=== PATIENT | female | born 1950 | race Caucasian/White ===

== ENCOUNTER 2016-05-08 18:46 | Inpatient (IN) | payer BC, OTHER ==
[~2016-05-08] VITALS: Ht 162.6 cm; Wt 77.1 kg
[~2016-05-08 18:46] MED LIST: ALPR0.254 PO; GABA600T2 PO; HYDR25TA9 PO; LIDO700A4 TP; LOSA25TA4 PO; OMEP40CA5 PO; OXYC-250 PO; POTA8CAP PO; ROPI4TAB4 PO; SERT100T8 PO
[2016-05-08] MEDS: IV NORMAL SALINE 1000ML BAG 1,000 ML IV SCH (20:27)
[2016-05-08] MEDS ORDERED: ONDANSETRON PF 4 MG/2 ML VIAL. IV PRN (20:30)
[2016-05-08] MEDS ORDERED: CEFTRIAXONE 1GM IVPB FOR OMNI 50 ML IV ONE (20:30)
[2016-05-08] MEDS ORDERED: AZITHROMYCIN 500 MG in IV NORMAL SALINE 250ML 250 ML IV ONE (20:30)
--- NOTE | 2016-05-08 20:40 | PHYS DOC ---
Past Medical History Past Medical History: Anxiety, Depression, GERD, Hypertension Additional Past Medical Histor: DDD, RLS Past Surgical History: Appendectomy, Cholecystectomy, Hysterectomy Additional Information: RECENTLY QUIT FROM A LIFETIME OF SMOKING Alcohol Use: None Drug Use: None Adult General Chief Complaint Chief Complaint: BREAST PROBLEM HPI HPI 65-year-old female presents with a persistent nagging cough and severe right- sided chest pain. She states she feels like some stabbing her in the right breast. This is much worse when she takes a deep breath. She states she is coughing up phlegm. She also complains of shortness of breath. She denies any hemoptysis or unintended weight loss. Patient has been a long-term smoker. [] Review of Systems Review of Systems Constitutional: Denies fever or chills [] Eyes: Denies change in visual acuity, redness, or eye pain [] HENT: Denies nasal congestion or sore throat [] Respiratory: Per history of present illness [] Cardiovascular: No additional information not addressed in HPI [] GI: Denies abdominal pain, nausea, vomiting, bloody stools or diarrhea [] : Denies dysuria or hematuria [] Musculoskeletal: Denies back pain or joint pain [] Integument: Denies rash or skin lesions [] Neurologic: Denies headache, focal weakness or sensory changes [] Endocrine: Denies polyuria or polydipsia [] Current Medications Current Medications Current Medications Medications (Trade) Dose Ordered Sig/Eduarda Start Time Stop Time Status Last Admin Dose Admin Azithromycin (Zithromax 500mg Ivpb For Omni) 250 ml @ 250 mls/hr 1X ONCE 05/08/16 20:45 05/08/16 21:44 DC 05/08/16 21:41 250 MLS/HR Azithromycin/ Sodium Chloride (Zithromax/Iv Sodium Chloride 0.9% 250ml) 250 ml @ 250 mls/hr 1X ONCE 05/08/16 20:30 05/08/16 21:29 UNV Ceftriaxone Sodium 50 ml @ 100 mls/hr 1X ONCE 05/08/16 20:30 05/08/16 20:59 DC 05/08/16 21:07 100 MLS/HR Fentanyl Citrate 50 mcg 50 mcg PRN Q2HR PRN 05/08/16 20:30 05/09/16 20:29 05/08/16 21:06 50 MCG Ondansetron HCl (Zofran) 4 mg PRN Q8HRS PRN 05/08/16 20:30 05/09/16 20:29 Sodium Chloride 1,000 ml @ 150 mls/hr Q6H40M 05/08/16 20:27 05/09/16 20:26 Allergies Allergies Allergies Coded Allergies Type Severity Reaction Last Updated Verified No Known Drug Allergies 01/31/16 No Physical Exam Physical Exam Constitutional: Well developed, well nourished, no acute distress, non-toxic appearance. [] HENT: Normocephalic, atraumatic, bilateral external ears normal, oropharynx moist, no oral exudates, nose normal. [] Eyes: PERRLA, EOMI, conjunctiva normal, no discharge. [] Neck: Normal range of motion, no tenderness, supple, no stridor. [] Cardiovascular: Tachycardia [] Lungs & Thorax: Rales right base apical wheezes] Abdomen: Bowel sounds normal, soft, no tenderness, no masses, no pulsatile masses. [] Skin: Warm, dry, no erythema, no rash. [] Back: No tenderness, no CVA tenderness. [] Extremities: No tenderness, no cyanosis, no clubbing, ROM intact, no edema. [] Neurologic: Alert and oriented X 3, normal motor function, normal sensory function, no focal deficits noted. [] Psychologic: Affect normal, judgement normal, mood normal. [] Current Patient Data Vital Signs Vital Signs Date Time Temp Pulse Resp B/P Pulse Ox O2 Delivery O2 Flow Rate FiO2 05/08/16 21:06 Nasal Cannula 05/08/16 19:04 99.3 96 20 137/78 91 99.3 Lab Values Laboratory Tests Test 05/08/16 20:56 White Blood Count 30.4x10^3/uL (4.0-11.0) H Red Blood Count 4.71x10^6/uL (3.50-5.40) Hemoglobin 14.7g/dL (12.0-15.5) Hematocrit 45.4% (36.0-47.0) Mean Corpuscular Volume 96fL (79-100) Mean Corpuscular Hemoglobin 31pg (25-35) Mean Corpuscular Hemoglobin Concent 32g/dL (31-37) Red Cell Distribution Width 13.8% (11.5-14.5) Platelet Count 219x10^3/uL (140-400) Neutrophils (%) (Auto) 90% (31-73) H Lymphocytes (%) (Auto) 4% (24-48) L Monocytes (%) (Auto) 5% (0-9) Eosinophils (%) (Auto) 0% (0-3) Basophils (%) (Auto) 0% (0-3) Neutrophils # (Auto) 27.4x10^3uL (1.8-7.7) H Lymphocytes # (Auto) 1.2x10^3/uL (1.0-4.8) Monocytes # (Auto) 1.6x10^3/uL (0.0-1.1) H Eosinophils # (Auto) 0.1x10^3/uL (0.0-0.7) Basophils # (Auto) 0.1x10^3/uL (0.0-0.2) Segmented Neutrophils % 82% (35-66) H Band Neutrophils % 6% (0-9) Lymphocytes % 3% (24-48) L Monocytes % 9% (0-10) Toxic Granulation Slight Platelet Estimate Adequate (ADEQUATE) Sodium Level 131mmol/L (136-145) L Potassium Level 3.8mmol/L (3.5-5.1) Chloride Level 93mmol/L (98-107) L Carbon Dioxide Level 28mmol/L (21-32) Anion Gap 10 (6-14) Blood Urea Nitrogen 13mg/dL (7-20) Creatinine 0.7mg/dL (0.6-1.0) Estimated GFR (Cockcroft-Gault) 84.5 BUN/Creatinine Ratio 19 (6-20) Glucose Level 123mg/dL (70-99) H Lactic Acid Level 0.7mmol/L (0.4-2.0) Calcium Level 8.8mg/dL (8.5-10.1) Total Bilirubin 1.0mg/dL (0.2-1.0) Aspartate Amino Transferase (AST) 17U/L (15-37) Alanine Aminotransferase (ALT) 13U/L (14-59) L Alkaline Phosphatase 83U/L (46-116) Total Protein 6.9g/dL (6.4-8.2) Albumin 2.6g/dL (3.4-5.0) L Albumin/Globulin Ratio 0.6 (1.0-1.7) L Laboratory Tests 05/08/16 20:56 Laboratory Tests 05/08/16 20:56 EKG EKG [] Radiology/Procedures Radiology/Procedures [Chest x-ray right middle lobe infiltrate] Course & Med Decision Making Course & Med Decision Making Pertinent Labs and Imaging studies reviewed. (See chart for details) [ED course: Evaluation reveals a 65-year-old female with severe right sided chest pain and productive cough as well as moderately hypoxic. Patient was placed on 2 L of oxygen which did help alleviate her symptoms. Her initial oxygen saturation was 86% and after 2 L it was up into the low 90s. She was given Rocephin and azithromycin during her stay in the emergency department I spoke with Dr. Lynn who agreed to accept patient for admission. Patient is in agreement with this plan.] Dragon Disclaimer Dragon Disclaimer This electronic medical record was generated, in whole or in part, using a voice recognition dictation system. Departure Departure Impression: Primary Impression: Community acquired pneumonia Disposition: ADMITTED INPATIENT Admitting Physician: Other (Leah) Condition: IMPROVED Referrals: ROBINSON BOLIVAR MD (PCP) BARRY PAREDES DO May 08, 2016 20:40
[2016-05-08] MEDS ORDERED: AZITHRMYCN 500MG IVPB FOR OMNI 250 ML IV ONE (20:45)
[2016-05-08] MEDS: FENTANYL PF 100 MCG/2 ML VIAL. IV PRN (21:06)
[2016-05-08 21:08] LABS: HEMATOCRIT 45.4 % (36.0-47.0); HEMOGLOBIN 14.7 g/dL (12.0-15.5); MEAN CORPUSCULAR HEMOGLOBIN 31 pg (25-35); MEAN CORPUSCULAR HGB CONC 32 g/dL (31-37); MEAN CORPUSCULAR VOLUME 96 fL (79-100); RED BLOOD COUNT 4.71 x10^6/uL (3.50-5.40); RED CELL DISTRIBUTION WIDTH 13.8 % (11.5-14.5); WHITE BLOOD COUNT 30.4 x10^3/uL (4.0-11.0)
[2016-05-08 21:09] LABS: BASO # 0.1 x10^3/uL (0.0-0.2); BASO % 0 % (0-3); EOS % 0 % (0-3); LYMPH # 1.2 x10^3/uL (1.0-4.8); LYMPH % 4 % (24-48); MONO % 5 % (0-9); NEUT % 90 % (31-73); PLATELET COUNT 219 x10^3/uL (140-400)
[2016-05-08 21:42] LABS: PLT ESTIMATE ADEQUATE (ADEQUATE); TOXIC GRANULATION SLIGHT
[2016-05-08 21:43] LABS: CALCIUM 8.8 mg/dL (8.5-10.1); CREATININE 0.7 mg/dL (0.6-1.0); GFR 84.5; POTASSIUM 3.8 mmol/L (3.5-5.1)
[2016-05-08 21:46] LABS: ALBUMIN 2.6 g/dL (3.4-5.0); ALBUMIN/GLOBULIN RATIO 0.6 (1.0-1.7); TOTAL PROTEIN 6.9 g/dL (6.4-8.2)
--- NOTE | 2016-05-08 23:45 | ACF ---
Admission Forms Criteria PNEUMONIA, COMMUNITY ACQUIRED Clinical Indications for Admission to Inpatient Care ( Place 'X' for any and all applicable criteria): Admission is indicated for ANY ONE of the following (1)(2)(3): [ ]I. Hypoxemia indicated by ANY ONE of the following: [ ]a) Oxygen saturation less than 90% while breathing room air [ ]b) PO2 less than 60 mm Hg (8.0 kPa) while breathing room air [ ]c) Chronic lung disease with significant deterioration from baseline oxygenation [X]II. Appropriate diagnostic testing and treatment unavailable in outpatient or recovery facility (eg,testing or infection control measures unavailable(10) [ ]III. Moderate-risk or high-risk category patients (Pneumonia Severity Index (PSI) class IV or V, or CURB-65 score of 3 or greater). [ ]IV. Outpatient treatment failure as indicated by ANY ONE of the following(9) : [ ]a) Failure to respond to antibiotic (eg, resistant organism) [ ]b) Clinically significant adverse effects from medication (eg, vomiting) [ ]c) Complications of pneumonia (eg, empyema, bacteremia) [ ]d) Significant worsening of comorbid cond necessitating inpatient care (eg, chronic heart failure) [ ]V. Intermediate-risk category patients (eg, PSI class III or CURB-65 score 2) who do not improve with initial therapy and observation. [ ]. Immunocompromised patients (eg, AIDS, chronic steroid use) at moderate or high risk based on clinical evaluation. [ ]VII. Complicated pleural effusions (eg, exudative, loculated) [ ]VIII.Hemodynamic instability [ ] IX. Altered mental status that is severe or persistent. [ ]X. Dehydration that is severe or persistent. [ ]XI. Bacteremia [ ]XII. Respiratory finding (eg. tachypnea) that do not respond to outpatient or observation care treatment Extended stay beyond goal length of stay may be needed for (20) [ ]a) Unclear diagnosis [ ]b) Pleural disease [ ]c) Severe pneumonia or treatment failure (25 [ ]d) Respiratory failure (anticipate invasive or noninvasive ventilatory support) [ ]e) Abnormal serum electrolytes (serum Na concentration less than 135 mEq/L (mmol/L) (32)(33) [ ]f) Clinically significant comorbid illness (eg, heart failure, atrial fibrillation with rapid heart rate, alcohol withdrawal, renal insufficiency)(34)(35) [ ]g) Comorbid acute exacerbation of COPD(36) [ ]h) Concomitant diagnosis of malignancy that may be associated with malnutrition, immunologic impairment, or bronchial obstruction. [ ]i) Concomitant altered mental status [ ]j) Culture-identified Gram-negative or antibiotic-resistant organism (eg, Pseudomonas, methicillin-resistant Staphylococcus aureus)(30) [ ]k) Healthcare-associated pneumonia The original [facility] content created by [employer] has been revised. The portions of the content which have been revised are identified through the use of italic text or in bold, and [facility] has neither reviewed nor approved the modified material. All other unmodified content is copyright [facility]. Please see references footnoted in the original [facility] edition 2016 Admission Criteria Met?: Yes JCARLOS ALBERT. May 08, 2016 23:45
[2016-05-09] VITALS (7 sets, daily range): BP systolic 114–163; BP diastolic 66–85
[2016-05-09] MEDS: IV NORMAL SALINE 1000ML BAG 1,000 ML IV SCH ×3 (02:41→12:39)
[2016-05-09] MEDS: FENTANYL PF 100 MCG/2 ML VIAL. IV PRN ×2 (03:44→07:45)
[2016-05-09 05:20] LABS: BASO # 0.1 x10^3/uL (0.0-0.2); BASO % 0 % (0-3); EOS % 0 % (0-3); HEMOGLOBIN 13.6 g/dL (12.0-15.5); LYMPH # 2.1 x10^3/uL (1.0-4.8); LYMPH % 9 % (24-48); MEAN CORPUSCULAR HEMOGLOBIN 32 pg (25-35); MEAN CORPUSCULAR HGB CONC 32 g/dL (31-37); MEAN CORPUSCULAR VOLUME 97 fL (79-100); MONO % 6 % (0-9); NEUT % 85 % (31-73); PLATELET COUNT 212 x10^3/uL (140-400); RED BLOOD COUNT 4.32 x10^6/uL (3.50-5.40); RED CELL DISTRIBUTION WIDTH 13.5 % (11.5-14.5); WHITE BLOOD COUNT 24.4 x10^3/uL (4.0-11.0)
[2016-05-09 05:42] LABS: CALCIUM 8.8 mg/dL (8.5-10.1); CREATININE 0.7 mg/dL (0.6-1.0); GFR 84.5; POTASSIUM 3.7 mmol/L (3.5-5.1)
--- NOTE | 2016-05-09 07:50 | PDOC1 ---
History and Physical Current Problem List Problem List Problems Medical Problems: (1) Community acquired pneumonia Status: Acute Current Medications Current Medications Current Medications Medications (Trade) Dose Ordered Sig/Eduarda Start Time Stop Time Status Last Admin Dose Admin Azithromycin (Zithromax 500mg Ivpb For Omni) 250 ml @ 250 mls/hr 1X ONCE 05/08/16 20:45 05/08/16 21:44 DC 05/08/16 21:41 250 MLS/HR Azithromycin/ Sodium Chloride (Zithromax/Iv Sodium Chloride 0.9% 250ml) 250 ml @ 250 mls/hr 1X ONCE 05/08/16 20:30 05/08/16 21:29 UNV Ceftriaxone Sodium 50 ml @ 100 mls/hr 1X ONCE 05/08/16 20:30 05/08/16 20:59 DC 05/08/16 21:07 100 MLS/HR Fentanyl Citrate 50 mcg 50 mcg PRN Q2HR PRN 05/08/16 20:30 05/09/16 20:29 05/09/16 07:45 50 MCG Ondansetron HCl (Zofran) 4 mg PRN Q8HRS PRN 05/08/16 20:30 05/09/16 20:29 Sodium Chloride 1,000 ml @ 150 mls/hr Q6H40M 05/08/16 20:27 05/09/16 20:26 05/09/16 02:41 150 MLS/HR Allergies Allergies Allergies Coded Allergies Type Severity Reaction Last Updated Verified No Known Drug Allergies 01/31/16 No ROS Review of System CONSTITUTIONAL: No fever or chills EYES: No recent changes SKIN: No rash or itching CARDIOVASCULAR: No chest pain, syncope, palpitations, or edema RESPIRATORY: SOB or cough GASTROINTESTINAL: No nausea, vomiting or abdominal pain NEUROLOGICAL: No headaches or weakness ENDOCRINE: No cold or heat intolerance GENITOURINARY: No urgency or frequency of urination MUSCULOSKELETAL: No back pain or joint pain LYMPHATICS: No enlarged lymph nodes PSYCHIATRIC: No anxiety or depression Physical Exam Physical Exam GEN.: No apparent distress. Alert and oriented. HEENT: Head is normocephalic, atraumatic NECK: Supple. no jvd LUNGS: Clear to auscultation. normal airflow HEART: RRR, S1, S2 present. Peripheral pulses intact ABDOMEN: Soft, nontender. Positive bowel sounds. EXTREMITIES: Without any cyanosis. NEUROLOGIC: Normal speech, normal tone PSYCHIATRIC: Normal affect, normal mood. SKIN: No ulcerations Vitals Vitals Vital Signs Date Time Temp Pulse Resp B/P Pulse Ox O2 Delivery O2 Flow Rate FiO2 05/09/16 03:44 18 90 Room Air 05/09/16 03:00 98.3 78 116/76 98.3 Labs Labs Laboratory Tests Test 05/08/16 20:56 05/08/16 23:15 05/09/16 04:50 White Blood Count 30.4x10^3/uL (4.0-11.0) 24.4x10^3/uL (4.0-11.0) Red Blood Count 4.71x10^6/uL (3.50-5.40) 4.32x10^6/uL (3.50-5.40) Hemoglobin 14.7g/dL (12.0-15.5) 13.6g/dL (12.0-15.5) Hematocrit 45.4% (36.0-47.0) 42.0% (36.0-47.0) Mean Corpuscular Volume 96fL (79-100) 97fL (79-100) Mean Corpuscular Hemoglobin 31pg (25-35) 32pg (25-35) Mean Corpuscular Hemoglobin Concent 32g/dL (31-37) 32g/dL (31-37) Red Cell Distribution Width 13.8% (11.5-14.5) 13.5% (11.5-14.5) Platelet Count 219x10^3/uL (140-400) 212x10^3/uL (140-400) Neutrophils (%) (Auto) 90% (31-73) 85% (31-73) Lymphocytes (%) (Auto) 4% (24-48) 9% (24-48) Monocytes (%) (Auto) 5% (0-9) 6% (0-9) Eosinophils (%) (Auto) 0% (0-3) 0% (0-3) Basophils (%) (Auto) 0% (0-3) 0% (0-3) Neutrophils # (Auto) 27.4x10^3uL (1.8-7.7) 20.8x10^3uL (1.8-7.7) Lymphocytes # (Auto) 1.2x10^3/uL (1.0-4.8) 2.1x10^3/uL (1.0-4.8) Monocytes # (Auto) 1.6x10^3/uL (0.0-1.1) 1.4x10^3/uL (0.0-1.1) Eosinophils # (Auto) 0.1x10^3/uL (0.0-0.7) 0.0x10^3/uL (0.0-0.7) Basophils # (Auto) 0.1x10^3/uL (0.0-0.2) 0.1x10^3/uL (0.0-0.2) Segmented Neutrophils % 82% (35-66) Band Neutrophils % 6% (0-9) Lymphocytes % 3% (24-48) Monocytes % 9% (0-10) Toxic Granulation Slight Platelet Estimate Adequate (ADEQUATE) Sodium Level 131mmol/L (136-145) 137mmol/L (136-145) Potassium Level 3.8mmol/L (3.5-5.1) 3.7mmol/L (3.5-5.1) Chloride Level 93mmol/L (98-107) 99mmol/L (98-107) Carbon Dioxide Level 28mmol/L (21-32) 29mmol/L (21-32) Anion Gap 10 (6-14) 9 (6-14) Blood Urea Nitrogen 13mg/dL (7-20) 13mg/dL (7-20) Creatinine 0.7mg/dL (0.6-1.0) 0.7mg/dL (0.6-1.0) Estimated GFR (Cockcroft-Gault) 84.5 84.5 BUN/Creatinine Ratio 19 (6-20) Glucose Level 123mg/dL (70-99) 115mg/dL (70-99) Lactic Acid Level 0.7mmol/L (0.4-2.0) 0.7mmol/L (0.4-2.0) Calcium Level 8.8mg/dL (8.5-10.1) 8.8mg/dL (8.5-10.1) Total Bilirubin 1.0mg/dL (0.2-1.0) Aspartate Amino Transf (AST/SGOT) 17U/L (15-37) Alanine Aminotransferase (ALT/SGPT) 13U/L (14-59) Alkaline Phosphatase 83U/L (46-116) Total Protein 6.9g/dL (6.4-8.2) Albumin 2.6g/dL (3.4-5.0) Albumin/Globulin Ratio 0.6 (1.0-1.7) Laboratory Tests Test 05/08/16 20:56 05/08/16 23:15 05/09/16 04:50 White Blood Count 30.4x10^3/uL (4.0-11.0) 24.4x10^3/uL (4.0-11.0) Red Blood Count 4.71x10^6/uL (3.50-5.40) 4.32x10^6/uL (3.50-5.40) Hemoglobin 14.7g/dL (12.0-15.5) 13.6g/dL (12.0-15.5) Hematocrit 45.4% (36.0-47.0) 42.0% (36.0-47.0) Mean Corpuscular Volume 96fL (79-100) 97fL (79-100) Mean Corpuscular Hemoglobin 31pg (25-35) 32pg (25-35) Mean Corpuscular Hemoglobin Concent 32g/dL (31-37) 32g/dL (31-37) Red Cell Distribution Width 13.8% (11.5-14.5) 13.5% (11.5-14.5) Platelet Count 219x10^3/uL (140-400) 212x10^3/uL (140-400) Neutrophils (%) (Auto) 90% (31-73) 85% (31-73) Lymphocytes (%) (Auto) 4% (24-48) 9% (24-48) Monocytes (%) (Auto) 5% (0-9) 6% (0-9) Eosinophils (%) (Auto) 0% (0-3) 0% (0-3) Basophils (%) (Auto) 0% (0-3) 0% (0-3) Neutrophils # (Auto) 27.4x10^3uL (1.8-7.7) 20.8x10^3uL (1.8-7.7) Lymphocytes # (Auto) 1.2x10^3/uL (1.0-4.8) 2.1x10^3/uL (1.0-4.8) Monocytes # (Auto) 1.6x10^3/uL (0.0-1.1) 1.4x10^3/uL (0.0-1.1) Eosinophils # (Auto) 0.1x10^3/uL (0.0-0.7) 0.0x10^3/uL (0.0-0.7) Basophils # (Auto) 0.1x10^3/uL (0.0-0.2) 0.1x10^3/uL (0.0-0.2) Segmented Neutrophils % 82% (35-66) Band Neutrophils % 6% (0-9) Lymphocytes % 3% (24-48) Monocytes % 9% (0-10) Toxic Granulation Slight Platelet Estimate Adequate (ADEQUATE) Sodium Level 131mmol/L (136-145) 137mmol/L (136-145) Potassium Level 3.8mmol/L (3.5-5.1) 3.7mmol/L (3.5-5.1) Chloride Level 93mmol/L (98-107) 99mmol/L (98-107) Carbon Dioxide Level 28mmol/L (21-32) 29mmol/L (21-32) Anion Gap 10 (6-14) 9 (6-14) Blood Urea Nitrogen 13mg/dL (7-20) 13mg/dL (7-20) Creatinine 0.7mg/dL (0.6-1.0) 0.7mg/dL (0.6-1.0) Estimated GFR (Cockcroft-Gault) 84.5 84.5 BUN/Creatinine Ratio 19 (6-20) Glucose Level 123mg/dL (70-99) 115mg/dL (70-99) Lactic Acid Level 0.7mmol/L (0.4-2.0) 0.7mmol/L (0.4-2.0) Calcium Level 8.8mg/dL (8.5-10.1) 8.8mg/dL (8.5-10.1) Total Bilirubin 1.0mg/dL (0.2-1.0) Aspartate Amino Transf (AST/SGOT) 17U/L (15-37) Alanine Aminotransferase (ALT/SGPT) 13U/L (14-59) Alkaline Phosphatase 83U/L (46-116) Total Protein 6.9g/dL (6.4-8.2) Albumin 2.6g/dL (3.4-5.0) Albumin/Globulin Ratio 0.6 (1.0-1.7) VTE Prophylaxis Ordered VTE Prophylaxis Devices: No VTE Pharmacological Prophylaxi: No BARBARA REID MD May 09, 2016 07:50
--- NOTE | 2016-05-09 08:14 | RAD ---
Portable chest, 05/08/2016: History: Cough, pain Comparison is made to a study from 06/07/2007. The heart size and pulmonary vascularity are normal. There is a new moderate-sized lobe opacity projected over the right lower chest. The left lung is clear. There is no evidence of pleural fluid or pneumothorax. A surgical plate and screws is evident in the lower cervical spine. IMPRESSION: New right lower chest opacity with diagnostic considerations including parenchymal consolidation due to pneumonia or a fissural collection of pleural fluid. A neoplastic etiology cannot be excluded. Radiographic follow-up and/or CT scanning is suggested.
--- NOTE | 2016-05-09 08:57 | PDOC ---
PULMONARY PROGRESS NOTES Vitals Vital Signs Date Time Temp Pulse Resp B/P Pulse Ox O2 Delivery O2 Flow Rate FiO2 05/09/16 07:50 98.2 72 18 134/81 Room Air 98.2 05/09/16 03:44 90 Labs Laboratory Tests Test 05/08/16 20:56 05/08/16 23:15 05/09/16 04:50 White Blood Count 30.4x10^3/uL (4.0-11.0) 24.4x10^3/uL (4.0-11.0) Red Blood Count 4.71x10^6/uL (3.50-5.40) 4.32x10^6/uL (3.50-5.40) Hemoglobin 14.7g/dL (12.0-15.5) 13.6g/dL (12.0-15.5) Hematocrit 45.4% (36.0-47.0) 42.0% (36.0-47.0) Mean Corpuscular Volume 96fL (79-100) 97fL (79-100) Mean Corpuscular Hemoglobin 31pg (25-35) 32pg (25-35) Mean Corpuscular Hemoglobin Concent 32g/dL (31-37) 32g/dL (31-37) Red Cell Distribution Width 13.8% (11.5-14.5) 13.5% (11.5-14.5) Platelet Count 219x10^3/uL (140-400) 212x10^3/uL (140-400) Neutrophils (%) (Auto) 90% (31-73) 85% (31-73) Lymphocytes (%) (Auto) 4% (24-48) 9% (24-48) Monocytes (%) (Auto) 5% (0-9) 6% (0-9) Eosinophils (%) (Auto) 0% (0-3) 0% (0-3) Basophils (%) (Auto) 0% (0-3) 0% (0-3) Neutrophils # (Auto) 27.4x10^3uL (1.8-7.7) 20.8x10^3uL (1.8-7.7) Lymphocytes # (Auto) 1.2x10^3/uL (1.0-4.8) 2.1x10^3/uL (1.0-4.8) Monocytes # (Auto) 1.6x10^3/uL (0.0-1.1) 1.4x10^3/uL (0.0-1.1) Eosinophils # (Auto) 0.1x10^3/uL (0.0-0.7) 0.0x10^3/uL (0.0-0.7) Basophils # (Auto) 0.1x10^3/uL (0.0-0.2) 0.1x10^3/uL (0.0-0.2) Segmented Neutrophils % 82% (35-66) Band Neutrophils % 6% (0-9) Lymphocytes % 3% (24-48) Monocytes % 9% (0-10) Toxic Granulation Slight Platelet Estimate Adequate (ADEQUATE) Sodium Level 131mmol/L (136-145) 137mmol/L (136-145) Potassium Level 3.8mmol/L (3.5-5.1) 3.7mmol/L (3.5-5.1) Chloride Level 93mmol/L (98-107) 99mmol/L (98-107) Carbon Dioxide Level 28mmol/L (21-32) 29mmol/L (21-32) Anion Gap 10 (6-14) 9 (6-14) Blood Urea Nitrogen 13mg/dL (7-20) 13mg/dL (7-20) Creatinine 0.7mg/dL (0.6-1.0) 0.7mg/dL (0.6-1.0) Estimated GFR (Cockcroft-Gault) 84.5 84.5 BUN/Creatinine Ratio 19 (6-20) Glucose Level 123mg/dL (70-99) 115mg/dL (70-99) Lactic Acid Level 0.7mmol/L (0.4-2.0) 0.7mmol/L (0.4-2.0) Calcium Level 8.8mg/dL (8.5-10.1) 8.8mg/dL (8.5-10.1) Total Bilirubin 1.0mg/dL (0.2-1.0) Aspartate Amino Transf (AST/SGOT) 17U/L (15-37) Alanine Aminotransferase (ALT/SGPT) 13U/L (14-59) Alkaline Phosphatase 83U/L (46-116) Total Protein 6.9g/dL (6.4-8.2) Albumin 2.6g/dL (3.4-5.0) Albumin/Globulin Ratio 0.6 (1.0-1.7) Laboratory Tests Test 05/08/16 20:56 05/08/16 23:15 05/09/16 04:50 White Blood Count 30.4x10^3/uL (4.0-11.0) 24.4x10^3/uL (4.0-11.0) Red Blood Count 4.71x10^6/uL (3.50-5.40) 4.32x10^6/uL (3.50-5.40) Hemoglobin 14.7g/dL (12.0-15.5) 13.6g/dL (12.0-15.5) Hematocrit 45.4% (36.0-47.0) 42.0% (36.0-47.0) Mean Corpuscular Volume 96fL (79-100) 97fL (79-100) Mean Corpuscular Hemoglobin 31pg (25-35) 32pg (25-35) Mean Corpuscular Hemoglobin Concent 32g/dL (31-37) 32g/dL (31-37) Red Cell Distribution Width 13.8% (11.5-14.5) 13.5% (11.5-14.5) Platelet Count 219x10^3/uL (140-400) 212x10^3/uL (140-400) Neutrophils (%) (Auto) 90% (31-73) 85% (31-73) Lymphocytes (%) (Auto) 4% (24-48) 9% (24-48) Monocytes (%) (Auto) 5% (0-9) 6% (0-9) Eosinophils (%) (Auto) 0% (0-3) 0% (0-3) Basophils (%) (Auto) 0% (0-3) 0% (0-3) Neutrophils # (Auto) 27.4x10^3uL (1.8-7.7) 20.8x10^3uL (1.8-7.7) Lymphocytes # (Auto) 1.2x10^3/uL (1.0-4.8) 2.1x10^3/uL (1.0-4.8) Monocytes # (Auto) 1.6x10^3/uL (0.0-1.1) 1.4x10^3/uL (0.0-1.1) Eosinophils # (Auto) 0.1x10^3/uL (0.0-0.7) 0.0x10^3/uL (0.0-0.7) Basophils # (Auto) 0.1x10^3/uL (0.0-0.2) 0.1x10^3/uL (0.0-0.2) Segmented Neutrophils % 82% (35-66) Band Neutrophils % 6% (0-9) Lymphocytes % 3% (24-48) Monocytes % 9% (0-10) Toxic Granulation Slight Platelet Estimate Adequate (ADEQUATE) Sodium Level 131mmol/L (136-145) 137mmol/L (136-145) Potassium Level 3.8mmol/L (3.5-5.1) 3.7mmol/L (3.5-5.1) Chloride Level 93mmol/L (98-107) 99mmol/L (98-107) Carbon Dioxide Level 28mmol/L (21-32) 29mmol/L (21-32) Anion Gap 10 (6-14) 9 (6-14) Blood Urea Nitrogen 13mg/dL (7-20) 13mg/dL (7-20) Creatinine 0.7mg/dL (0.6-1.0) 0.7mg/dL (0.6-1.0) Estimated GFR (Cockcroft-Gault) 84.5 84.5 BUN/Creatinine Ratio 19 (6-20) Glucose Level 123mg/dL (70-99) 115mg/dL (70-99) Lactic Acid Level 0.7mmol/L (0.4-2.0) 0.7mmol/L (0.4-2.0) Calcium Level 8.8mg/dL (8.5-10.1) 8.8mg/dL (8.5-10.1) Total Bilirubin 1.0mg/dL (0.2-1.0) Aspartate Amino Transf (AST/SGOT) 17U/L (15-37) Alanine Aminotransferase (ALT/SGPT) 13U/L (14-59) Alkaline Phosphatase 83U/L (46-116) Total Protein 6.9g/dL (6.4-8.2) Albumin 2.6g/dL (3.4-5.0) Albumin/Globulin Ratio 0.6 (1.0-1.7) Medications Active Scripts Medications Dose Route/Sig Days Date Category Losartan Potassium 25 Mg Tablet 25 Mg PO DAILY 01/31/16 Reported Gabapentin 600 Mg Tablet 600 Mg PO TID 01/31/16 Reported Ropinirole Hcl 4 Mg Tablet 4 Mg PO DAILY 01/31/16 Reported Lidoderm (Lidocaine) 700 Mg Adh..patch 1 Patch TP DAILY 01/31/16 Reported Sertraline Hcl 100 Mg Tablet 100 Mg PO DAILY 01/31/16 Reported Omeprazole 40 Mg Capsule.dr 1 Cap PO DAILY 01/31/16 Reported Hydrochlorothiazide Tablet (Hydrochlorothiazide) 25 Mg Tablet 1 Tab PO DAILY 01/31/16 Reported Potassium Chloride 8 Meq Capsule.er 8 Meq PO BID 01/31/16 Reported Alprazolam 0.25 Mg Tablet 0.25 Mg PO PRN Q6HRS PRN 01/31/16 Reported Percocet 10-325 Mg Tablet (Oxycodone/Acetaminophen) 1 Each Tablet 1 Tab PO Q4-6HRS 01/31/16 Reported Impression . full note dictated treat for pneumonia repeat CT in 2 months MILA ARORA MD May 09, 2016 08:57
[2016-05-09] MEDS ORDERED: hydrALAZINE 20 MG/ML VIAL. IVP PRN (09:00)
[2016-05-09] MEDS ORDERED: ALBUTEROL SULFATE 2.5 MG/3 ML NEBU. NEB PRN (09:00)
[2016-05-09] MEDS ORDERED: ACETAMINOPHEN 325 MG TABLET. PO PRN (09:00)
[2016-05-09] MEDS ORDERED: ONDANSETRON PF 4 MG/2 ML VIAL. IV PRN (09:00)
[2016-05-09] MEDS: HYDROCODONE/APAP 5/325MG TABLET. PO PRN (10:45)
[2016-05-09] MEDS ORDERED: rOPINIRole 1 MG TABLET. PO SCH (11:00)
[2016-05-09] MEDS: PANTOPRAZOLE 40 MG TABLET. PO SCH (11:38)
[2016-05-09] MEDS: LOSARTAN POTASSIUM 25 MG TABLET. PO SCH (11:38)
[2016-05-09] MEDS: SERTRALINE 50 MG TABLET. PO SCH (11:38)
[2016-05-09] MEDS: ENOXAPARIN 40 MG/0.4 ML SYRINGE. SQ SCH (11:44)
[2016-05-09] MEDS: LIDOCAINE (700MG/PATCH) PATCH. TP SCH (11:49)
[2016-05-09] MEDS: OXYCODONE/APAP 10/325 TABLET. PO SCH ×3 (12:37→21:21)
--- NOTE | 2016-05-09 13:15 | HP ---
ADMIT DATE: 05/08/2016 CHIEF COMPLAINT: Cough and breast pain. HISTORY OF PRESENT ILLNESS: A 65-year-old female patient with cough and shortness of breath for nearly 1 week, presented to the ER with complaints of severe right-sided chest pain, worse with breathing. The patient quit smoking nearly 3-4 weeks ago. At the time of her presentation, the patient was in low saturations around 86%, was requiring 2 liters of oxygen to keep up around 90%, but initial chest x-ray showed a pneumonia. The patient was admitted to the hospital for a community-acquired pneumonia. She denies any fever, chills, sick contacts, or travel history. All her chronic problems are stable. PAST MEDICAL HISTORY: Anxiety, depression, GERD, hypertension. PAST SURGICAL HISTORY: Appendectomy, cholecystectomy, hysterectomy. FAMILY HISTORY: Not known. PERSONAL HISTORY: No smoking; quit smoking nearly few weeks ago. No alcohol abuse, no substance abuse. ALLERGIES: NKDA. REVIEW OF SYSTEMS AND PHYSICAL EXAMINATION: Please see my electronic H and P. LABORATORY DATA: WBC is 24,000; hemoglobin is 13.6; MCV is 97; MCHC is 32; platelets 212; neutrophils 20.8; toxic granulation present. Chemistry: Sodium 131, potassium 3.8, chloride is 98. BUN to creatinine ratio is 19. ASSESSMENT AND PLAN: 1. Community acquired pneumonia, present on admission. 2. Anxiety. 3. Depression. 4. Gastroesophageal reflux disease. 5. Questionable hypertension. PLAN: 1. She has been started on Rocephin and Zithromax; we will continue that. We will consult Pulmonology for further recommendations. 2. Home medications not yet verified. We will call pharmacy, discussed with RN. 3. P.r.n. nebulizations. 4. Supplemental oxygen as needed to keep saturations around 90%. 5. Monitor CBC. 6. DVT prophylaxis with Lovenox. BARBARA REID MD DR: KASHIF/aleksandra JOB#: [id number] / [id number] LORI
--- NOTE | 2016-05-09 13:25 | RAD ---
EXAM: Chest CT without intravenous contrast. HISTORY: Pneumonia. TECHNIQUE: Computed tomographic images of the chest were obtained without contrast. Multiplanar reformatting was performed. COMPARISON: Chest radiograph dated 05/08/2016. FINDINGS: There is consolidated infiltrate containing air bronchograms within the right middle lobe. There is also groundglass opacity with slight septal line thickening within the right upper lobe and superior segment of the right lower lobe due to multifocal infiltrate. There is no effusion or pneumothorax. There is mild emphysema. There are multiple small noncalcified pulmonary nodules, the largest of which measure 5 mm within the left upper lobe. This may be due to nodular infiltrate. There are few calcified granulomas. The heart is upper normal in size. There is coronary artery atherosclerosis. There are enlarged mediastinal and right greater than left hilar lymph nodes, possibly reactive in etiology. The liver appears mildly enlarged and there is suspected hepatic steatosis. There is left adrenal gland thickening without a discrete nodule. There is a 5 mm left renal vascular calcification. There is cervical spinal fusion instrumentation. There are healed anterior left rib fractures. There is degenerative endplate remodeling and there are disc bulges at multiple thoracic vertebral levels. There is a superimposed posterior central to left paracentral disc protrusion at T8-T9, likely contribute to mild central canal stenosis. IMPRESSION: 1. Consolidated pneumonia within the right middle lobe and additional patchy infiltrate throughout the right upper lobe and superior segment of the right lower lobe. Follow-up to confirm resolution and exclude an underlying central obstructing lesion. 2. Multiple small pulmonary nodules, the largest of which measure 5 mm within the left upper lobe. These may be post infectious or post inflammatory. Follow-up can be performed according to Fleischner Society criteria to confirm benignity. 3. Multiple prominent mediastinal and right greater left hilar lymph nodes, possibly reactive in etiology. Attention at the time of follow-up is recommended. PQRS Compliance Statement: One or more of the following individualized dose reduction techniques were utilized for this examination: 1. Automated exposure control 2. Adjustment of the mA and/or kV according to patient size 3. Use of iterative reconstruction technique
[2016-05-09] MEDS: GABAPENTIN 300 MG CAPSULE. PO SCH ×2 (17:21→21:21)
[2016-05-09] MEDS: AZITHROMYCIN 250 MG TABLET PO SCH (21:21)
[2016-05-09] MEDS: CEFTRIAXONE SODIUM 1 GM in IV NORMAL SALINE 50ML 50 ML IV SCH (21:21)
[2016-05-09] MEDS: rOPINIRole 1 MG TABLET. PO SCH (21:22)
[2016-05-09] MEDS: ALPRAZOLAM 0.25 MG TABLET. PO PRN (21:22)
[2016-05-10 03:00] VITALS: BP 144/89
[2016-05-10] MEDS: ALPRAZOLAM 0.25 MG TABLET. PO PRN ×2 (04:32→20:53)
[2016-05-10] MEDS: HYDROCODONE/APAP 5/325MG TABLET. PO PRN (04:32)
[2016-05-10] MEDS: PANTOPRAZOLE 40 MG TABLET. PO SCH (05:24)
--- NOTE | 2016-05-10 06:28 | CONS ---
DATE OF CONSULTATION: ATTENDING PHYSICIAN: Kesha Hernandez M.D. REASON FOR CONSULTATION: The patient seen in pulmonary consultation at the request of Dr. Hernandez for abnormal CT of the chest. HISTORY OF PRESENT ILLNESS: The patient is a 65-year-old female that was admitted through the Emergency Room with increasing shortness of breath, cough, mostly nonproductive. She has been treated multiple times as an outpatient with no significant improvement. She quit tobacco approximately 3 weeks ago. The patient was admitted and worked up with a CT chest. I have reviewed the CT, there is consolidation in the right middle lobe and there is also multiple small pulmonary nodules measuring 5 mm within the left upper lobe, multiple prominent mediastinal right and left hilar lymph nodes. The patient reports no fever, chills or night sweats. PAST MEDICAL HISTORY: COPD, tobacco dependence, anxiety, depression, gastroesophageal reflux, hypertension. PAST SURGICAL HISTORY: Status post appendectomy, cholecystectomy, hysterectomy. SOCIAL HISTORY: She quit tobacco three months ago. REVIEW OF SYSTEMS: As indicated above, otherwise, a 10-point system was reviewed and negative. HOME MEDICATIONS: List was reviewed. Please see the MRAD. CURRENT MEDICATION: List was likewise reviewed. Please see the MRAD. ALLERGIES: No known drug allergies. FAMILY HISTORY: No family history of lung cancer. PHYSICAL EXAMINATION: GENERAL: The patient was in no respiratory distress. VITAL SIGNS: Stable. O2 saturation greater than 92% currently on room air. HEENT: Eyes, the sclerae were nonicteric. NECK: Jugular venous distention was not elevated. No lymphadenopathy. CHEST: Full expansion. LUNGS: Coarse breath sounds with no wheezes. CARDIOVASCULAR: Regular rate and rhythm with S1, S2, no S3. ABDOMEN: Soft, nontender, nondistended. EXTREMITIES: No clubbing, cyanosis or edema. NEUROLOGIC: The patient was awake, alert, following commands. A detailed neuro exam was not performed. LABORATORY DATA: Labs were reviewed. White count was elevated. Hemoglobin and hematocrit were noted. Electrolytes were noted. BUN and creatinine were normal. Albumin upon admission was low. IMPRESSION: 1. Abnormal CT of the chest revealing evidence of consolidation in the right upper lobe and multiple pulmonary nodules along with adenopathy. 2. Suspect gram-negative, possibly gram-positive pneumonia. 3. Cough, multifactorial in nature, suspect secondary to above and reflux. 4. Gastroesophageal reflux. 5. Tobacco dependence. 6. Anxiety/depression. 7. Acute exacerbation of COPD. PLAN: 1. Continue current antibiotics. 2. Followup CT in 2 months. 3. DVT prophylaxis. 4. Bronchodilators. 5. The patient instructed on the importance to discontinue all caffeinated beverages. 6. Steroids. 7. Antireflux medication. Dr. Hernandez, I do appreciate the privilege in sharing in the patient's care. MILA ARORA MD DR: LAVELL/aleksandra JOB#: [id number] / [id number]
[2016-05-10 06:56] LABS: BASO % 0 % (0-3); EOS % 1 % (0-3); HEMATOCRIT 40.2 % (36.0-47.0); HEMOGLOBIN 13.2 g/dL (12.0-15.5); LYMPH # 1.5 x10^3/uL (1.0-4.8); LYMPH % 16 % (24-48); MEAN CORPUSCULAR HEMOGLOBIN 32 pg (25-35); MEAN CORPUSCULAR HGB CONC 33 g/dL (31-37); MEAN CORPUSCULAR VOLUME 97 fL (79-100); MONO % 8 % (0-9); NEUT % 75 % (31-73); PLATELET COUNT 217 x10^3/uL (140-400); RED BLOOD COUNT 4.16 x10^6/uL (3.50-5.40); RED CELL DISTRIBUTION WIDTH 13.9 % (11.5-14.5); WHITE BLOOD COUNT 9.3 x10^3/uL (4.0-11.0)
[2016-05-10 07:00] VITALS: BP 137/92
[2016-05-10 07:13] LABS: CALCIUM 8.6 mg/dL (8.5-10.1); CREATININE 0.5 mg/dL (0.6-1.0); GFR 124.6; POTASSIUM 4.1 mmol/L (3.5-5.1)
--- NOTE | 2016-05-10 08:47 | PDOC ---
PULMONARY PROGRESS NOTES Subjective pt less soa and less cough Vitals Vital Signs Date Time Temp Pulse Resp B/P Pulse Ox O2 Delivery O2 Flow Rate FiO2 05/10/16 05:38 18 90 Room Air 05/10/16 03:00 97.8 71 144/89 97.8 ROS: No Nausea, No Chest Pain, No Abdominal Pain, No Increase Cough General: Alert Lungs: Clear Cardiovascular: S1, S2 Abdomen: Soft, Non-tender Neuro Exam: Alert Extremities: No Edema Skin: Warm Labs Laboratory Tests Test 05/08/16 20:56 05/08/16 23:15 05/09/16 04:50 05/10/16 06:20 White Blood Count 30.4x10^3/uL (4.0-11.0) 24.4x10^3/uL (4.0-11.0) 9.3x10^3/uL (4.0-11.0) Red Blood Count 4.71x10^6/uL (3.50-5.40) 4.32x10^6/uL (3.50-5.40) 4.16x10^6/uL (3.50-5.40) Hemoglobin 14.7g/dL (12.0-15.5) 13.6g/dL (12.0-15.5) 13.2g/dL (12.0-15.5) Hematocrit 45.4% (36.0-47.0) 42.0% (36.0-47.0) 40.2% (36.0-47.0) Mean Corpuscular Volume 96fL (79-100) 97fL (79-100) 97fL (79-100) Mean Corpuscular Hemoglobin 31pg (25-35) 32pg (25-35) 32pg (25-35) Mean Corpuscular Hemoglobin Concent 32g/dL (31-37) 32g/dL (31-37) 33g/dL (31-37) Red Cell Distribution Width 13.8% (11.5-14.5) 13.5% (11.5-14.5) 13.9% (11.5-14.5) Platelet Count 219x10^3/uL (140-400) 212x10^3/uL (140-400) 217x10^3/uL (140-400) Neutrophils (%) (Auto) 90% (31-73) 85% (31-73) 75% (31-73) Lymphocytes (%) (Auto) 4% (24-48) 9% (24-48) 16% (24-48) Monocytes (%) (Auto) 5% (0-9) 6% (0-9) 8% (0-9) Eosinophils (%) (Auto) 0% (0-3) 0% (0-3) 1% (0-3) Basophils (%) (Auto) 0% (0-3) 0% (0-3) 0% (0-3) Neutrophils # (Auto) 27.4x10^3uL (1.8-7.7) 20.8x10^3uL (1.8-7.7) 7.0x10^3uL (1.8-7.7) Lymphocytes # (Auto) 1.2x10^3/uL (1.0-4.8) 2.1x10^3/uL (1.0-4.8) 1.5x10^3/uL (1.0-4.8) Monocytes # (Auto) 1.6x10^3/uL (0.0-1.1) 1.4x10^3/uL (0.0-1.1) 0.7x10^3/uL (0.0-1.1) Eosinophils # (Auto) 0.1x10^3/uL (0.0-0.7) 0.0x10^3/uL (0.0-0.7) 0.1x10^3/uL (0.0-0.7) Basophils # (Auto) 0.1x10^3/uL (0.0-0.2) 0.1x10^3/uL (0.0-0.2) 0.0x10^3/uL (0.0-0.2) Segmented Neutrophils % 82% (35-66) Band Neutrophils % 6% (0-9) Lymphocytes % 3% (24-48) Monocytes % 9% (0-10) Toxic Granulation Slight Platelet Estimate Adequate (ADEQUATE) Sodium Level 131mmol/L (136-145) 137mmol/L (136-145) 137mmol/L (136-145) Potassium Level 3.8mmol/L (3.5-5.1) 3.7mmol/L (3.5-5.1) 4.1mmol/L (3.5-5.1) Chloride Level 93mmol/L (98-107) 99mmol/L (98-107) 102mmol/L (98-107) Carbon Dioxide Level 28mmol/L (21-32) 29mmol/L (21-32) 24mmol/L (21-32) Anion Gap 10 (6-14) 9 (6-14) 11 (6-14) Blood Urea Nitrogen 13mg/dL (7-20) 13mg/dL (7-20) 13mg/dL (7-20) Creatinine 0.7mg/dL (0.6-1.0) 0.7mg/dL (0.6-1.0) 0.5mg/dL (0.6-1.0) Estimated GFR (Cockcroft-Gault) 84.5 84.5 124.6 BUN/Creatinine Ratio 19 (6-20) Glucose Level 123mg/dL (70-99) 115mg/dL (70-99) 87mg/dL (70-99) Lactic Acid Level 0.7mmol/L (0.4-2.0) 0.7mmol/L (0.4-2.0) Calcium Level 8.8mg/dL (8.5-10.1) 8.8mg/dL (8.5-10.1) 8.6mg/dL (8.5-10.1) Total Bilirubin 1.0mg/dL (0.2-1.0) Aspartate Amino Transf (AST/SGOT) 17U/L (15-37) Alanine Aminotransferase (ALT/SGPT) 13U/L (14-59) Alkaline Phosphatase 83U/L (46-116) Total Protein 6.9g/dL (6.4-8.2) Albumin 2.6g/dL (3.4-5.0) Albumin/Globulin Ratio 0.6 (1.0-1.7) Laboratory Tests Test 05/10/16 06:20 White Blood Count 9.3x10^3/uL (4.0-11.0) Red Blood Count 4.16x10^6/uL (3.50-5.40) Hemoglobin 13.2g/dL (12.0-15.5) Hematocrit 40.2% (36.0-47.0) Mean Corpuscular Volume 97fL (79-100) Mean Corpuscular Hemoglobin 32pg (25-35) Mean Corpuscular Hemoglobin Concent 33g/dL (31-37) Red Cell Distribution Width 13.9% (11.5-14.5) Platelet Count 217x10^3/uL (140-400) Neutrophils (%) (Auto) 75% (31-73) Lymphocytes (%) (Auto) 16% (24-48) Monocytes (%) (Auto) 8% (0-9) Eosinophils (%) (Auto) 1% (0-3) Basophils (%) (Auto) 0% (0-3) Neutrophils # (Auto) 7.0x10^3uL (1.8-7.7) Lymphocytes # (Auto) 1.5x10^3/uL (1.0-4.8) Monocytes # (Auto) 0.7x10^3/uL (0.0-1.1) Eosinophils # (Auto) 0.1x10^3/uL (0.0-0.7) Basophils # (Auto) 0.0x10^3/uL (0.0-0.2) Sodium Level 137mmol/L (136-145) Potassium Level 4.1mmol/L (3.5-5.1) Chloride Level 102mmol/L (98-107) Carbon Dioxide Level 24mmol/L (21-32) Anion Gap 11 (6-14) Blood Urea Nitrogen 13mg/dL (7-20) Creatinine 0.5mg/dL (0.6-1.0) Estimated GFR (Cockcroft-Gault) 124.6 Glucose Level 87mg/dL (70-99) Calcium Level 8.6mg/dL (8.5-10.1) Medications Active Scripts Medications Dose Route/Sig Days Date Category Losartan Potassium 25 Mg Tablet 25 Mg PO DAILY 01/31/16 Reported Gabapentin 600 Mg Tablet 600 Mg PO TID 01/31/16 Reported Ropinirole Hcl 4 Mg Tablet 4 Mg PO DAILY 12/19/16 Reported Lidoderm (Lidocaine) 700 Mg Adh..patch 1 Patch TP DAILY 01/31/16 Reported Sertraline Hcl 100 Mg Tablet 100 Mg PO DAILY 01/31/16 Reported Omeprazole 40 Mg Capsule.dr 1 Cap PO DAILY 01/31/16 Reported Hydrochlorothiazide Tablet (Hydrochlorothiazide) 25 Mg Tablet 1 Tab PO DAILY 01/31/16 Reported Potassium Chloride 8 Meq Capsule.er 8 Meq PO BID 01/31/16 Reported Alprazolam 0.25 Mg Tablet 0.25 Mg PO PRN Q6HRS PRN 01/31/16 Reported Percocet 10-325 Mg Tablet (Oxycodone/Acetaminophen) 1 Each Tablet 1 Tab PO Q4-6HRS 01/31/16 Reported Impression . 1. Abnormal CT of the chest revealing evidence of consolidation in the right upper lobe and multiple pulmonary nodules along with adenopathy. 2. Suspect gram-negative, possibly gram-positive pneumonia. 3. Cough, multifactorial in nature, suspect secondary to above and reflux. 4. Gastroesophageal reflux. 5. Tobacco dependence. 6. Anxiety/depression. 7. Acute exacerbation of COPD. Plan . Pt wants to go home home in am ok follow up in my office with repeat CT in 2 months 1. Continue current antibiotics. 2. Followup CT in 2 months. 3. DVT prophylaxis. 4. Bronchodilators. 5. The patient instructed on the importance to discontinue all caffeinated beverages. 6. Steroids. 7. Antireflux medication. MILA ARORA MD May 10, 2016 08:47
[2016-05-10] MEDS: LIDOCAINE (700MG/PATCH) PATCH. TP SCH (09:00)
[2016-05-10] MEDS: ENOXAPARIN 40 MG/0.4 ML SYRINGE. SQ SCH (09:00)
[2016-05-10] MEDS: POTASSIUM CHLORIDE 10 MEQ TABLET.ER. PO SCH (09:23)
[2016-05-10] MEDS: SERTRALINE 50 MG TABLET. PO SCH (09:23)
[2016-05-10] MEDS: GABAPENTIN 300 MG CAPSULE. PO SCH ×3 (09:23→20:43)
[2016-05-10] MEDS: rOPINIRole 1 MG TABLET. PO SCH ×2 (09:23→20:44)
[2016-05-10] MEDS: HYDROCHLOROTHIAZIDE 25 MG TABLET PO SCH (09:24)
[2016-05-10] MEDS: OXYCODONE/APAP 10/325 TABLET. PO SCH ×4 (09:24→20:53)
[2016-05-10] MEDS: LOSARTAN POTASSIUM 25 MG TABLET. PO SCH (09:24)
[2016-05-10] MEDS: PREDNISONE 10 MG TABLET PO SCH (09:24)
--- NOTE | 2016-05-10 10:29 | PDOC ---
PROGRESS NOTES Subjective Subjective feels better ,anxious to go home Objective Objective Vital Signs Date Time Temp Pulse Resp B/P Pulse Ox O2 Delivery O2 Flow Rate FiO2 05/10/16 09:24 Room Air 05/10/16 09:24 63 137/92 05/10/16 07:00 98.0 20 92 98.0 Intake and Output 05/10/16 07:00 Intake Total 1610 ml Balance 1610 ml Intake Oral 1610 ml # Voids 4 # Bowel Movements 1 Physical Exam Abdomen: Normal bowel sounds, Soft Heart: Regular rate, Normal S1 Extremities: No clubbing General: Alert HEENT: Atraumatic Lungs: Clear to auscultation MUSCULOSKELETAL: No deformity Neck: Supple Neuro: Normal speech Psych/Mental Status: Mental status NL Skin: No breakdown Diagnosis Problem List Problems Medical Problems: (1) Community acquired pneumonia Status: Acute Assessment Assessment Problems Medical Problems: (1) Community acquired pneumonia Status: Acute ASSESSMENT : 1. Community acquired pneumonia, present on admission. 2. Anxiety. 3. Depression. 4. Gastroesophageal reflux disease. 5. Questionable hypertension. PLAN: ct scan chest rt middle lobe pneumonia. wbc down to 10 . iv rocephin and po zithromax. home in 1-2 days blood c/s neg ,sputum pending Problems: Plan Plan of Care Problems Medical Problems: (1) Community acquired pneumonia Status: Acute Comment Review of Relevant I have reviewed the following items yaima (where applicable) has been applied. Labs Laboratory Tests Test 05/10/16 06:20 White Blood Count 9.3x10^3/uL (4.0-11.0) Red Blood Count 4.16x10^6/uL (3.50-5.40) Hemoglobin 13.2g/dL (12.0-15.5) Hematocrit 40.2% (36.0-47.0) Mean Corpuscular Volume 97fL (79-100) Mean Corpuscular Hemoglobin 32pg (25-35) Mean Corpuscular Hemoglobin Concent 33g/dL (31-37) Red Cell Distribution Width 13.9% (11.5-14.5) Platelet Count 217x10^3/uL (140-400) Neutrophils (%) (Auto) 75% (31-73) Lymphocytes (%) (Auto) 16% (24-48) Monocytes (%) (Auto) 8% (0-9) Eosinophils (%) (Auto) 1% (0-3) Basophils (%) (Auto) 0% (0-3) Neutrophils # (Auto) 7.0x10^3uL (1.8-7.7) Lymphocytes # (Auto) 1.5x10^3/uL (1.0-4.8) Monocytes # (Auto) 0.7x10^3/uL (0.0-1.1) Eosinophils # (Auto) 0.1x10^3/uL (0.0-0.7) Basophils # (Auto) 0.0x10^3/uL (0.0-0.2) Sodium Level 137mmol/L (136-145) Potassium Level 4.1mmol/L (3.5-5.1) Chloride Level 102mmol/L (98-107) Carbon Dioxide Level 24mmol/L (21-32) Anion Gap 11 (6-14) Blood Urea Nitrogen 13mg/dL (7-20) Creatinine 0.5mg/dL (0.6-1.0) Estimated GFR (Cockcroft-Gault) 124.6 Glucose Level 87mg/dL (70-99) Calcium Level 8.6mg/dL (8.5-10.1) Microbiology 05/08/16 Blood Culture - Preliminary, Resulted NO GROWTH AFTER 1 DAY Medications Current Medications Alprazolam (Xanax) 0.25 mg PRN Q6HRS PRN PO ANXIETY / AGITATION Last administered on 05/10/16 04:32; Start 05/09/16 at 10:30 Azithromycin (Zithromax) 250 mg HS PO Last administered on 05/09/16 21:21; Start 05/09/16 at 21:00 Ceftriaxone Sodium/Sodium Chloride (Rocephin/Iv Sodium Chloride 0.9% 50ml) 50 ml @ 100 mls/hr HS IV Last administered on 05/09/16 21:21; Start 05/09/16 at 21:00 Gabapentin (Neurontin) 600 mg TID PO Last administered on 05/10/16 09:23; Start 05/09/16 at 14:00 Hydrochlorothiazide (Hydrodiuril) 25 mg DAILY PO Last administered on 09:24; Start 05/10/16 at 09:00 Lidocaine (Lidoderm) 1 patch DAILY TP Last administered on 05/09/16 11:49; Start 05/09/16 at 11:00 Losartan Potassium (Cozaar) 25 mg DAILY PO Last administered on 05/10/16 09:24 ; Start 05/09/16 at 11:00 Oxycodone/ Acetaminophen (Percocet 10/325) 1 tab QID PO Last administered on 09:24; Start 05/09/16 at 13:00 Pantoprazole Sodium (Protonix) 40 mg DAILYAC PO Last administered on 05/10/16 05:24; Start 05/09/16 at 11:00 Potassium Chloride (Klor-Con) 10 meq DAILYWBKFT PO Last administered on 09:23; Start 05/10/16 at 08:00 Prednisone (Prednisone) 30 mg DAILY PO Last administered on 05/10/16 09:24; Start 05/10/16 at 09:00 Ropinirole HCl (Requip) 4 mg BID PO Last administered on 05/10/16 09:23; Start 05/09/16 at 21:00 Ropinirole HCl (Requip) 4 mg DAILY PO Last administered on 05/09/16 11:39; Start 05/09/16 at 11:00; Stop 05/09/16 at 17:49; Status DC Sertraline HCl (Zoloft) 100 mg DAILY PO Last administered on 05/10/16 09:23; Start 05/09/16 at 11:00 Vitals/I & O Vital Sign - Last 24 Hours 05/09/16 05/09/16 05/09/16 05/09/16 11:24 11:38 11:39 15:09 Temp 98.4 97.7 98.4 97.7 Pulse 62 62 78 Resp 18 18 B/P 163/76 163/76 125/69 Pulse Ox 94 96 93 O2 Delivery Room Air Room Air Room Air 05/09/16 05/09/16 05/09/16 05/09/16 19:00 20:00 21:21 23:00 Temp 97.5 97.9 97.5 97.9 Pulse 63 65 Resp 18 18 18 B/P 132/71 124/85 Pulse Ox 90 90 95 O2 Delivery Room Air Room Air Room Air Room Air 05/09/16 05/10/16 05/10/16 05/10/16 23:18 03:00 04:32 05:38 Temp 97.8 97.8 Pulse 71 Resp 18 18 18 B/P 144/89 Pulse Ox 90 90 90 90 O2 Delivery Room Air Room Air Room Air Room Air 05/10/16 05/10/16 05/10/16 05/10/16 07:00 08:00 09:24 09:24 Temp 98.0 98.0 Pulse 63 63 Resp 20 B/P 137/92 137/92 Pulse Ox 92 O2 Delivery Room Air Room Air Room Air Intake and Output 05/09/16 05/09/16 05/10/16 15:00 23:00 07:00 Intake Total 120 ml 650 ml 840 ml Balance 120 ml 650 ml 840 ml ROBINSON BOLIVAR MD May 10, 2016 10:29
[2016-05-10 11:00] VITALS: BP 140/85
[2016-05-10 15:00] VITALS: BP 150/95
[2016-05-10 19:00] VITALS: BP 119/70
[2016-05-10] MEDS: CEFTRIAXONE SODIUM 1 GM in IV NORMAL SALINE 50ML 50 ML IV SCH (20:41)
[2016-05-10] MEDS: AZITHROMYCIN 250 MG TABLET PO SCH (20:44)
[2016-05-10 23:00] VITALS: BP 122/74
[2016-05-11] MEDS: PANTOPRAZOLE 40 MG TABLET. PO SCH (04:22)
[2016-05-11] MEDS: OXYCODONE/APAP 10/325 TABLET. PO SCH ×2 (04:22→08:56)
[2016-05-11 04:54] LABS: BASO % 0 % (0-3); EOS % 1 % (0-3); HEMATOCRIT 43.9 % (36.0-47.0); HEMOGLOBIN 14.3 g/dL (12.0-15.5); LYMPH # 2.6 x10^3/uL (1.0-4.8); LYMPH % 23 % (24-48); MEAN CORPUSCULAR HEMOGLOBIN 31 pg (25-35); MEAN CORPUSCULAR HGB CONC 33 g/dL (31-37); MEAN CORPUSCULAR VOLUME 96 fL (79-100); MONO % 8 % (0-9); NEUT % 68 % (31-73); RED BLOOD COUNT 4.56 x10^6/uL (3.50-5.40)
[2016-05-11 05:32] LABS: CALCIUM 8.8 mg/dL (8.5-10.1); CREATININE 0.7 mg/dL (0.6-1.0); GFR 84.5; POTASSIUM 4.1 mmol/L (3.5-5.1)
[2016-05-11] MEDS ORDERED: ACETAMINOPHEN 325 MG TABLET. PO PRN (05:38)
[2016-05-11] MEDS ORDERED: ONDANSETRON PF 4 MG/2 ML VIAL. IV PRN (05:38)
[2016-05-11 07:00] VITALS: BP 151/89
[2016-05-11 07:20] LABS: PLATELET COUNT 254 x10^3/uL (140-400)
[2016-05-11] MEDS: PREDNISONE 10 MG TABLET PO SCH (08:41)
[2016-05-11] MEDS: POTASSIUM CHLORIDE 10 MEQ TABLET.ER. PO SCH (08:42)
[2016-05-11] MEDS: rOPINIRole 1 MG TABLET. PO SCH (08:42)
[2016-05-11] MEDS: HYDROCHLOROTHIAZIDE 25 MG TABLET PO SCH (08:42)
[2016-05-11] MEDS: GABAPENTIN 300 MG CAPSULE. PO SCH (08:43)
[2016-05-11] MEDS: SERTRALINE 50 MG TABLET. PO SCH (08:46)
[2016-05-11 08:50] VITALS: BP 151/89
[2016-05-11] MEDS: LOSARTAN POTASSIUM 25 MG TABLET. PO SCH (08:50)
[2016-05-11] MEDS: LIDOCAINE (700MG/PATCH) PATCH. TP SCH (08:50)
[2016-05-11] MEDS ORDERED: ENOXAPARIN 40 MG/0.4 ML SYRINGE. SQ SCH (09:00)
--- NOTE | 2016-05-11 09:10 | PDOC ---
PULMONARY PROGRESS NOTES Subjective pt feels better Vitals Vital Signs Date Time Temp Pulse Resp B/P Pulse Ox O2 Delivery O2 Flow Rate FiO2 05/11/16 08:56 20 92 Room Air 05/11/16 08:50 68 151/89 05/11/16 07:00 98.2 98.2 ROS: No Nausea, No Chest Pain, No Abdominal Pain, No Increase Cough General: Alert Lungs: Clear Cardiovascular: S1, S2 Abdomen: Soft, Non-tender Neuro Exam: Alert Extremities: No Edema Skin: Warm Labs Laboratory Tests Test 05/10/16 06:20 05/11/16 04:25 White Blood Count 9.3x10^3/uL (4.0-11.0) 11.0x10^3/uL (4.0-11.0) Red Blood Count 4.16x10^6/uL (3.50-5.40) 4.56x10^6/uL (3.50-5.40) Hemoglobin 13.2g/dL (12.0-15.5) 14.3g/dL (12.0-15.5) Hematocrit 40.2% (36.0-47.0) 43.9% (36.0-47.0) Mean Corpuscular Volume 97fL (79-100) 96fL (79-100) Mean Corpuscular Hemoglobin 32pg (25-35) 31pg (25-35) Mean Corpuscular Hemoglobin Concent 33g/dL (31-37) 33g/dL (31-37) Red Cell Distribution Width 13.9% (11.5-14.5) 14.0% (11.5-14.5) Platelet Count 217x10^3/uL (140-400) 254x10^3/uL (140-400) Neutrophils (%) (Auto) 75% (31-73) 68% (31-73) Lymphocytes (%) (Auto) 16% (24-48) 23% (24-48) Monocytes (%) (Auto) 8% (0-9) 8% (0-9) Eosinophils (%) (Auto) 1% (0-3) 1% (0-3) Basophils (%) (Auto) 0% (0-3) 0% (0-3) Neutrophils # (Auto) 7.0x10^3uL (1.8-7.7) 7.5x10^3uL (1.8-7.7) Lymphocytes # (Auto) 1.5x10^3/uL (1.0-4.8) 2.6x10^3/uL (1.0-4.8) Monocytes # (Auto) 0.7x10^3/uL (0.0-1.1) 0.9x10^3/uL (0.0-1.1) Eosinophils # (Auto) 0.1x10^3/uL (0.0-0.7) 0.1x10^3/uL (0.0-0.7) Basophils # (Auto) 0.0x10^3/uL (0.0-0.2) 0.0x10^3/uL (0.0-0.2) Sodium Level 137mmol/L (136-145) 140mmol/L (136-145) Potassium Level 4.1mmol/L (3.5-5.1) 4.1mmol/L (3.5-5.1) Chloride Level 102mmol/L (98-107) 102mmol/L (98-107) Carbon Dioxide Level 24mmol/L (21-32) 29mmol/L (21-32) Anion Gap 11 (6-14) 9 (6-14) Blood Urea Nitrogen 13mg/dL (7-20) 13mg/dL (7-20) Creatinine 0.5mg/dL (0.6-1.0) 0.7mg/dL (0.6-1.0) Estimated GFR (Cockcroft-Gault) 124.6 84.5 Glucose Level 87mg/dL (70-99) 109mg/dL (70-99) Calcium Level 8.6mg/dL (8.5-10.1) 8.8mg/dL (8.5-10.1) Laboratory Tests Test 05/11/16 04:25 White Blood Count 11.0x10^3/uL (4.0-11.0) Red Blood Count 4.56x10^6/uL (3.50-5.40) Hemoglobin 14.3g/dL (12.0-15.5) Hematocrit 43.9% (36.0-47.0) Mean Corpuscular Volume 96fL (79-100) Mean Corpuscular Hemoglobin 31pg (25-35) Mean Corpuscular Hemoglobin Concent 33g/dL (31-37) Red Cell Distribution Width 14.0% (11.5-14.5) Platelet Count 254x10^3/uL (140-400) Neutrophils (%) (Auto) 68% (31-73) Lymphocytes (%) (Auto) 23% (24-48) Monocytes (%) (Auto) 8% (0-9) Eosinophils (%) (Auto) 1% (0-3) Basophils (%) (Auto) 0% (0-3) Neutrophils # (Auto) 7.5x10^3uL (1.8-7.7) Lymphocytes # (Auto) 2.6x10^3/uL (1.0-4.8) Monocytes # (Auto) 0.9x10^3/uL (0.0-1.1) Eosinophils # (Auto) 0.1x10^3/uL (0.0-0.7) Basophils # (Auto) 0.0x10^3/uL (0.0-0.2) Sodium Level 140mmol/L (136-145) Potassium Level 4.1mmol/L (3.5-5.1) Chloride Level 102mmol/L (98-107) Carbon Dioxide Level 29mmol/L (21-32) Anion Gap 9 (6-14) Blood Urea Nitrogen 13mg/dL (7-20) Creatinine 0.7mg/dL (0.6-1.0) Estimated GFR (Cockcroft-Gault) 84.5 Glucose Level 109mg/dL (70-99) Calcium Level 8.8mg/dL (8.5-10.1) Medications Active Scripts Medications Dose Route/Sig Days Date Category Losartan Potassium 25 Mg Tablet 25 Mg PO DAILY 01/31/16 Reported Gabapentin 600 Mg Tablet 600 Mg PO TID 01/31/16 Reported Ropinirole Hcl 4 Mg Tablet 4 Mg PO DAILY 01/31/16 Reported Lidoderm (Lidocaine) 700 Mg Adh..patch 1 Patch TP DAILY 01/31/16 Reported Sertraline Hcl 100 Mg Tablet 100 Mg PO DAILY 01/31/16 Reported Omeprazole 40 Mg Capsule.dr 1 Cap PO DAILY 01/31/16 Reported Hydrochlorothiazide Tablet (Hydrochlorothiazide) 25 Mg Tablet 1 Tab PO DAILY 01/31/16 Reported Potassium Chloride 8 Meq Capsule.er 8 Meq PO BID 01/31/16 Reported Alprazolam 0.25 Mg Tablet 0.25 Mg PO PRN Q6HRS PRN 01/31/16 Reported Percocet 10-325 Mg Tablet (Oxycodone/Acetaminophen) 1 Each Tablet 1 Tab PO Q4-6HRS 01/31/16 Reported Impression . 1. Abnormal CT of the chest revealing evidence of consolidation in the right upper lobe and multiple pulmonary nodules along with adenopathy. 2. Suspect gram-negative, possibly gram-positive pneumonia. 3. Cough, multifactorial in nature, suspect secondary to above and reflux. 4. Gastroesophageal reflux. 5. Tobacco dependence. 6. Anxiety/depression. 7. Acute exacerbation of COPD. Plan . d/c home today follow up in my office with repeat CT in 2 months 1. Continue current antibiotics. 2. Followup CT in 2 months. 3. DVT prophylaxis. 4. Bronchodilators. 5. The patient instructed on the importance to discontinue all caffeinated beverages. 6. Steroids. 7. Antireflux medication. MILA ARORA MD May 11, 2016 09:10
--- NOTE | 2016-05-11 10:25 | PDOC ---
PROGRESS NOTES Subjective Subjective feels good ,ready to go home Objective Objective Vital Signs Date Time Temp Pulse Resp B/P Pulse Ox O2 Delivery O2 Flow Rate FiO2 05/11/16 08:56 20 92 Room Air 05/11/16 08:50 68 151/89 05/11/16 07:00 98.2 98.2 Intake and Output 05/11/16 07:00 Intake Total 1550 ml Balance 1550 ml Intake Oral 1550 ml # Voids 7 Physical Exam Abdomen: Normal bowel sounds, Soft Heart: Regular rate, Normal S1 Extremities: No clubbing General: Alert HEENT: Atraumatic Lungs: Clear to auscultation MUSCULOSKELETAL: No deformity Neck: Supple Neuro: Normal speech Psych/Mental Status: Mental status NL Skin: No breakdown Diagnosis Problem List Problems Medical Problems: (1) Community acquired pneumonia Status: Acute Assessment Assessment Problems Medical Problems: (1) Community acquired pneumonia Status: Acute ASSESSMENT : 1. Community acquired pneumonia, present on admission. 2. Anxiety. 3. Depression. 4. Gastroesophageal reflux disease. 5. Questionable hypertension. PLAN:d/c home on Augmentin for 10 days. repeat cxr in [address] scan chest rt middle lobe pneumonia. wbc down to 10 . d/c iv rocephin and po zithromax. d/c home today blood c/s neg ,sputum pending Problems: Plan Plan of Care Problems Medical Problems: (1) Community acquired pneumonia Status: Acute Comment Review of Relevant I have reviewed the following items yaima (where applicable) has been applied. Labs Laboratory Tests Test 05/11/16 04:25 White Blood Count 11.0x10^3/uL (4.0-11.0) Red Blood Count 4.56x10^6/uL (3.50-5.40) Hemoglobin 14.3g/dL (12.0-15.5) Hematocrit 43.9% (36.0-47.0) Mean Corpuscular Volume 96fL (79-100) Mean Corpuscular Hemoglobin 31pg (25-35) Mean Corpuscular Hemoglobin Concent 33g/dL (31-37) Red Cell Distribution Width 14.0% (11.5-14.5) Platelet Count 254x10^3/uL (140-400) Neutrophils (%) (Auto) 68% (31-73) Lymphocytes (%) (Auto) 23% (24-48) Monocytes (%) (Auto) 8% (0-9) Eosinophils (%) (Auto) 1% (0-3) Basophils (%) (Auto) 0% (0-3) Neutrophils # (Auto) 7.5x10^3uL (1.8-7.7) Lymphocytes # (Auto) 2.6x10^3/uL (1.0-4.8) Monocytes # (Auto) 0.9x10^3/uL (0.0-1.1) Eosinophils # (Auto) 0.1x10^3/uL (0.0-0.7) Basophils # (Auto) 0.0x10^3/uL (0.0-0.2) Sodium Level 140mmol/L (136-145) Potassium Level 4.1mmol/L (3.5-5.1) Chloride Level 102mmol/L (98-107) Carbon Dioxide Level 29mmol/L (21-32) Anion Gap 9 (6-14) Blood Urea Nitrogen 13mg/dL (7-20) Creatinine 0.7mg/dL (0.6-1.0) Estimated GFR (Cockcroft-Gault) 84.5 Glucose Level 109mg/dL (70-99) Calcium Level 8.8mg/dL (8.5-10.1) Microbiology 05/09/16 Blood Culture - Preliminary, Resulted NO GROWTH AFTER 1 DAY Medications Current Medications Acetaminophen (Tylenol) 325 mg PRN Q6HRS PRN PO MILD PAIN / TEMP; Start at 05:38 Enoxaparin Sodium (Lovenox 40mg Syringe) 40 mg DAILY SQ Last administered on t 08:47; Start 05/11/16 at 09:00 Ondansetron HCl (Zofran) 4 mg PRN Q8HRS PRN IV NAUSEA/VOMITING; Start 05/11/16 at 05:38 Vitals/I & O Vital Sign - Last 24 Hours 05/10/16 05/10/16 05/10/16 05/10/16 11:00 13:06 15:00 16:32 Temp 97.7 97.6 97.7 97.6 Pulse 73 63 Resp 19 19 B/P 140/85 150/95 Pulse Ox 92 94 94 O2 Delivery Room Air Room Air Room Air Room Air 05/10/16 05/10/16 05/10/16 05/10/16 18:50 19:00 20:00 20:53 Temp 97.4 97.4 Pulse 64 Resp 20 B/P 119/70 Pulse Ox 94 93 O2 Delivery Room Air Room Air Room Air 05/10/16 05/11/16 05/11/16 05/11/16 23:00 04:22 05:22 07:00 Temp 97.9 98.2 97.9 98.2 Pulse 65 68 Resp 20 19 B/P 122/74 151/89 Pulse Ox 92 92 O2 Delivery Room Air Room Air Room Air Room Air 05/11/16 05/11/16 08:50 08:56 Pulse 68 Resp 20 B/P 151/89 Pulse Ox 92 O2 Delivery Room Air Intake and Output 05/10/16 05/10/16 05/11/16 15:00 23:00 07:00 Intake Total 500 ml 1050 ml Balance 500 ml 1050 ml ROBINSON BOLIVAR MD May 11, 2016 10:25
[2016-05-11] MEDS ORDERED: AMOX1TAB58 PO (10:27)
[2016-05-11] MEDS ORDERED: VENTOLIN HFA18 GM INH (10:27)
--- NOTE | 2016-05-13 12:31 | PDOC ---
Provider Note Provider Note Discharge summary dictated. #[id number] ROBINSON BOLIVAR MD May 13, 2016 12:31
--- NOTE | 2016-05-13 18:48 | DS ---
DATE OF DISCHARGE: 05/11/2016 REASON FOR ADMISSION TO THE HOSPITAL: Pneumonia, community acquired. CONSULTATIONS: Jacinta Santos MD PROCEDURES DONE: CT chest. COMPLICATIONS NOTED: None. HOSPITAL COURSE: The patient is a 65-year-old female with history of chronic COPD, smoker, comes in with fever, cough and found to have a pneumonia and CT chest shows a right middle lobe consolidation. The patient was seen by Dr. Santos, was given Rocephin and Zithromax initially in the hospital and she was feeling better, white count was 30,000, came down to 11,000. FINAL DIAGNOSES: 1. Community acquired Pneumonia. 2. Chronic obstructive pulmonary disease. 3. Tobacco addiction . 4. Other chronic conditions, hypertension, hyperlipidemia and chronic pain syndrome. Discharged home on Augmentin 500mg bidx10 days. Follow up chest x-ray in [address] scan in 2 months. The patient had a flu shot and a pneumonia shot. Smoking counseling was done. ROBINSON BOLIVAR MD DR: KALEN/nts JOB#: [id number] / [id number] LORI
== END 2016-05-11 12:30 | disposition home or self-care (01) | DRG 190 ==
LOC: ER 18:46 → 5 NORTH 20:30
PROVIDERS: ADMIT Internal Medicine; ATTEND Internal Medicine
DX: J44.0 Chronic obstructive pulmonary disease with (acute) lower respiratory infection (principal); J18.9 Pneumonia, unspecified organism; J44.1 Chronic obstructive pulmonary disease with (acute) exacerbation; K21.9 Gastro-esophageal reflux disease without esophagitis; I10 Essential (primary) hypertension; F17.200 Nicotine dependence, unspecified, uncomplicated; F32.9 Major depressive disorder, single episode, unspecified; F41.9 Anxiety disorder, unspecified; G25.81 Restless legs syndrome; R59.9 Enlarged lymph nodes, unspecified; Z90.49 Acquired absence of other specified parts of digestive tract; Z90.710 Acquired absence of both cervix and uterus
CPT/HCPCS: 36415; 71010; 71250; 80048; 80053; 83605; 85007; 85027; 87040; 87205; 94250; 94760; 96374; 96375; J0456; J0690; J0696; J1650; J3010; J7030; J7512; Q0144; 99285-25

== ENCOUNTER → 2016-05-22 | Outpatient (CLI) | payer BC ==
[2016-05-11 08:50] VITALS: BP 151/89
[~2016-05-22] MED LIST changes: +AMOX1TAB58 PO; +VENTOLIN HFA18 GM INH
--- NOTE | 2016-05-22 15:49 | RAD ---
Chest, 2 views, 05/22/2016: History: Recent pneumonia Comparison is made to a study from 05/08/2016. The heart is within normal limits in size. Dense pulmonary consolidation, presumably due to pneumonia, evident in the right lower chest on the previous study has resolved. There are persistent diffuse reticulonodular interstitial type opacities in both lungs. There is no evidence of pleural fluid. There is a mild thoracic scoliosis. Postsurgical changes are noted in the lower cervical spine. IMPRESSION: 1. Dense right lower chest consolidation has resolved. 2. Persistent bilateral reticulonodular opacities may represent chronic lung disease. CT follow-up is suggested.
== END | disposition home or self-care (01) ==
LOC: RAD 10:13
PROVIDERS: ATTEND Internal Medicine
DX: J18.9 Pneumonia, unspecified organism (principal)
CPT/HCPCS: 71020

== ENCOUNTER 2017-07-13 15:26 | Inpatient (IN) | payer OTHER, BC ==
[2017-07-13 16:31] LABS: ADD MAN DIFF? NO
[2017-07-13 16:34] LABS: BASO # 0.1 x10^3/uL (0.0-0.2); BASO % 1 % (0-3); EOS # 0.3 x10^3/uL (0.0-0.7); EOS % 3 % (0-3); HEMATOCRIT 36.2 % (36.0-47.0); HEMOGLOBIN 11.4 g/dL (12.0-15.5); LYMPH # 2.6 x10^3/uL (1.0-4.8); LYMPH % 25 % (24-48); MEAN CORPUSCULAR HEMOGLOBIN 26 pg (25-35); MEAN CORPUSCULAR HGB CONC 31 g/dL (31-37); MEAN CORPUSCULAR VOLUME 82 fL (79-100); MONO # 0.6 x10^3/uL (0.0-1.1); MONO % 6 % (0-9); NEUT # 6.9 x10^3uL (1.8-7.7); NEUT % 66 % (31-73); PLATELET COUNT 427 x10^3/uL (140-400); RED BLOOD COUNT 4.42 x10^6/uL (3.50-5.40); WHITE BLOOD COUNT 10.5 x10^3/uL (4.0-11.0)
[2017-07-13 16:38] LABS: BILIRUBIN,URINE NEGATIVE (NEG); CLARITY,URINE CLEAR; COLOR,URINE YELLOW; GLUCOSE,URINE NEGATIVE (NEG); NITRITE,URINE NEGATIVE (NEG); PH,URINE 6.5; PROTEIN,URINE 100 mg/dL (NEG-TRACE)
[2017-07-13 16:50] LABS: BACTERIA,URINE FEW /HPF (0-FEW); HYALINE CASTS, URINE MODERATE /HPF; RBC,URINE 0 /HPF (0-2); SQUAMOUS EPITHELIAL CELL,UR MOD /LPF
[2017-07-13] MEDS: IPRATRPIUM/ALBUTEROL 0.5/2.5MG 3 ML NEBU. NEB ×2 (16:51→21:00)
[2017-07-13 16:52] LABS: ALBUMIN 2.7 g/dL (3.4-5.0); ALK PHOS 96 U/L (46-116); ALT (SGPT) 15 U/L (14-59); ANION GAP 6 (6-14); AST (SGOT) 14 U/L (15-37); BLOOD UREA NITROGEN 11 mg/dL (7-20); CARBON DIOXIDE 34 mmol/L (21-32); CHLORIDE 99 mmol/L (98-107); DIRECT BILIRUBIN 0.2 mg/dL (0.0-0.2); GFR 55.8; GLUCOSE 100 mg/dL (70-99); LIPASE 90 U/L (73-393); SODIUM 139 mmol/L (136-145); TOTAL BILIRUBIN 0.4 mg/dL (0.2-1.0); TOTAL PROTEIN 6.6 g/dL (6.4-8.2)
[2017-07-13 16:54] LABS: LACTIC ACID 0.7 mmol/L (0.4-2.0)
[2017-07-13 16:56] LABS: POTASSIUM 2.8 mmol/L (3.5-5.1)
[2017-07-13 16:56] LABS: TROPONINI 0.067 ng/mL (0.000-0.055)
[2017-07-13] MEDS: IV NORMAL SALINE 1000ML BAG 1,000 ML IV (17:19)
[2017-07-13] MEDS ORDERED: ONDANSETRON PF 4 MG/2 ML VIAL. IV (17:30)
[2017-07-13] MEDS: IOHEXOL 300 MG/ML 100ML VIAL. IV (17:31)
[2017-07-13] MEDS ORDERED: CONTRAST GIVEN. MC (17:45)
[2017-07-13] MEDS: POTASSIUM CL 40MEQ IN 0.9%NACL 1,000 ML IV (17:54)
[2017-07-13] MEDS: ASPIRIN CHEWABLE 81 MG TABLET. PO (18:01)
[2017-07-13] MEDS: MORPHINE SULFATE 4 MG/ML DISP.SYRIN. IV ×2 (20:25→23:09)
[2017-07-13 20:31] LABS: TROPONINI 0.067 ng/mL (0.000-0.055)
[2017-07-13] MEDS: hydrALAZINE 10 MG TABLET PO (21:10)
[2017-07-13] MEDS: POTASSIUM CHLORIDE 20 MEQ TABLET.ER. PO ×2 (21:10→22:06)
[2017-07-13] MEDS: methylPREDNISolone SOD SUCC PF 40 MG/ML VIAL. IV (21:11)
[2017-07-14 01:33] LABS: TROPONINI 0.066 ng/mL (0.000-0.055)
[2017-07-14] MEDS: hydrALAZINE 10 MG TABLET PO ×3 (02:21→22:59)
[2017-07-14 04:58] LABS: ADD MAN DIFF? NO
[2017-07-14 05:07] LABS: BARBITURATES NEG (NEG); BENZODIAZEPINES NEG (NEG); CANNABINOIDS NEG (NEG); COCAINE NEG (NEG); METHADONE NEG (NEG); OPIATES POS (NEG); PHENCYCLIDINE NEG (NEG)
[2017-07-14 05:14] LABS: AMPHETAMINE/METHAMPHETAMINE NEG (NEG)
[2017-07-14 05:15] LABS: ETHANOL, URINE NEG (NEG)
[2017-07-14 05:20] LABS: BASO # 0.1 x10^3/uL (0.0-0.2); BASO % 1 % (0-3); EOS # 0.3 x10^3/uL (0.0-0.7); EOS % 3 % (0-3); HEMATOCRIT 34.6 % (36.0-47.0); LYMPH # 2.7 x10^3/uL (1.0-4.8); LYMPH % 30 % (24-48); MEAN CORPUSCULAR HEMOGLOBIN 26 pg (25-35); MEAN CORPUSCULAR HGB CONC 32 g/dL (31-37); MEAN CORPUSCULAR VOLUME 82 fL (79-100); MONO # 0.6 x10^3/uL (0.0-1.1); MONO % 7 % (0-9); NEUT # 5.4 x10^3uL (1.8-7.7); NEUT % 60 % (31-73); PLATELET COUNT 400 x10^3/uL (140-400); RED CELL DISTRIBUTION WIDTH 17.9 % (11.5-14.5)
[2017-07-14] MEDS: IV NORMAL SALINE 1000ML BAG 1,000 ML IV ×2 (05:41→14:20)
[2017-07-14] MEDS ORDERED: DEXTROSE 50% 25 GM / 50ML DISP.SYRIN. IV (05:50)
[2017-07-14 05:54] LABS: POC GLUCOSE 129 mg/dL (70-99)
[2017-07-14 06:34] LABS: BLOOD UREA NITROGEN 9 mg/dL (7-20); CREATININE 0.7 mg/dL (0.6-1.0); GFR 84.2; GLUCOSE 126 mg/dL (70-99); SODIUM 143 mmol/L (136-145)
[2017-07-14 06:35] LABS: ANION GAP 6 (6-14); CARBON DIOXIDE 34 mmol/L (21-32); CHLORIDE 103 mmol/L (98-107); POTASSIUM 3.5 mmol/L (3.5-5.1)
[2017-07-14] MEDS: IPRATRPIUM/ALBUTEROL 0.5/2.5MG 3 ML NEBU. NEB ×4 (07:31→19:23)
[2017-07-14] MEDS: MORPHINE SULFATE 4 MG/ML DISP.SYRIN. IV ×2 (08:38→14:36)
[2017-07-14] MEDS: methylPREDNISolone SOD SUCC PF 40 MG/ML VIAL. IV ×2 (08:38→20:51)
[2017-07-14] MEDS: LIDOCAINE (700MG/PATCH) PATCH. TD (10:14)
[2017-07-14] MEDS: LOSARTAN POTASSIUM 50 MG TABLET. PO (10:15)
[2017-07-14] MEDS: AZITHROMYCIN 250 MG TABLET. PO (10:15)
[2017-07-14] MEDS: rOPINIRole 1 MG TABLET. PO (10:16)
[2017-07-14] MEDS: ENOXAPARIN 40 MG/0.4 ML SYRINGE. SQ (10:16)
[2017-07-14] MEDS: PANTOPRAZOLE 40 MG TABLET.DR. PO (10:17)
[2017-07-14] MEDS: POTASSIUM CHLORIDE 10 MEQ TABLET.ER. PO ×2 (10:17→17:51)
[2017-07-14] MEDS: POTASSIUM CHLORIDE 20 MEQ TABLET.ER. PO (10:17)
[2017-07-14] MEDS: hydroCHLOROthiazide 25 MG TABLET PO (10:18)
[2017-07-14] MEDS: oxyCODONE/APAP 10/325 1 TAB TABLET PO ×3 (10:18→20:22)
[2017-07-14] MEDS: SERTRALINE 50 MG TABLET. PO (10:19)
[2017-07-14 10:57] LABS: SEDIMENTATION RATE 10 (0-25)
[2017-07-14] MEDS ORDERED: ALBUTEROL SULFATE 2.5 MG/3 ML NEBU. NEB (12:00)
[2017-07-14] MEDS ORDERED: NON FORMULARY ITEM (Albuterol Sulfate (Ventolin Hfa Inhaler) 2 PUFF) INH (13:00)
[2017-07-14] MEDS: GABAPENTIN 300 MG CAPSULE. PO ×2 (14:19→20:21)
[2017-07-14] MEDS: cefTRIAXone IV Push 1 GM VIAL. IVP (17:51)
[2017-07-14] MEDS: PATCH REMOVAL. MC (20:59)
[2017-07-14] MEDS: ALPRAZolam 0.25 MG TABLET PO (22:59)
[2017-07-15 05:53] LABS: TROPONINI 0.062 ng/mL (0.000-0.055)
[2017-07-15 05:55] LABS: ANION GAP 5 (6-14); BLOOD UREA NITROGEN 12 mg/dL (7-20); CALCIUM 8.8 mg/dL (8.5-10.1); CARBON DIOXIDE 33 mmol/L (21-32); CHLORIDE 98 mmol/L (98-107); CHOLESTEROL 116 mg/dL (0-200); CREATININE 0.8 mg/dL (0.6-1.0); GFR 72.2; GLUCOSE 170 mg/dL (70-99); HDLC 34 mg/dL (40-60); LDLC 70 mg/dL (0-100); NON-HDL CHOLESTEROL 82 mg/dL (0-129); POTASSIUM 3.1 mmol/L (3.5-5.1); SODIUM 136 mmol/L (136-145); TRIGLYCERIDES 62 mg/dL (0-150); VLDLC 12 mg/dL (0-40)
[2017-07-15 05:56] LABS: CHOLESTEROL/HDL RATIO 3.4
[2017-07-15] MEDS: PANTOPRAZOLE 40 MG TABLET.DR. PO (06:03)
[2017-07-15] MEDS: oxyCODONE/APAP 10/325 1 TAB TABLET PO ×4 (06:03→22:57)
[2017-07-15 06:13] LABS: THYROID STIM HORMONE (TSH) 0.602 uIU/mL (0.358-3.74)
[2017-07-15] MEDS: IPRATRPIUM/ALBUTEROL 0.5/2.5MG 3 ML NEBU. NEB ×3 (07:53→16:31)
[2017-07-15] MEDS: POTASSIUM CHLORIDE 10 MEQ TABLET.ER. PO ×2 (08:35→17:09)
[2017-07-15] MEDS: SERTRALINE 50 MG TABLET. PO (08:36)
[2017-07-15] MEDS: AZITHROMYCIN 250 MG TABLET. PO (08:36)
[2017-07-15] MEDS: LIDOCAINE (700MG/PATCH) PATCH. TD (08:36)
[2017-07-15] MEDS: methylPREDNISolone SOD SUCC PF 40 MG/ML VIAL. IV ×2 (08:37→20:25)
[2017-07-15] MEDS: ENOXAPARIN 40 MG/0.4 ML SYRINGE. SQ (08:37)
[2017-07-15] MEDS: hydroCHLOROthiazide 25 MG TABLET PO (08:38)
[2017-07-15] MEDS: rOPINIRole 1 MG TABLET. PO (08:38)
[2017-07-15] MEDS: GABAPENTIN 300 MG CAPSULE. PO ×3 (08:38→20:25)
[2017-07-15] MEDS: LOSARTAN POTASSIUM 50 MG TABLET. PO (08:39)
[2017-07-15] MEDS: POTASSIUM CHLORIDE 20 MEQ TABLET.ER. PO ×2 (10:32→12:39)
[2017-07-15] MEDS: amLODIPine BESYLATE 5 MG TABLET PO (12:40)
[2017-07-15] MEDS: hydrALAZINE 10 MG TABLET PO (12:40)
[2017-07-15] MEDS: cefTRIAXone IV Push 1 GM VIAL. IVP (17:10)
[2017-07-15] MEDS: LACTOBACILLUS RHAMNOSUS GG 1 CAPSULE. PO (20:25)
[2017-07-15] MEDS: PATCH REMOVAL. MC (20:26)
[2017-07-16] MEDS: hydrALAZINE 10 MG TABLET PO (03:46)
[2017-07-16] MEDS: ALPRAZolam 0.25 MG TABLET PO (03:46)
[2017-07-16] MEDS: IPRATRPIUM/ALBUTEROL 0.5/2.5MG 3 ML NEBU. NEB (07:03)
[2017-07-16 07:58] LABS: ANION GAP 9 (6-14); BLOOD UREA NITROGEN 13 mg/dL (7-20); CALCIUM 9.1 mg/dL (8.5-10.1); CARBON DIOXIDE 33 mmol/L (21-32); CHLORIDE 96 mmol/L (98-107); CREATININE 0.6 mg/dL (0.6-1.0); GFR 100.6; GLUCOSE 111 mg/dL (70-99); POTASSIUM 3.8 mmol/L (3.5-5.1); SODIUM 138 mmol/L (136-145)
[2017-07-16] MEDS: oxyCODONE/APAP 10/325 1 TAB TABLET PO (09:15)
[2017-07-16] MEDS: LIDOCAINE (700MG/PATCH) PATCH. TD (09:16)
[2017-07-16] MEDS: LOSARTAN POTASSIUM 50 MG TABLET. PO (09:17)
[2017-07-16] MEDS: rOPINIRole 1 MG TABLET. PO (09:19)
[2017-07-16] MEDS: hydroCHLOROthiazide 25 MG TABLET PO (09:19)
[2017-07-16] MEDS: POTASSIUM CHLORIDE 10 MEQ TABLET.ER. PO (09:20)
[2017-07-16] MEDS: GABAPENTIN 300 MG CAPSULE. PO (09:20)
[2017-07-16] MEDS: AZITHROMYCIN 250 MG TABLET. PO (09:21)
[2017-07-16] MEDS: SERTRALINE 50 MG TABLET. PO (09:21)
[2017-07-16] MEDS: PANTOPRAZOLE 40 MG TABLET.DR. PO (09:21)
[2017-07-16] MEDS: LACTOBACILLUS RHAMNOSUS GG 1 CAPSULE. PO (09:21)
[2017-07-16] MEDS: amLODIPine BESYLATE 5 MG TABLET PO (09:22)
[2017-07-16] MEDS: methylPREDNISolone SOD SUCC PF 40 MG/ML VIAL. IV (09:22)
[2017-07-16] MEDS: ENOXAPARIN 40 MG/0.4 ML SYRINGE. SQ (09:23)
== END 2017-07-16 12:15 | disposition home or self-care (01) | DRG 177 ==
LOC: ER 15:26 → 5 NORTH 17:18
DX: J15.6 Pneumonia due to other Gram-negative bacteria (principal); J96.01 Acute respiratory failure with hypoxia; I24.8 Other forms of acute ischemic heart disease; J44.9 Chronic obstructive pulmonary disease, unspecified; D86.9 Sarcoidosis, unspecified; E78.5 Hyperlipidemia, unspecified; F17.200 Nicotine dependence, unspecified, uncomplicated; G25.81 Restless legs syndrome; I10 Essential (primary) hypertension; K21.9 Gastro-esophageal reflux disease without esophagitis; Z82.49 Family history of ischemic heart disease and other diseases of the circulatory system; Z82.5 Family history of asthma and other chronic lower respiratory diseases; Z90.49 Acquired absence of other specified parts of digestive tract; Z90.710 Acquired absence of both cervix and uterus; F32.9 Major depressive disorder, single episode, unspecified; F41.9 Anxiety disorder, unspecified; G89.29 Other chronic pain; M19.90 Unspecified osteoarthritis, unspecified site
CPT/HCPCS: 36415; 71046; 71275; 80048; 80061; 80076; 80307; 81001; 82962; 83605; 83690; 84443; 84484; 85025; 85651; 93005; 93306; 93970; 94618; 94640; 94760; 96365; 96368; 96372; 99285; 99285-25; J0690; J0696; J1650; J2270; J2920; J3480; J7030; J7620; Q0144; Q9967

== ENCOUNTER 2017-10-31 20:03 | Emergency (ER) | payer SELFPAY ==
[2017-07-16 09:22] VITALS: BP 117/93
[~2017-10-31 20:03] MED LIST changes: +AZIT250T6 PO; +CEFP200T PO; +LOSA100T7 PO; -LOSA25TA4 PO; +LOSA25TA5 PO; -OXYC-250 PO; +OXYC-328 PO; +PRED-220 PO; +ROPI4TAB10 PO; -ROPI4TAB4 PO; +UMEC1DIS IH
== END 2017-10-31 20:19 | disposition left against medical advice (07) ==
LOC: ER 20:03
DX: M79.89 Other specified soft tissue disorders (principal); Z53.21 Procedure and treatment not carried out due to patient leaving prior to being seen by health care provider

== ENCOUNTER → 2018-01-23 | Outpatient (CLI) | payer MEDICARE ==
[2017-07-16 09:22] VITALS: BP 117/93
[~2018-01-23] MED LIST changes: +BUPIVACAINE MPF 0.25% 10 ML VIAL. ONE; +CYAN10005 PO; +DICL100G18 TP; +GLYC10.7 IH; +HYDR-2145 PO; -HYDR25TA9 PO; +IOHEXOL 180 MG/ML 10 ML VIAL. ONE; +LOSA100T14 PO; -LOSA100T7 PO; -LOSA25TA5 PO; +LOSA25TA54 PO; +NYST15CR TP; -OXYC-328 PO; +OXYC1TAB22 PO; +SERT100T PO; +methylPREDNISolone ACETATE 80 MG/ML VIAL. ONE
--- NOTE | 2018-01-23 17:51 | PAIN ---
DATE OF SERVICE: 01/23/2018 CHIEF COMPLAINT: Right hip pain. HISTORY OF PRESENT ILLNESS: The patient is a 67-year-old female with history of right hip pain for about 3 months, increasing with walking, standing, change in positions. The patient reports no injury or accident that she is aware of. Also, has some back pain and left lower extremity pain as well, but separate issue with her right hip. The patient has recently seen her orthopedic surgeon who was encouraging conservative management at this time. She was having significant pain with walking, standing, changing positions, bending or stooping, especially reaching down to put all of her weight on her right leg, such as with stepping on a stair or curb. The patient reports she avoids stairs at all cost because the pain is so significant. The patient reports it was awakened from sleep at night at least once or twice. The patient has tried some physical therapy in the past, nothing recently, also doing some stretching and strengthening exercises on her own currently. The patient reports also some low back pain, radiating pain into the left lower extremity posteriorly as well. The patient did have x-rays of the hip showing moderate osteoarthritis of the right hip joint as well as the right knee joint. The patient reports the patient is constant, sharp, stabbing throughout and shooting and radiating at times, tingling, burning, cramping, aching, and radiating to her right groin with weightbearing. The patient reports disability rate from 0-10, 10 being the worst, as 2 with family and home responsibilities and recreation; 1 with social activity and 0 with occupation, sexual behavior, self-care and life support activities. PAST MEDICAL HISTORY: Significant for shortness of breath, COPD, cigarette smoking, borderline diabetes, hypertension, gastroesophageal reflux, arthritis, depression, anxiety. PREVIOUS SURGERY: Include hysterectomy, cholecystectomy, bladder suspension and cervical diskectomy. CURRENT MEDICATIONS: Include Ventolin inhaler, losartan, gabapentin, ropinirole, omeprazole, vitamin B12, Voltaren, nystatin, sertraline, Percocet, alprazolam, also glycopyrrolate inhaler. ALLERGIES: THE PATIENT HAS ALLERGIES TO MEPERIDINE AND SULFA. FAMILY HISTORY: Significant for no major medical problems or conditions she is aware of. SOCIAL HISTORY: The patient does not drink alcohol. Smokes less than a pack a day, has for many years. ____ illegal with her recreational drugs. She is single. Lives locally in [place], [place]. REVIEW OF SYSTEMS: The patient's review of systems is positive for those items mentioned in history of present illness. All systems reviewed and otherwise negative. It is complete, full and well documented on the patient's chart. PHYSICAL EXAMINATION: VITAL SIGNS: Today, the patient's blood pressure is 154/105, pulse 76, respirations 16, temperature 98.2 degrees Fahrenheit, height is 5 feet 4 inches, weight is 175 pounds. GENERAL: The patient is awake, alert, oriented, appropriate, very pleasant demeanor. HEENT: Head is normocephalic, atraumatic. Extraocular movements are intact and symmetrical. Oral cavity: Mucous membranes moist and pink. Dentition is intact. NECK: Shows anterior throat supple without palpable lymphadenopathy noted. Swallow reflex symmetrical. CHEST: Shows normal with inspection. Breath sounds clear to auscultation bilaterally. HEART: Shows S1, S2 clear. No murmurs auscultated. ABDOMEN: Soft, nontender, nondistended. No palpable organomegaly is noted. No rebound or guarding demonstrated. BACK: Shows spine grossly in the midline. Normal-appearing thoracic kyphosis, some minor flattening of lumbar lordotic curvature. Lumbar paraspinous muscle shows symmetrical on inspection. Palpation shows some moderate tenderness bilaterally, more on the left than the right, but just symmetrical. Good rotational motion both laterally as well as extension and flexion of lumbar spine without significant difficulty. No tenderness over the sacrum or sacroiliac region. EXTREMITIES: Lower extremities show deep tendon reflexes at 1+ in the patellar and tendo calcaneus tendons are equal. Motor exam is approximately 4 on a scale of 5 on the right and 5/5 on the left. Peripheral pulses are 1+ posterior tibial. No peripheral edema is noted. Lower extremities are warm and dry to touch, equal in color and appearance. The patient does have a positive straight leg raise on the left at about 35 degrees, decreased with knee flexion and negative on the right; however, has a positive Prashant's maneuver on the right, but negative on the left. Gaenslen's maneuver is negative bilaterally. The patient is able to stand, stand on her toes without significant difficulty or loss of balance, walks with a slight limping gait, does appear to favor the right lower extremity to some extent, not using assistive devices to ambulate while she is in the office today. SKIN: The patient's skin is warm and dry, good turgor. No edema. No sores or rashes. IMPRESSION: This is a 67-year-old female with: 1. Approximately 3-month history of increasing pain, right hip. 2. Plain films right hip as noted. 3. Hypertension. 4. Arthritis. 5. Chronic obstructive pulmonary disease. PLAN: Options were discussed with the patient including conservative medical management, physical therapy, interventional techniques. She elected to proceed with interventional techniques. We discussed a right intraarticular hip joint injection using description as well as anatomical models to describe the procedure. Risks were then discussed including, but not limited to bleeding, infection, possibility of intravascular injection sequelae, spread of local anesthetic and numbness, side effects of steroid medication, exposure to fluoroscopy as well as poor results regarding pain control. The patient understands and wished to proceed. The patient will return to clinic in approximately 2 weeks for followup, was counseled on return appointment, activity level and side effects to be aware of. DIAGNOSIS: Right hip joint pain with primary osteoarthritis, right hip joint. PROCEDURE: Right intraarticular hip joint injection using C-arm fluoroscopic guidance under sterile prep and drape using local anesthetic. MEDICATION INJECTED: A total of 80 mg Depo-Medrol plus 3 mL of 0.25% bupivacaine and 2 mL of Isovue for contrast. CONDITION AT DISCHARGE: Stable. The patient tolerated the procedure well, had no complications. MIRIAN GHOSH MD DR: ROSALES/aleksandra JOB#: [id number] / [id number]
== END | disposition home or self-care (01) ==
LOC: PNCL 09:22
PROVIDERS: ATTEND Anesthesiology
DX: M16.11 Unilateral primary osteoarthritis, right hip (principal); I10 Essential (primary) hypertension; M19.90 Unspecified osteoarthritis, unspecified site; J44.9 Chronic obstructive pulmonary disease, unspecified; F17.210 Nicotine dependence, cigarettes, uncomplicated; K21.9 Gastro-esophageal reflux disease without esophagitis; F41.9 Anxiety disorder, unspecified; F32.9 Major depressive disorder, single episode, unspecified; Z90.49 Acquired absence of other specified parts of digestive tract; Z90.710 Acquired absence of both cervix and uterus; Z98.890 Other specified postprocedural states; Z79.899 Other long term (current) drug therapy; Z88.2 Allergy status to sulfonamides; Z88.6 Allergy status to analgesic agent
CPT/HCPCS: 20610; 77002; J1040; J3490; Q9965

== ENCOUNTER → 2018-10-10 | Outpatient (CLI) | payer MEDICARE ==
[2017-07-16 09:22] VITALS: BP 117/93
[~2018-10-10] MED LIST changes: -BUPIVACAINE MPF 0.25% 10 ML VIAL. ONE; +CYAN-25 PO; -CYAN10005 PO; -GABA600T2 PO; +GABA600T7 PO; -IOHEXOL 180 MG/ML 10 ML VIAL. ONE; -POTA8CAP PO; +POTA8CAP19 PO; -methylPREDNISolone ACETATE 80 MG/ML VIAL. ONE
--- NOTE | 2018-10-11 16:05 | KCIC ---
Bone Densitometry History: Estrogen deficiency Findings: Bone Densitometry was performed with dual photon absorption of the lumbar spine and left proximal femur. Lumbar Spine: Bone density is 1.260 g/cm2 for L1-L4. T-score is 1.9. Z-score is 3.8. Left total femur: Bone density is 0.739 g/cm2. T-score is -1.7. Z-score is -0.4. IMPRESSION: 1. Normal bone mineral density of the lumbar spine. 2. Osteopenia of the proximal left femur. World Health Organization definition of osteoporosis and osteopenia for women: normal equals T score at or above -1.0 standard deviations; osteopenia equals T score between -1.0 and -2.5 standard deviations; osteoporosis equals T score at or below -2.5 standard deviations. Electronically signed by: Vivek Hernandez MD (10/11/2018 4:01 PM) [id number]
== END | disposition home or self-care (01) ==
LOC: KCIC DEXA 10:04
PROVIDERS: ATTEND Internal Medicine
DX: Z12.31 Encounter for screening mammogram for malignant neoplasm of breast (principal); E28.39 Other primary ovarian failure; Z13.820 Encounter for screening for osteoporosis
CPT/HCPCS: 77063; 77067; 77080

== ENCOUNTER 2018-10-22 19:50 | Emergency (ER) | payer MEDICARE ==
[~2018-10-22] VITALS: Ht 162.6 cm; Wt 65.8 kg
[2018-10-22 20:48] LABS: BASO % 0 % (0-3); EOS # 0.1 x10^3/uL (0.0-0.7); EOS % 1 % (0-3); HEMOGLOBIN 13.3 g/dL (12.0-15.5); LYMPH # 1.3 x10^3/uL (1.0-4.8); LYMPH % 17 % (24-48); MEAN CORPUSCULAR HEMOGLOBIN 30 pg (25-35); MEAN CORPUSCULAR HGB CONC 33 g/dL (31-37); MEAN CORPUSCULAR VOLUME 89 fL (79-100); MONO # 0.5 x10^3/uL (0.0-1.1); MONO % 7 % (0-9); NEUT # 5.7 x10^3/uL (1.8-7.7); NEUT % 74 % (31-73); PLATELET COUNT 198 x10^3/uL (140-400); RED BLOOD COUNT 4.47 x10^6/uL (3.50-5.40); RED CELL DISTRIBUTION WIDTH 16.5 % (11.5-14.5); WHITE BLOOD COUNT 7.7 x10^3/uL (4.0-11.0)
[2018-10-22 21:02] LABS: ALBUMIN 2.9 g/dL (3.4-5.0); ALBUMIN/GLOBULIN RATIO 0.8 (1.0-1.7); CALCIUM 8.8 mg/dL (8.5-10.1); CREATININE 0.7 mg/dL (0.6-1.0); GFR 83.7; MAGNESIUM 1.5 mg/dL (1.8-2.4); TOTAL BILIRUBIN 0.4 mg/dL (0.2-1.0); TOTAL PROTEIN 6.5 g/dL (6.4-8.2)
[2018-10-22 21:07] LABS: POTASSIUM 2.6 mmol/L (3.5-5.1)
[2018-10-22] MEDS ORDERED: POTASSIUM CHLORIDE 40 MEQ in IV DEXTROSE 5% 1,000 ML IV ONE (21:15)
[2018-10-22] MEDS ORDERED: POTASSIUM CHLORIDE 20 MEQ TABLET.ER. PO ONE (21:15)
[2018-10-22] MEDS ORDERED: fentaNYL PF VIAL 100 MCG/2 ML VIAL IV ONE (21:15)
--- NOTE | 2018-10-22 21:59 | RAD ---
CT scan of the head without contrast 10/22/2018 Clinical History: Frequent falls. Head injury. Technique: Unenhanced, contiguous, 5 mm axial sections were obtained through the head. One or more of the following individualized dose reduction techniques were utilized for this study: 1. Automated exposure control. 2. Adjustment of the mA and/or kV according to patient size. 3. Use of iterative reconstruction technique. Findings: There is generalized parenchymal atrophy. Areas of decreased attenuation are seen within the periventricular and subcortical white matter of both cerebral hemispheres consistent with areas of small vessel ischemic disease. No acute parenchymal abnormality is seen. No extra-axial fluid collection is noted. No skull fracture is seen. Impression: No acute intracranial abnormality is seen. Electronically signed by: Antoine Urias MD (10/22/2018 9:56 PM) [facility]
[2018-10-22] MEDS ORDERED: MAGNESIUM SULFATE 2GM 50 ML IV ONE (22:00)
--- NOTE | 2018-10-22 22:12 | RAD ---
CT scan chest without contrast 10/22/2018 CLINICAL HISTORY: Fall with left rib injury. TECHNIQUE: Unenhanced, contiguous, 5 mm axial sections were obtained through the chest and upper abdomen. One or more of the following individualized dose reduction techniques were utilized for this study: 1. Automated exposure control. 2. Adjustment of the mA and/or kV according to patient size. 3. Use of iterative reconstruction technique. FINDINGS: Comparison study is dated 05/09/2016. Atherosclerotic calcification of the thoracic aorta and its branches is noted. The thoracic aorta is tortuous but tapers normally. The heart is mildly enlarged. Small calcified hilar and mediastinal lymph nodes are seen. Mild bullous emphysematous changes are seen involving both lungs. Small calcified granulomas are seen bilaterally. Dependent subsegmental atelectasis is seen involving both lower lobes. No area of consolidation is seen. No pneumothorax or pleural effusion is noted. Old left-sided rib fractures are again seen, unchanged. No acute fracture is seen. Images through the upper abdomen demonstrate atherosclerotic calcification of the abdominal aorta. Mild S-shaped curvature of the thoracolumbar spine is seen. Degenerative changes are seen involving the thoracic spine. IMPRESSION: No acute abnormality is seen. Electronically signed by: Antoine Urias MD (10/22/2018 10:09 PM) [facility]
--- NOTE | 2018-10-22 22:19 | RAD ---
Exam: CT pelvis INDICATION: Fall TECHNIQUE: Sequential axial images through the pelvis obtained without IV contrast. Sagittal and coronal reformatted images were reconstructed from the axial data and reviewed. Comparisons: Radiograph same day FINDINGS: Visualized intrapelvic structures are unremarkable. Flattening of the right femoral head with osseous remodeling of the acetabulum. An acute fracture is not identified. There is a moderate-sized effusion at the right hip joint which demonstrates some internal hyperdensity. Pubic symphysis and sacroiliac joints are well-maintained. IMPRESSION: 1. Chronic flattening of the right femoral head with osseous remodeling of the acetabulum. Apparent mild subluxation which is likely chronic. 2. There is a moderate-sized right joint effusion which does demonstrate some internal hyperdensity, concerning for hemorrhagic products. No fracture is seen. If the patient is acutely unable to bear weight MRI is recommended to rule out occult hip fracture. Exposure: One or more of the following in the visualized dose reduction techniques were utilized for this examination: 1. Automated exposure control 2. Adjustment of the MA and/or KV according to patient size 3. Use of iterative of reconstructive technique Electronically signed by: Win Gallagher MD (10/22/2018 10:16 PM) [id number]
[2018-10-22 23:00] VITALS: BP 138/74
--- NOTE | 2018-10-22 23:19 | PHYS DOC ---
Past Medical History Past Medical History: Anxiety, COPD, Depression, GERD, Hypertension Additional Past Medical Histor: DDD, RLS Past Surgical History: Appendectomy, Cholecystectomy, Hysterectomy Alcohol Use: None Drug Use: None Adult General Chief Complaint Chief Complaint: MECHANICAL FALL HPI HPI Patient is a 68 year old female who was brought here for evaluation due to being falling frequently for the last 3 days. Patient fell and landed on her chest 2 days . She denied any head or neck injury. Patient has chronic right hip pain. She has been walking with a walker. She was fell on her buttock today when she tripped on her walker. Patient denied any back pain, she said the pain on her right hip is worse after the fall today. Patient felt weaker than usual. She denied any headache, no neck pain, no chest pain, no abdominal pain, no nausea or vomiting. All other ROS is negative unless otherwise noted in HPI Review of Systems Review of Systems See above Current Medications Current Medications Current Medications Medications (Trade) Dose Ordered Sig/Eduarda Start Time Stop Time Status Last Admin Dose Admin Fentanyl Citrate (Fentanyl 2ml Vial) 50 mcg 1X ONCE 10/22/18 21:15 10/22/18 21:16 DC 10/22/18 21:50 50 MCG Magnesium Sulfate 50 ml @ 25 mls/hr 1X ONCE 10/22/18 22:00 10/22/18 23:54 DC 10/22/18 22:26 25 MLS/HR Potassium Chloride 40 meq/ Dextrose 1,020 ml @ 75 mls/hr 1X ONCE 10/22/18 21:15 10/22/18 23:54 DC 10/22/18 21:50 75 MLS/HR Potassium Chloride (Klor-Con) 40 meq 1X ONCE 10/22/18 21:15 10/22/18 21:16 DC 10/22/18 21:50 40 MEQ Allergies Allergies Allergies Coded Allergies Type Severity Reaction Last Updated Verified Sulfa (Sulfonamide Antibiotics) Allergy Intermediate 01/23/18 Yes meperidine Allergy Intermediate 01/23/18 Yes Physical Exam Physical Exam See above Constitutional: Well developed, well nourished, no acute distress, non-toxic appearance. [] HENT: Normocephalic, atraumatic, bilateral external ears normal, oropharynx moist, no oral exudates, nose normal. [] Eyes: PERRLA, EOMI, conjunctiva normal, no discharge. [] Neck: Normal range of motion, no tenderness, supple, no stridor. [] Cardiovascular:Heart rate regular rhythm, no murmur [] Lungs & Thorax: Bilateral breath sounds clear to auscultation [] Abdomen: Bowel sounds normal, soft, no tenderness, no masses, no pulsatile masses. [] Skin: Warm, dry, no erythema, no rash. [] Back: No tenderness, no CVA tenderness. [] Extremities: right side pelvic and hip tender to palpation. Her right leg is slightly shorter than left leg. Neurologic: Alert and oriented X 3, normal motor function, normal sensory function, no focal deficits noted. [] Psychologic: Affect normal, judgement normal, mood normal. [] Current Patient Data Vital Signs Vital Signs Date Time Temp Pulse Resp B/P (MAP) Pulse Ox O2 Delivery O2 Flow Rate FiO2 10/22/18 23:00 64 16 95 10/22/18 21:50 Room Air 10/22/18 19:55 98.0 132/79 (96) 98.0 Lab Values Laboratory Tests Test 10/22/18 20:20 White Blood Count 7.7 x10^3/uL (4.0-11.0) Red Blood Count 4.47 x10^6/uL (3.50-5.40) Hemoglobin 13.3 g/dL (12.0-15.5) Hematocrit 40.0 % (36.0-47.0) Mean Corpuscular Volume 89 fL (79-100) Mean Corpuscular Hemoglobin 30 pg (25-35) Mean Corpuscular Hemoglobin Concent 33 g/dL (31-37) Red Cell Distribution Width 16.5 % (11.5-14.5) H Platelet Count 198 x10^3/uL (140-400) Neutrophils (%) (Auto) 74 % (31-73) H Lymphocytes (%) (Auto) 17 % (24-48) L Monocytes (%) (Auto) 7 % (0-9) Eosinophils (%) (Auto) 1 % (0-3) Basophils (%) (Auto) 0 % (0-3) Neutrophils # (Auto) 5.7 x10^3/uL (1.8-7.7) Lymphocytes # (Auto) 1.3 x10^3/uL (1.0-4.8) Monocytes # (Auto) 0.5 x10^3/uL (0.0-1.1) Eosinophils # (Auto) 0.1 x10^3/uL (0.0-0.7) Basophils # (Auto) 0.0 x10^3/uL (0.0-0.2) Sodium Level 137 mmol/L (136-145) Potassium Level 2.6 mmol/L (3.5-5.1) *L Chloride Level 98 mmol/L (98-107) Carbon Dioxide Level 29 mmol/L (21-32) Anion Gap 10 (6-14) Blood Urea Nitrogen 13 mg/dL (7-20) Creatinine 0.7 mg/dL (0.6-1.0) Estimated GFR (Cockcroft-Gault) 83.7 BUN/Creatinine Ratio 19 (6-20) Glucose Level 121 mg/dL (70-99) H Calcium Level 8.8 mg/dL (8.5-10.1) Magnesium Level 1.5 mg/dL (1.8-2.4) L Total Bilirubin 0.4 mg/dL (0.2-1.0) Aspartate Amino Transferase (AST) 21 U/L (15-37) Alanine Aminotransferase (ALT) 17 U/L (14-59) Alkaline Phosphatase 89 U/L (46-116) Total Protein 6.5 g/dL (6.4-8.2) Albumin 2.9 g/dL (3.4-5.0) L Albumin/Globulin Ratio 0.8 (1.0-1.7) L Laboratory Tests 10/22/18 20:20 Laboratory Tests 10/22/18 20:20 EKG EKG [] Radiology/Procedures Radiology/Procedures [][facility] [address] [place], [place] [id number] IMAGING REPORT Signed PATIENT: ALONSO BEAR ACCOUNT: [id number] : 1950 LOCATION: ER AGE: 68 SEX: F EXAM STATUS: REG ER ORD. PHYSICIAN: NANDO LUX DO REASON: frequent falls lately PROCEDURE: CT HEAD WO CONTRAST CT scan of the head without contrast 10/22/2018 Clinical History: Frequent falls. Head injury. Technique: Unenhanced, contiguous, 5 mm axial sections were obtained through the head. One or more of the following individualized dose reduction techniques were utilized for this study: 1. Automated exposure control. 2. Adjustment of the mA and/or kV according to patient size. 3. Use of iterative reconstruction technique. Findings: There is generalized parenchymal atrophy. Areas of decreased attenuation are seen within the periventricular and subcortical white matter of both cerebral hemispheres consistent with areas of small vessel ischemic disease. No acute parenchymal abnormality is seen. No extra-axial fluid collection is noted. No skull fracture is seen. Impression: No acute intracranial abnormality is seen. Electronically signed by: Antoine Urias MD (10/22/2018 9:56 PM) [facility] DICTATED and SIGNED BY: ANTOINE URIAS MD DATE: 10/22/182155 [facility] [address] [place] [address] IMAGING REPORT Signed PATIENT: ALONSO BEAR ACCOUNT: [id number] : 1950 LOCATION: ER AGE: 68 SEX: F EXAM STATUS: REG ER ORD. PHYSICIAN: NANDO LUX DO REASON: fell, left side ribs injury PROCEDURE: CT CHEST WO CONTRAST CT scan chest without contrast 10/22/2018 CLINICAL HISTORY: Fall with left rib injury. TECHNIQUE: Unenhanced, contiguous, 5 mm axial sections were obtained through the chest and upper abdomen. One or more of the following individualized dose reduction techniques were utilized for this study: 1. Automated exposure control. 2. Adjustment of the mA and/or kV according to patient size. 3. Use of iterative reconstruction technique. FINDINGS: Comparison study is dated 05/09/2016. Atherosclerotic calcification of the thoracic aorta and its branches is noted. The thoracic aorta is tortuous but tapers normally. The heart is mildly enlarged. Small calcified hilar and mediastinal lymph nodes are seen. Mild bullous emphysematous changes are seen involving both lungs. Small calcified granulomas are seen bilaterally. Dependent subsegmental atelectasis is seen involving both lower lobes. No area of consolidation is seen. No pneumothorax or pleural effusion is noted. Old left-sided rib fractures are again seen, unchanged. No acute fracture is seen. Images through the upper abdomen demonstrate atherosclerotic calcification of the abdominal aorta. Mild S-shaped curvature of the thoracolumbar spine is seen. Degenerative changes are seen involving the thoracic spine. IMPRESSION: No acute abnormality is seen. Electronically signed by: Antoine Urias MD (10/22/2018 10:09 PM) [facility] DICTATED and SIGNED BY: ANTOINE URIAS MD DATE: 10/22/182208 [facility] [address] [place] [address] IMAGING REPORT Signed PATIENT: ALONSO BEAR ACCOUNT: [id number] : 1950 LOCATION: ER AGE: 68 SEX: F EXAM STATUS: REG ER ORD. PHYSICIAN: NANDO LUX DO REASON: right hip injury, appeared partially subluxed on xray PROCEDURE: CT PELVIS WO CONTRAST Exam: CT pelvis INDICATION: Fall TECHNIQUE: Sequential axial images through the pelvis obtained without IV contrast. Sagittal and coronal reformatted images were reconstructed from the axial data and reviewed. Comparisons: Radiograph same day FINDINGS: Visualized intrapelvic structures are unremarkable. Flattening of the right femoral head with osseous remodeling of the acetabulum. An acute fracture is not identified. There is a moderate-sized effusion at the right hip joint which demonstrates some internal hyperdensity. Pubic symphysis and sacroiliac joints are well-maintained. IMPRESSION: 1. Chronic flattening of the right femoral head with osseous remodeling of the acetabulum. Apparent mild subluxation which is likely chronic. 2. There is a moderate-sized right joint effusion which does demonstrate some internal hyperdensity, concerning for hemorrhagic products. No fracture is seen. If the patient is acutely unable to bear weight MRI is recommended to rule out occult hip fracture. Exposure: One or more of the following in the visualized dose reduction techniques were utilized for this examination: 1. Automated exposure control 2. Adjustment of the MA and/or KV according to patient size 3. Use of iterative of reconstructive technique Electronically signed by: Win Fagan MD (10/22/2018 10:16 PM) [facility] DICTATED and SIGNED BY: WIN FAGAN MD DATE: 10/22/182215 Course & Med Decision Making Course & Med Decision Making Pertinent Labs and Imaging studies reviewed. (See chart for details) Patient's potassium level and magnesium level were low. Patient was given replacement in the ER. RADIOLOGY STUDIES did not show any acute fracture or acute dislocation. This physician discussed with patient's family doctor, Dr. Bolivar, planned to admit patient for observation. However, patient did not want to stay. She said she has potassium pills at home. She will take it at home. She will follow up with Dr. Bolivar tomorrow. Patient's FAMILY is here with her, her daughter will take her home. Patient got up, used the walker to walk to the restroom here. Dragon Disclaimer Dragon Disclaimer This electronic medical record was generated, in whole or in part, using a voice recognition dictation system. Departure Departure Impression: Primary Impression: Hypokalemia Additional Impressions: Hypomagnesemia Pelvic pain Hip pain, right Disposition: 01 HOME, SELF-CARE Admitting Physician: Kesha Bolivar Condition: STABLE Referrals: KESHA BOLIVAR MD (PCP) follow up with your doctor tomorrow. Patient Instructions: Hip Pain, Hypokalemia, Hypomagnesemia Problem Qualifiers NANDO LUX DO Oct 22, 2018 23:19
--- NOTE | 2018-10-23 00:26 | RAD ---
AP pelvis to include AP and lateral radiographs of the right hip 10/22/2018 CLINICAL HISTORY: Fall with right hip pain. AP digital radiograph of pelvis to include both hips was obtained. AP and lateral digital radiographs of the right hip were obtained. Chronic appearing superior subluxation of the right humeral head in relation to the acetabulum is noted. Bony remodeling of the acetabulum is seen. No acute pelvic bone fracture is seen. No acute fracture or dislocation of either hip is noted. Mild to moderate degenerative changes are seen involving both SI joints and both hips. Atherosclerotic calcification of the common iliac arteries and their branches is noted. IMPRESSION: No acute fracture or dislocation is seen. Electronically signed by: Antoine Urias MD (10/23/2018 12:23 AM) [facility]
== END 2018-10-22 23:50 | disposition home or self-care (01) ==
LOC: ER 19:50
DX: E87.6 Hypokalemia (principal); M89.29 Other disorders of bone development and growth, multiple sites; M25.551 Pain in right hip; R10.2 Pelvic and perineal pain; E83.42 Hypomagnesemia; J44.9 Chronic obstructive pulmonary disease, unspecified; F41.9 Anxiety disorder, unspecified; F32.9 Major depressive disorder, single episode, unspecified; K21.9 Gastro-esophageal reflux disease without esophagitis; I10 Essential (primary) hypertension; Z90.89 Acquired absence of other organs; Z90.49 Acquired absence of other specified parts of digestive tract; Z90.710 Acquired absence of both cervix and uterus; Z88.8 Allergy status to other drugs, medicaments and biological substances; Z88.2 Allergy status to sulfonamides; W01.0XXA Fall on same level from slipping, tripping and stumbling without subsequent striking against object, initial encounter; Y93.01 Activity, walking, marching and hiking; Y92.89 Other specified places as the place of occurrence of the external cause; Y99.8 Other external cause status
CPT/HCPCS: 96365; 96366; 96368; 96375; 99285; J3010; J3475; J3480; 36415; 70450; 71250; 72192; 73502; 80053; 83735; 85025

== ENCOUNTER 2018-10-25 02:15 | Inpatient (IN) | payer MEDICARE ==
[~2018-10-25] VITALS: Ht 163.8 cm; Wt 65.8 kg
[2018-10-25] MEDS ORDERED: oxyCODONE/APAP 10/325 1 TAB TABLET PO PRN (12:00)
[2018-10-25] MEDS: PANTOPRAZOLE 40 MG TABLET.DR. PO SCH (13:00)
[2018-10-25] MEDS: LOSARTAN POTASSIUM 50 MG TABLET. PO SCH (13:00)
[2018-10-25] MEDS ORDERED: POTASSIUM CHLORIDE 10 MEQ TABLET.ER. PO SCH (13:00)
[2018-10-25] MEDS: DICLOFENAC SODIUM 1% TOPICAL GEL 100GM TUBE. TP SCH ×3 (13:00→22:12)
[2018-10-25] MEDS: SERTRALINE 50 MG TABLET. PO SCH (13:00)
[2018-10-25] MEDS: CYANOCOBALAMIN (VITAMIN B-12) 1,000 MCG TABLET. PO SCH (13:00)
[2018-10-25] MEDS: fentaNYL PF VIAL 100 MCG/2 ML VIAL IV PRN ×2 (13:15→18:03)
[2018-10-25] MEDS: GABAPENTIN 300 MG CAPSULE. PO SCH ×2 (13:27→22:07)
[2018-10-25 13:33] LABS: BASO % 1 % (0-3); EOS # 0.1 x10^3/uL (0.0-0.7); EOS % 1 % (0-3); HEMOGLOBIN 14.9 g/dL (12.0-15.5); LYMPH # 1.8 x10^3/uL (1.0-4.8); LYMPH % 22 % (24-48); MEAN CORPUSCULAR HEMOGLOBIN 30 pg (25-35); MEAN CORPUSCULAR HGB CONC 34 g/dL (31-37); MEAN CORPUSCULAR VOLUME 89 fL (79-100); MONO # 0.6 x10^3/uL (0.0-1.1); MONO % 7 % (0-9); NEUT # 5.5 x10^3/uL (1.8-7.7); NEUT % 69 % (31-73); PLATELET COUNT 199 x10^3/uL (140-400); RED BLOOD COUNT 4.92 x10^6/uL (3.50-5.40); RED CELL DISTRIBUTION WIDTH 16.8 % (11.5-14.5)
[2018-10-25 13:39] LABS: PROTHROMBIN TIME PATIENT 12.8 SEC (11.7-14.0)
[2018-10-25 13:53] LABS: ALBUMIN/GLOBULIN RATIO 0.8 (1.0-1.7); CALCIUM 9.1 mg/dL (8.5-10.1); CREATININE 0.7 mg/dL (0.6-1.0); GFR 83.7; TOTAL BILIRUBIN 0.5 mg/dL (0.2-1.0); TOTAL PROTEIN 6.8 g/dL (6.4-8.2)
[2018-10-25 14:06] LABS: POTASSIUM 2.9 mmol/L (3.5-5.1)
--- NOTE | 2018-10-25 14:23 | EKG ---
[facility] [address] [place] [address] Test Date: 2018-10-25 Test Time: 14:00:07 Pat Name: ALONSO BEAR Department: Room: 430 Gender: F Starchmaker: : 1950 Requested By: ROBINSON BOLIVAR Order Number: [id number] Reading MD: Measurements Intervals Wilson Rate: 64 P: 31 IL: 156 QRS: -51 QRSD: 108 T: 86 QT: 422 QTc: 435 Interpretive Statements SINUS RHYTHM LEFT ATRIAL ABNORMALITY ABNORMAL LEFT AXIS DEVIATION LEFT ANTERIOR FASCICULAR BLOCK LVH WITH REPOLARIZATION ABNORMALITY ABNORMAL ECG RI6.01 Unconfirmed report Compared to ECG 07/16/2017 10:51:03 Early repolarization now present Prolonged QT interval no longer present
[2018-10-25] MEDS ORDERED: POTASSIUM CHLORIDE 20 MEQ TABLET.ER. PO ONE (14:30)
[2018-10-25] MEDS: rOPINIRole 1 MG TABLET. PO SCH (14:31)
[2018-10-25 15:00] VITALS: BP 112/55
--- NOTE | 2018-10-25 15:53 | PDOC ---
Provider Note Provider Note Pt seen.H&P dictated.#[id number] ROBINSON BOLIVAR MD Oct 25, 2018 15:53
[2018-10-25] MEDS: NICOTINE 7MG PATCH. TD SCH (16:00)
[2018-10-25] MEDS: ALBUTEROL SULFATE 2.5 MG/3 ML NEBU. NEB SCH ×2 (16:23→20:36)
[2018-10-25] MEDS: POTASSIUM CHLORIDE 20 MEQ TABLET.ER. PO SCH (18:03)
[2018-10-25] MEDS: SUCRALFATE 1 GM TABLET. PO SCH (18:03)
[2018-10-25] MEDS: HEPARIN for SUB-Q USE 5,000 UNIT/ML VIAL. SQ SCH ×2 (18:11→22:00)
--- NOTE | 2018-10-25 18:26 | HP ---
ADMIT DATE: 10/25/2018 LOCATION: 430. REASON FOR ADMISSION TO THE HOSPITAL: Severe septic necrosis of the right hip plus intertrochanteric fracture from fall. HISTORY OF PRESENT ILLNESS: The patient is a 68-year-old female. The patient has been pain in the right hip on and off for some time has seen Dr. Vasquez in the office couple of times and she is in the process of getting an MRI to determine if she needs hip replacement. She also had a cortisone injection sometime in the past. She had a fall 2 days ago, came to the Emergency Room, had a CT head negative, CT chest negative and CT of the pelvis shows a chronic flattening of the right femoral head, mild subluxation, moderate sized right joint effusion. The patient had an MRI, which shows probably nondisplaced intertrochanteric fracture and the patient had went home and she was having lot of pain. The patient was admitted to the hospital, seen by Ortho, probably we will schedule for surgery because the weekend on Sunday. PAST MEDICAL HISTORY: She has history of COPD, hypertension, hyperlipidemia, depression, chronic lung disease, history of viral hepatitis in the past. ALLERGIES: DEMEROL, SULFA. PAST SURGICAL HISTORY: She had a surgery in the cervical spine. PERSONAL HISTORY: Still smokes 1 pack daily. Denies alcohol. Denies any street drugs. MEDICATIONS AT HOME: The patient is on Xanax 0.25 p.r.n., nystatin, Bevepsi inhaler, albuterol 2 puffs 4 times daily, B12 1000 mcg daily, diclofenac for arthritis, gabapentin 600 mg 3 times daily, losartan 100 mg daily, omeprazole 40 mg daily, Percocet 10/325 q.6, ropinirole 4 mg for restless legs syndrome, Zoloft 100 mg daily and she has started taking potassium pills. Her potassium was low. FAMILY HISTORY: Unremarkable. had hepatitis C. REVIEW OF SYSTEMS: CARDIAC: No chest pain. GASTROINTESTINAL: No nausea. EXTREMITIES: The patient has been having severe pain in the right hip as well as the leg. Rest of the 14-system was reviewed and negative. PHYSICAL EXAMINATION: GENERAL: The patient is in pain. VITAL SIGNS: Temperature 97, pulse 70, respirations 16, blood pressure 112/50, 594 on room air. HEENT: Head is atraumatic. Pupils equal. Oral cavity: Dentures. NECK: Supple. Scar of previous neck surgery. CHEST: Symmetrical. CARDIOVASCULAR: S1, S2. LUNGS: No wheezing. Clear to auscultation. ABDOMEN: Soft, no mass palpable. EXTERNAL GENITALIA: No Hu. RECTAL: Deferred. EXTREMITIES: The patient has pain in the right hip as well as going to the right lower leg, some wasting of the muscles and foot, no edema. NEUROLOGIC: No focal deficits. LABORATORY DATA: White count 8, hemoglobin 15, platelets 199. INR is 1.0. Electrolytes show sodium 136, potassium 3.9, chloride 98, bicarbonate 32, BUN 8, creatinine 0.7, glucose 103. LFTs were normal and the patient had an EKG, CT chest and MRI of the pelvis. FINAL DIAGNOSES: 1. Mechanical fall, right hip intertrochanteric fracture, nondisplaced. 2. 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 3. Chronic obstructive pulmonary disease. 4. History of hepatitis was treated in the past. 5. Anxiety. 6. Depression. 7. Osteoporosis. PLAN: At this time, was admit to hospital, seen by Ortho probably need a joint replacement, right hip with bipolar hip prosthesis and PT, OT rehabilitation. Smoking counseling was done. Incentive spirometry and see how the patient improves. ROBINSON BOLIVAR MD DR: KALEN/aleksandra JOB#: [id number] / [id number]
[2018-10-25] MEDS ORDERED: MORPHINE SULFATE 2 MG/ML VIAL. IV PRN (18:30)
[2018-10-25 19:00] VITALS: BP 122/56
[2018-10-25] MEDS: MORPHINE SULFATE 2 MG/ML VIAL. IV PRN ×2 (19:34→23:49)
--- NOTE | 2018-10-25 22:00 | NUR ---
Heparin held surgery in am.
[2018-10-25 23:00] VITALS: BP 148/78
[2018-10-26] VITALS (11 sets, daily range): BP systolic 99–168; BP diastolic 58–92
[2018-10-26] MEDS: MORPHINE SULFATE 2 MG/ML VIAL. IV PRN ×7 (03:42→21:31)
[2018-10-26 04:36] LABS: CALCIUM 9.7 mg/dL (8.5-10.1); CREATININE 0.9 mg/dL (0.6-1.0); GFR 62.6; POTASSIUM 3.9 mmol/L (3.5-5.1)
[2018-10-26 04:43] LABS: ALBUMIN 2.9 g/dL (3.4-5.0); DIRECT BILIRUBIN 0.1 mg/dL (0.0-0.2); TOTAL BILIRUBIN 0.4 mg/dL (0.2-1.0); TOTAL PROTEIN 6.6 g/dL (6.4-8.2)
[2018-10-26] MEDS: HEPARIN for SUB-Q USE 5,000 UNIT/ML VIAL. SQ SCH ×3 (06:00→21:40)
--- NOTE | 2018-10-26 06:00 | NUR ---
Heparin held. Patient having surgery today.
[2018-10-26] MEDS: ALBUTEROL SULFATE 2.5 MG/3 ML NEBU. NEB SCH ×4 (07:06→18:13)
[2018-10-26] MEDS ORDERED: IV RINGERS,LACTATED 1000ML 1,000 ML IV SCH (07:16)
[2018-10-26] MEDS ORDERED: PROCHLORPERAZINE 10 MG/2 ML VIAL. IV PRN (07:30)
[2018-10-26] MEDS ORDERED: fentaNYL PF VIAL 100 MCG/2 ML VIAL IV PRN (07:30)
[2018-10-26] MEDS ORDERED: HYDROmorphone 2 MG/ML VIAL IV PRN (07:30)
[2018-10-26] MEDS ORDERED: ONDANSETRON PF 4 MG/2 ML VIAL. IV PRN (07:30)
[2018-10-26] MEDS ORDERED: DEXAMETHASONE SOD PHOS 4 MG/ML VIAL ONE (07:50)
[2018-10-26] MEDS ORDERED: ONDANSETRON PF 4 MG/2 ML VIAL. ONE (07:50)
[2018-10-26] MEDS ORDERED: LIDOCAINE 2% PF 5 ML VIAL. ONE (07:50)
[2018-10-26] MEDS ORDERED: PROPOFOL 20 ML IV ONE (07:50)
[2018-10-26] MEDS: LOSARTAN POTASSIUM 50 MG TABLET. PO SCH (08:08)
[2018-10-26] MEDS ORDERED: MIDAZOLAM HCL/PF 2 MG/2 ML VIAL. ONE (08:23)
[2018-10-26] MEDS ORDERED: fentaNYL PF VIAL 100 MCG/2 ML VIAL ONE ×2 (08:23→11:13)
[2018-10-26] MEDS ORDERED: MORPHINE SULFATE 5 MG, KETOROLAC 30MG VIAL 30 MG, ROPIVacaine 0.5% PF 60 ML, EPINEPHrin... INT ART ONE ×5 (08:30)
[2018-10-26] MEDS: DICLOFENAC SODIUM 1% TOPICAL GEL 100GM TUBE. TP SCH ×4 (09:00→21:00)
--- NOTE | 2018-10-26 09:37 | PDOC ---
IM PROGRESS NOTES- Subjective Subjective The patient is in the operating room for surgery. Objective Vitals/I&O Vital Signs Date Time Temp Pulse Resp B/P (MAP) Pulse Ox O2 Delivery O2 Flow Rate FiO2 10/26/18 08:08 64 168/92 10/26/18 07:59 Room Air 10/26/18 07:07 95 10/26/18 07:00 98.2 18 98.2 I & O 10/25/18 10/25/18 10/26/18 14:59 22:59 06:59 Intake Total 400 ml Output Total 200 ml Balance 200 ml Physical Exam Labs Laboratory Tests Test 10/25/18 13:25 10/26/18 04:00 White Blood Count 8.0 x10^3/uL (4.0-11.0) Red Blood Count 4.92 x10^6/uL (3.50-5.40) Hemoglobin 14.9 g/dL (12.0-15.5) Hematocrit 44.0 % (36.0-47.0) Mean Corpuscular Volume 89 fL (79-100) Mean Corpuscular Hemoglobin 30 pg (25-35) Mean Corpuscular Hemoglobin Concent 34 g/dL (31-37) Red Cell Distribution Width 16.8 % (11.5-14.5) H Platelet Count 199 x10^3/uL (140-400) Neutrophils (%) (Auto) 69 % (31-73) Lymphocytes (%) (Auto) 22 % (24-48) L Monocytes (%) (Auto) 7 % (0-9) Eosinophils (%) (Auto) 1 % (0-3) Basophils (%) (Auto) 1 % (0-3) Neutrophils # (Auto) 5.5 x10^3/uL (1.8-7.7) Lymphocytes # (Auto) 1.8 x10^3/uL (1.0-4.8) Monocytes # (Auto) 0.6 x10^3/uL (0.0-1.1) Eosinophils # (Auto) 0.1 x10^3/uL (0.0-0.7) Basophils # (Auto) 0.0 x10^3/uL (0.0-0.2) Prothrombin Time 12.8 SEC (11.7-14.0) Prothrombin Time INR 1.0 (0.8-1.1) Sodium Level 136 mmol/L (136-145) 136 mmol/L (136-145) Potassium Level 2.9 mmol/L (3.5-5.1) *L 3.9 mmol/L (3.5-5.1) # Chloride Level 98 mmol/L (98-107) 99 mmol/L (98-107) Carbon Dioxide Level 32 mmol/L (21-32) 31 mmol/L (21-32) Anion Gap 6 (6-14) 6 (6-14) Blood Urea Nitrogen 8 mg/dL (7-20) 15 mg/dL (7-20) Creatinine 0.7 mg/dL (0.6-1.0) 0.9 mg/dL (0.6-1.0) Estimated GFR (Cockcroft-Gault) 83.7 62.6 BUN/Creatinine Ratio 11 (6-20) Glucose Level 103 mg/dL (70-99) H 107 mg/dL (70-99) H Calcium Level 9.1 mg/dL (8.5-10.1) 9.7 mg/dL (8.5-10.1) Total Bilirubin 0.5 mg/dL (0.2-1.0) 0.4 mg/dL (0.2-1.0) Aspartate Amino Transferase (AST) 17 U/L (15-37) 17 U/L (15-37) Alanine Aminotransferase (ALT) 14 U/L (14-59) 12 U/L (14-59) L Alkaline Phosphatase 86 U/L (46-116) 93 U/L (46-116) Total Protein 6.8 g/dL (6.4-8.2) 6.6 g/dL (6.4-8.2) Albumin 3.0 g/dL (3.4-5.0) L 2.9 g/dL (3.4-5.0) L Albumin/Globulin Ratio 0.8 (1.0-1.7) L Direct Bilirubin 0.1 mg/dL (0.0-0.2) Laboratory Tests 10/25/18 13:25 Laboratory Tests 10/25/18 13:25 10/26/18 04:00 Meds Current Medications Medications (Trade) Dose Ordered Sig/Eduarda Route PRN Reason Start Time Stop Time Status Last Admin Dose Admin Fentanyl Citrate (Fentanyl 2ml Vial) 25 mcg PRN Q3HRS PRN IV PAIN 10/25/18 12:00 10/25/18 19:29 DC 10/25/18 18:12 Diclofenac Sodium (Voltaren) 1 palma QID TP 10/25/18 13:00 10/25/18 22:12 Oxycodone/ Acetaminophen (Percocet 10/325) 1 tab PRN Q4HRS PRN PO SEVERE PAIN 7-10 10/25/18 12:00 10/25/18 19:29 DC 10/25/18 14:33 Albuterol Sulfate (Ventolin Neb Soln) 2.5 mg RTQID NEB 10/25/18 16:00 10/26/18 07:06 Gabapentin (Neurontin) 600 mg TID PO 10/25/18 14:00 10/25/18 22:12 Losartan Potassium (Cozaar) 100 mg DAILY PO 10/25/18 13:00 10/26/18 08:08 Ropinirole HCl (Requip) 4 mg DAILY PO 10/25/18 13:00 10/25/18 14:33 Sucralfate (Carafate) 1 gm BIDAC PO 10/25/18 16:30 10/25/18 18:12 Potassium Chloride (Klor-Con) 40 meq 1X ONCE PO 10/25/18 14:30 10/25/18 14:31 DC 10/25/18 14:33 Potassium Chloride (Klor-Con) 20 meq DAILYWBKFT PO 10/25/18 16:00 10/25/18 18:12 Heparin Sodium (Porcine) (Heparin Sodium) 5,000 unit Q8HRS SQ 10/25/18 16:00 10/27/18 15:59 10/25/18 18:12 Morphine Sulfate (Morphine Sulfate) 4 mg PRN Q4HRS PRN IV PAIN SEVERE 10/25/18 18:30 10/26/18 07:59 Assessment Assessment 1. Mechanical fall, right hip intertrochanteric fracture, nondisplaced. 2. 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 3. Chronic obstructive pulmonary disease. 4. History of hepatitis was treated in the past. 5. Anxiety. 6. Depression. 7. Osteoporosis. PLAN: Patient has gone for surgery. See orders for further details. Plan Plan For more details regarding further plans, please refer to the orders. ALEXANDRA SWANSON MD Oct 26, 2018 09:37
[2018-10-26] MEDS ORDERED: EPINEPHrine SYRINGE 1 MG/10 ML SYRINGE ONE (10:36)
[2018-10-26] MEDS ORDERED: ePHEDrine PF IN SALINE 50 MG/10 ML SYRINGE. IV ONE (10:36)
[2018-10-26] MEDS: fentaNYL PF VIAL 100 MCG/2 ML VIAL IV PRN ×3 (11:27→16:09)
[2018-10-26] MEDS ORDERED: MORPHINE SULFATE 2 MG/ML VIAL. ONE (11:42)
--- NOTE | 2018-10-26 12:04 | PDOC4 ---
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 Estimated blood loss: 150 mL Complications: None Specimens: Femoral head to pathology Operative indications: Please refer to my detailed consultation note for operative indications Operative text: Patient was identified procedure verified patient placed in the supine position on the operating table. After adequate amounts of general endot boom anesthesia were administered she underwent straight catheterization and then was placed in the right side up decubitus position using the Stulberg hip positioner and right hip was prepped and draped in standard sterile fashion. After timeout was performed patient procedure identified and verified a standard posterior approach was carried out to the right hip with a curvilinear incision centered over the greater trochanter iliotibial band and gluteal fascia were split in line with their fibers Charnley retractor was placed external rotators were divided from their insertion and the hip capsule was split in a T fashion the hip was dislocated and proximal femoral cut was made with the cutting guide acetabulum was exposed contents of the fovea and labrum were excised and reaming was carried out up to a size 53 with a 54 [employer] sticktight coated hemispherical cluster hole cup which was impacted in proper version and a single screw was placed superiorly. A 36 mm standard liner with no elevation was impacted in place femur was then prepared with the box osteotome and reaming and broaching up to a size 12 and leg length and offset were restored with a standard offset trial with a +436 mm head excellent stability was noted to 75� internal rotation at 90� hip flexion leg lengths appeared to be restored anatomically as opposed to her previous shortening. Trial components were jeevan billy thorough irrigation carried out normal saline solution and a size 12 Synergy porous coated implant standard offset was impacted into place with a +4 36 mm Oxinium femoral head. Similar stability leg length and offset were obtained post reduction Hemovac drain and pain catheter were placed pain catheter mixture was injected throughout the joint capsule hip capsule was closed with #5 Ethibond suture and external rotator attachments transosseous with #5 Ethibond. Hip capsule was closed with Ethibond suture reinforced with #1 PDS strata fix subcutaneous closure with buried Vicryl suture subcuticular 3-0 Monocryl strata fix and a veena dressing with Acticoat was placed. Patient was returned recovery room in stable condition having tolerated procedure well Mirella portillo was present for the procedure and assisted in the positioning draping prepping retraction and skin closure LIVE ROSAS MD Oct 26, 2018 12:04
[2018-10-26] MEDS: IV NORMAL SALINE 1000ML BAG 1,000 ML IV SCH (12:14)
[2018-10-26] MEDS ORDERED: 0.9 % SODIUM CHLORIDE 10 ML DISP.SYRIN. IV PRN (12:15)
[2018-10-26] MEDS ORDERED: IV DEXTROSE 5% 250 ML BAG. IV PRN (12:15)
[2018-10-26] MEDS ORDERED: CALCIUM CARBONATE 500 MG TAB.CHEW PO PRN (12:15)
[2018-10-26] MEDS ORDERED: DEXTROSE 50% 25 GM / 50ML DISP.SYRIN. IV PRN (12:15)
[2018-10-26] MEDS ORDERED: ZOLPIDEM 5 MG TABLET. PO PRN (12:15)
[2018-10-26] MEDS ORDERED: diphenhydrAMINE 50 MG/ML VIAL IV PRN (12:15)
[2018-10-26] MEDS ORDERED: PROCHLORPERAZINE 5 MG TABLET. PO PRN (12:15)
[2018-10-26] MEDS ORDERED: ceFAZolin SODIUM IV Push 1 GM VIAL. IVP SCH (12:30)
--- NOTE | 2018-10-26 13:24 | RAD ---
Examination: HIP RIGHT 2V WITH PELVIS History: Total hip arthropathy postoperative Comparison/Correlation: 10/22/2018 right hip x-ray exam Findings: Frontal view pelvis, frontal view right hip, and crosstable lateral view of the right hip were obtained. Right hip joint prosthesis is intact. Right-sided drainage catheter tubing is noted terminating at the right hip level. Minimal gas within soft tissues noted. Vascular calcifications are present. Impression: Postoperative total right hip joint arthroplasty. No evidence of loosening. No fracture. Electronically signed by: Esvin Reed MD (10/26/2018 1:21 PM) [facility]
[2018-10-26] MEDS: POTASSIUM CHLORIDE 20 MEQ TABLET.ER. PO SCH (13:28)
[2018-10-26] MEDS: GABAPENTIN 300 MG CAPSULE. PO SCH ×3 (13:28→21:29)
[2018-10-26] MEDS: SUCRALFATE 1 GM TABLET. PO SCH ×2 (13:28→14:28)
[2018-10-26] MEDS: SERTRALINE 50 MG TABLET. PO SCH (13:29)
[2018-10-26] MEDS: rOPINIRole 1 MG TABLET. PO SCH (13:29)
[2018-10-26] MEDS: PANTOPRAZOLE 40 MG TABLET.DR. PO SCH (13:29)
[2018-10-26] MEDS: CYANOCOBALAMIN (VITAMIN B-12) 1,000 MCG TABLET. PO SCH (13:30)
[2018-10-26] MEDS: NICOTINE 7MG PATCH. TD SCH (13:30)
[2018-10-26] MEDS: oxyCODONE/APAP 10/325 1 TAB TABLET PO PRN (14:45)
[2018-10-26] MEDS ORDERED: WARFARIN 5 MG TABLET. PO ONE (16:00)
[2018-10-26] MEDS: ceFAZolin SODIUM IV Push 1 GM VIAL. IVP SCH ×2 (16:08→21:29)
[2018-10-26] MEDS: FERROUS SULFATE 325 MG TABLET. PO SCH (16:08)
[2018-10-26] MEDS: KETOROLAC 30MG VIAL 30 MG, BUPIVACAINE MPF 0.25% 20 ML, EPINEPHrine 0.5 MG in TOTAL VOL... INT ART SCH (17:55)
[2018-10-26] MEDS: ONDANSETRON PF 4 MG/2 ML VIAL. IV SCH (18:00)
[2018-10-26] MEDS: ONDANSETRON ODT 4 MG TAB.RAPDIS. PO SCH (18:00)
--- NOTE | 2018-10-26 21:19 | CONS ---
DATE OF CONSULTATION: 10/26/2018 ORTHOPEDIC CONSULTATION REASON FOR CONSULTATION: Right hip pain. REQUESTING PHYSICIAN: Kesha Hernandez MD HISTORY OF PRESENT ILLNESS: The patient is a 68-year-old female that has previously seen me in [facility] with degenerative joint disease of the right hip. She also had some lumbar radiculopathy issues and we had previously discussed some nonoperative treatment options including hip injection in the more remote past. Hip pain had been increasing, but not severe enough to be intolerable at least both until a fall about 2 days ago where she was evaluated in the Emergency Department and showed advancement of her degenerative change with some avascular necrosis in the femoral head. She was admitted due to her severe pain and some concerns on MRI findings. PAST MEDICAL HISTORY: Significant for COPD, hypertension, depression, hyperlipidemia and a history of viral hepatitis. PAST SURGICAL HISTORY: Cervical spine surgery. ALLERGIES: SULFA AND DEMEROL. SOCIAL HISTORY: Independently ambulatory after the fall. She is a 1 pack per day smoker. Denies alcohol or drug use. MEDICATIONS: List is reviewed. FAMILY HISTORY: Significant for hepatitis C in her , but otherwise noncontributory. REVIEW OF SYSTEMS: Significant for severe right hip pain. She denies any chest pain, shortness of breath, recent fever, chills, other joint pain other than the right knee, which has been somewhat chronic. PHYSICAL EXAMINATION: GENERAL: Pleasant, cooperative 68-year-old female, alert and oriented, in no acute distress. EXTREMITIES: Examination of the right hip reveals markedly decreased range of motion of the right hip compared to the left, pain at really with any range of motion. She has some tenderness over the trochanteric bursa and a bruised area over the lateral aspect of her hip. Normal examination of the contralateral hip joint line tenderness, right knee more so than left. Ligaments are stable bilaterally as his patellofemoral tracking. Normal alignment, stability of bilateral ankles with intact motor function, distal pulses, sensation, reflexes, skin in both lower extremities throughout. She has about 1 cm shortening on the right side compared to the left and as far as leg length and does have some mild findings on straight leg raise, although it is difficult to elicit these with certainty because of the severe hip pain that she has precluding any further motion on the right hip. IMAGING: X-rays show some flattening of the femoral head and some superior subluxation due to the deformity. MRI shows a joint effusion and some signal change in the intertrochanteric area, although the radiology report indicates the possibility of an intertrochanteric fracture that is incomplete. Again, I think this is more just signal changes the x-ray and CT scan do not show any type of fracture at all, just the confirmed basically the avascular necrosis of the right femoral head. 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 TREATMENT PLAN: I went over with her the treatment options. Really, I believe she was due to the previous degenerative changes and now findings of avascular necrosis, really was progressing toward the need for a total hip arthroplasty. The recent fall a couple of days ago has given her significant pain and inability to ambulate. I went over with her that we can proceed when medically cleared for a total hip arthroplasty. However, she does have risk factors associated with that surgery including the possibility of infection, nerve or blood vessel damage irritation of the sciatic nerve, particularly in trying to equalize her leg lengths since the leg is short. I told her we can only lengthen it a certain amount. We talked about the possibility of instability, premature wear or loosening, medical or other aesthetic complications among others and these would be increased by her smoking history as well. I recommended cutting down on that for her general activity and health level in addition to the effects on the hip itself. She wishes to proceed as soon as that can be arranged to undergo total hip arthroplasty, having acknowledged the above risks, benefits, postoperative course. LIVE ROSAS MD DR: AIME/aleksandra JOB#: [id number] / [id number]
[2018-10-27] MEDS: oxyCODONE/APAP 10/325 1 TAB TABLET PO PRN ×4 (01:18→15:12)
[2018-10-27] MEDS: ONDANSETRON ODT 4 MG TAB.RAPDIS. PO SCH ×3 (01:18→12:00)
[2018-10-27 03:34] VITALS: BP 117/70
[2018-10-27] MEDS: ceFAZolin SODIUM IV Push 1 GM VIAL. IVP SCH (04:04)
[2018-10-27] MEDS: MORPHINE SULFATE 2 MG/ML VIAL. IV PRN ×7 (04:04→21:51)
[2018-10-27] MEDS ORDERED: MAGNESIUM HYDROXIDE 2,400 MG/30 ML ORAL.SUSP. PO PRN (06:00)
[2018-10-27] MEDS: ONDANSETRON PF 4 MG/2 ML VIAL. IV SCH ×3 (06:00→07:32)
[2018-10-27] MEDS: KETOROLAC 30MG VIAL 30 MG, BUPIVACAINE MPF 0.25% 20 ML, EPINEPHrine 0.5 MG in TOTAL VOL... INT ART SCH ×2 (06:00→06:21)
[2018-10-27] MEDS: PANTOPRAZOLE 40 MG TABLET.DR. PO SCH (06:22)
[2018-10-27] MEDS: SUCRALFATE 1 GM TABLET. PO SCH ×2 (06:22→17:41)
[2018-10-27] MEDS: HEPARIN for SUB-Q USE 5,000 UNIT/ML VIAL. SQ SCH (06:34)
[2018-10-27 07:00] VITALS: BP 82/58
--- NOTE | 2018-10-27 07:39 | NUR ---
Second dose not adm through intrarticular catheter as it was clotted off. WILNER notified. Addendum: 10/27/18 at 0743 by Annmarie Melendez RN Medication was wasted and witnessed by Pancho DARBY.
[2018-10-27 08:38] LABS: BASO % 0 % (0-3); EOS # 0.1 x10^3/uL (0.0-0.7); EOS % 1 % (0-3); HEMATOCRIT 32.7 % (36.0-47.0); LYMPH # 1.3 x10^3/uL (1.0-4.8); LYMPH % 14 % (24-48); MEAN CORPUSCULAR HEMOGLOBIN 31 pg (25-35); MEAN CORPUSCULAR HGB CONC 34 g/dL (31-37); MEAN CORPUSCULAR VOLUME 91 fL (79-100); MONO # 0.7 x10^3/uL (0.0-1.1); MONO % 7 % (0-9); NEUT # 7.3 x10^3/uL (1.8-7.7); NEUT % 77 % (31-73); PLATELET COUNT 176 x10^3/uL (140-400); RED CELL DISTRIBUTION WIDTH 17.1 % (11.5-14.5); WHITE BLOOD COUNT 9.4 x10^3/uL (4.0-11.0)
[2018-10-27] MEDS: LOSARTAN POTASSIUM 50 MG TABLET. PO SCH (08:40)
[2018-10-27] MEDS: DICLOFENAC SODIUM 1% TOPICAL GEL 100GM TUBE. TP SCH ×4 (08:40→21:52)
[2018-10-27] MEDS: SERTRALINE 50 MG TABLET. PO SCH (08:40)
[2018-10-27] MEDS: NICOTINE 7MG PATCH. TD SCH (08:41)
[2018-10-27] MEDS: FERROUS SULFATE 325 MG TABLET. PO SCH ×2 (08:43→17:41)
[2018-10-27] MEDS: CYANOCOBALAMIN (VITAMIN B-12) 1,000 MCG TABLET. PO SCH (08:43)
[2018-10-27] MEDS: GABAPENTIN 300 MG CAPSULE. PO SCH ×3 (08:43→21:51)
[2018-10-27] MEDS: MELOXICAM 7.5 MG TABLET PO SCH (08:43)
[2018-10-27] MEDS: POTASSIUM CHLORIDE 20 MEQ TABLET.ER. PO SCH (08:43)
[2018-10-27] MEDS: ACETAMINOPHEN 500 MG TABLET PO SCH ×3 (08:44→21:51)
[2018-10-27] MEDS: SENNOSIDES/DOCUSATE 8.6/50MG TABLET. PO SCH (08:44)
[2018-10-27] MEDS: rOPINIRole 1 MG TABLET. PO SCH (08:44)
[2018-10-27] MEDS: MULTIVITAMIN with MINERAL TABLET. PO SCH (08:44)
[2018-10-27 08:55] LABS: PROTHROMBIN TIME PATIENT 13.3 SEC (11.7-14.0)
--- NOTE | 2018-10-27 09:09 | PDOC ---
IM PROGRESS NOTES- Subjective Subjective Has right hip pain Objective Vitals/I&O Vital Signs Date Time Temp Pulse Resp B/P (MAP) Pulse Ox O2 Delivery O2 Flow Rate FiO2 10/27/18 08:44 16 Nasal Cannula 2.0 10/27/18 08:44 74 82/58 10/27/18 07:00 98.7 96 98.7 I & O 10/26/18 10/26/18 10/27/18 14:59 22:59 06:59 Intake Total 1050 ml 540 ml Output Total 100 ml 100 ml 200 ml Balance 950 ml -100 ml 340 ml Physical Exam Physical Exam Vital signs are stable. Alert and oriented. In mild distress due to pain CARDIOVASCULAR: S1, S2. LUNGS: No wheezing. Clear to auscultation. ABDOMEN: Soft, no mass palpable. EXTERNAL GENITALIA: No Hu. RECTAL: Deferred. EXTREMITIES: The patient has pain in the right hip as well as going to the right lower leg, some wasting of the muscles and foot, no edema. NEUROLOGIC: No focal deficits. Labs Laboratory Tests Test 10/27/18 07:00 White Blood Count 9.4 x10^3/uL (4.0-11.0) Red Blood Count 3.60 x10^6/uL (3.50-5.40) Hemoglobin 11.0 g/dL (12.0-15.5) L Hematocrit 32.7 % (36.0-47.0) L Mean Corpuscular Volume 91 fL (79-100) Mean Corpuscular Hemoglobin 31 pg (25-35) Mean Corpuscular Hemoglobin Concent 34 g/dL (31-37) Red Cell Distribution Width 17.1 % (11.5-14.5) H Platelet Count 176 x10^3/uL (140-400) Neutrophils (%) (Auto) 77 % (31-73) H Lymphocytes (%) (Auto) 14 % (24-48) L Monocytes (%) (Auto) 7 % (0-9) Eosinophils (%) (Auto) 1 % (0-3) Basophils (%) (Auto) 0 % (0-3) Neutrophils # (Auto) 7.3 x10^3/uL (1.8-7.7) Lymphocytes # (Auto) 1.3 x10^3/uL (1.0-4.8) Monocytes # (Auto) 0.7 x10^3/uL (0.0-1.1) Eosinophils # (Auto) 0.1 x10^3/uL (0.0-0.7) Basophils # (Auto) 0.0 x10^3/uL (0.0-0.2) Prothrombin Time 13.3 SEC (11.7-14.0) Prothrombin Time INR 1.0 (0.8-1.1) Laboratory Tests 10/27/18 07:00 Meds Current Medications Medications (Trade) Dose Ordered Sig/Eduarda Route PRN Reason Start Time Stop Time Status Last Admin Dose Admin Morphine Sulfate (Morphine Sulfate) 2 mg PRN Q1HR PRN IV PAIN 10/26/18 12:15 10/27/18 06:34 Fentanyl Citrate (Fentanyl 2ml Vial) 25 mcg PRN Q1HR PRN IV PAIN, 2nd CHOICE 10/26/18 12:15 10/26/18 16:09 Warfarin Sodium (Coumadin) 5 mg 1X ONCE PO 10/26/18 16:00 10/26/18 16:01 DC 10/26/18 16:09 Multivitamins (Thera M Plus) 1 tab DAILY PO 10/27/18 09:00 10/27/18 08:44 Ferrous Sulfate (Feosol) 325 mg BIDWMEALS PO 10/26/18 17:00 10/27/18 08:44 Ketorolac Tromethamine 30 mg/Bupivacaine HCl 20 ml/ Epinephrine HCl 0.5 mg/ Miscellaneous 43 ml @ 258 mls/hr Q12H INT ART 10/26/18 18:00 10/27/18 06:09 DC 10/26/18 17:56 Acetaminophen (Tylenol) 1,000 mg Q6H PO 10/27/18 09:00 10/27/18 08:44 Meloxicam (Mobic) 15 mg DAILY PO 10/27/18 09:00 10/27/18 08:44 Ondansetron HCl (Zofran Odt) 4 mg Q6HRS PO 10/26/18 18:00 10/27/18 12:01 10/27/18 06:34 Cefazolin Sodium (Ancef) 1 gm Q6H IVP 10/26/18 15:30 10/27/18 03:31 DC 10/27/18 04:04 Assessment Assessment 1. Mechanical fall, right hip intertrochanteric fracture, nondisplaced. 2. 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 3. Chronic obstructive pulmonary disease. 4. History of hepatitis was treated in the past. 5. Anxiety. 6. Depression. 7. Osteoporosis. PLAN: Right hip pain- procedure Preoperative diagnosis: Degenerative joint disease right hip with avascular necr osis, sudden increase in pain status post recent fall Postoperative diagnosis: Same with flattening of femoral head no evidence of intertrochanteric fracture Anemia- hemoglobin decreased to 11, acute blood loss anemia. Monitor. Plan Plan For more details regarding further plans, please refer to the orders. ALEXANDRA SWANSON MD Oct 27, 2018 09:09
[2018-10-27 09:11] LABS: ALBUMIN 2.5 g/dL (3.4-5.0); ALBUMIN/GLOBULIN RATIO 0.7 (1.0-1.7); CALCIUM 8.9 mg/dL (8.5-10.1); CREATININE 0.8 mg/dL (0.6-1.0); GFR 71.8; POTASSIUM 4.3 mmol/L (3.5-5.1); TOTAL BILIRUBIN 0.2 mg/dL (0.2-1.0); TOTAL PROTEIN 5.9 g/dL (6.4-8.2)
[2018-10-27 10:42] VITALS: BP 122/56
--- NOTE | 2018-10-27 11:35 | NUR ---
Pharmacy Warfarin Dosing Note S: Pharmacy consulted to assist with anticoagulation therapy started 10/26/18 O: ALONSO BEAR is a 68 year old F with LYNN LABS: Last INR: 1.0 Last HGB: 11.0 Last HCT: 32.7 Last PLT: 176 Last dose of 5 mg given on 10/26/18 at 1602 Ongoing Drug Interactions: SERTRALINE, MELOXICAM A:INR of 1.0 is below desired range. Target range for this patient is: 1.6 - 2.5 P: Warfarin dose: 5 mg Today at 1600 Bridge Therapy: Heparin 5000 units q8h Next INR due 10/28/18 AM Pharmacy anticoagulation service will continue to follow. CORETTA RAJPUT [facility], 10/27/18 1575
[2018-10-27] MEDS ORDERED: ONDANSETRON PF 4 MG/2 ML VIAL. IV PRN (12:00)
[2018-10-27] MEDS ORDERED: ONDANSETRON ODT 4 MG TAB.RAPDIS. PO PRN (12:00)
[2018-10-27] MEDS: IV NORMAL SALINE 1000ML BAG 1,000 ML IV SCH (12:14)
[2018-10-27 14:44] VITALS: BP 103/55
--- NOTE | 2018-10-27 15:30 | NUR ---
IAC was removed by this RN from R hip per order to DC POD1. Patient tolerated procedure well.
--- NOTE | 2018-10-27 15:58 | NUR ---
Patient scheduled for both coumadin and heparin, Paged Dr. Bartholomew and got order to DC heparin. Orders placed.
[2018-10-27] MEDS ORDERED: BISACODYL 10 MG SUPP.RECT. PR PRN (16:00)
[2018-10-27] MEDS ORDERED: WARFARIN 5 MG TABLET. PO ONE (16:00)
--- NOTE | 2018-10-27 18:12 | NUR ---
Hemovac removed by this RN per DC order. Patient tolerated procedure well.
[2018-10-27 19:15] VITALS: BP 110/57
[2018-10-27 23:28] VITALS: BP 119/52
[2018-10-28] MEDS: MORPHINE SULFATE 2 MG/ML VIAL. IV PRN ×5 (02:25→23:42)
[2018-10-28 02:55] VITALS: BP 106/64
[2018-10-28] MEDS: ACETAMINOPHEN 500 MG TABLET PO SCH ×4 (03:00→21:21)
[2018-10-28] MEDS: oxyCODONE/APAP 10/325 1 TAB TABLET PO PRN (03:06)
[2018-10-28 04:58] LABS: BASO % 0 % (0-3); EOS # 0.2 x10^3/uL (0.0-0.7); EOS % 2 % (0-3); HEMATOCRIT 32.4 % (36.0-47.0); HEMOGLOBIN 10.7 g/dL (12.0-15.5); LYMPH # 1.2 x10^3/uL (1.0-4.8); LYMPH % 12 % (24-48); MEAN CORPUSCULAR HEMOGLOBIN 30 pg (25-35); MEAN CORPUSCULAR HGB CONC 33 g/dL (31-37); MEAN CORPUSCULAR VOLUME 92 fL (79-100); MONO # 0.6 x10^3/uL (0.0-1.1); MONO % 6 % (0-9); NEUT # 7.9 x10^3/uL (1.8-7.7); NEUT % 79 % (31-73); PLATELET COUNT 156 x10^3/uL (140-400); RED BLOOD COUNT 3.52 x10^6/uL (3.50-5.40); WHITE BLOOD COUNT 9.9 x10^3/uL (4.0-11.0)
[2018-10-28 05:03] LABS: PROTHROMBIN TIME PATIENT 18.1 SEC (11.7-14.0)
[2018-10-28 05:11] LABS: CALCIUM 8.8 mg/dL (8.5-10.1); CREATININE 0.8 mg/dL (0.6-1.0); GFR 71.8; POTASSIUM 4.7 mmol/L (3.5-5.1)
[2018-10-28] MEDS: SUCRALFATE 1 GM TABLET. PO SCH ×2 (06:26→17:16)
[2018-10-28] MEDS: PANTOPRAZOLE 40 MG TABLET.DR. PO SCH (06:26)
[2018-10-28 07:00] VITALS: BP 116/64
[2018-10-28] MEDS: oxyCODONE IR 5 MG TABLET PO PRN ×2 (09:07→21:21)
[2018-10-28] MEDS: GABAPENTIN 300 MG CAPSULE. PO SCH ×3 (09:10→21:22)
[2018-10-28] MEDS: POTASSIUM CHLORIDE 20 MEQ TABLET.ER. PO SCH (09:10)
[2018-10-28] MEDS: NICOTINE 7MG PATCH. TD SCH (09:10)
[2018-10-28] MEDS: FERROUS SULFATE 325 MG TABLET. PO SCH ×2 (09:11→17:16)
[2018-10-28] MEDS: SERTRALINE 50 MG TABLET. PO SCH (09:11)
[2018-10-28] MEDS: MULTIVITAMIN with MINERAL TABLET. PO SCH (09:11)
[2018-10-28] MEDS: rOPINIRole 1 MG TABLET. PO SCH (09:11)
[2018-10-28] MEDS: LOSARTAN POTASSIUM 50 MG TABLET. PO SCH (09:11)
[2018-10-28] MEDS: SENNOSIDES/DOCUSATE 8.6/50MG TABLET. PO SCH (09:11)
[2018-10-28] MEDS: CYANOCOBALAMIN (VITAMIN B-12) 1,000 MCG TABLET. PO SCH (09:12)
[2018-10-28] MEDS: DICLOFENAC SODIUM 1% TOPICAL GEL 100GM TUBE. TP SCH ×5 (09:13→21:23)
[2018-10-28] MEDS: MELOXICAM 7.5 MG TABLET PO SCH (09:13)
--- NOTE | 2018-10-28 09:58 | PDOC ---
PROGRESS NOTES Subjective Subjective pt feels good Objective Objective Vital Signs Date Time Temp Pulse Resp B/P (MAP) Pulse Ox O2 Delivery O2 Flow Rate FiO2 10/28/18 09:22 65 116/64 10/28/18 09:22 94 Nasal Cannula 2.0 10/28/18 07:00 98.0 18 98.0 l Intake and Output 10/28/18 06:59 Intake Total 1090 ml Output Total 150 ml Balance 940 ml Intake Oral 1090 ml Output Urine Total 150 ml # Voids 4 Physical Exam Abdomen: Normal bowel sounds, Soft Heart: Regular rate, Normal S1, Normal S2 Extremities: No clubbing General: Alert HEENT: Atraumatic MUSCULOSKELETAL: No deformity Neck: Supple Neuro: Normal speech Psych/Mental Status: Mental status NL Skin: No breakdown Assessment Assessment 1. Mechanical fall, right hip intertrochanteric fracture, nondisplaced. 2. 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 3. Chronic obstructive pulmonary disease. 4. History of hepatitis was treated in the past. 5. Anxiety. 6. Depression. 7. Osteoporosis. PLAN:POD#2. Surgery: 10/26/2018 Preoperative diagnosis: Degenerative joint disease right hip with avascular necrosis, sudden increase in pain status post recent fall Postoperative diagnosis: Same with flattening of femoral head no evidence of intertrochanteric fracture Operative procedure: Right total hip arthroplasty feels good want to go home with home health d/c plans in 1-2 days Comment Review of Relevant I have reviewed the following items yaima (where applicable) has been applied. Labs Laboratory Tests Test 10/28/18 04:20 White Blood Count 9.9 x10^3/uL (4.0-11.0) Red Blood Count 3.52 x10^6/uL (3.50-5.40) Hemoglobin 10.7 g/dL (12.0-15.5) Hematocrit 32.4 % (36.0-47.0) Mean Corpuscular Volume 92 fL (79-100) Mean Corpuscular Hemoglobin 30 pg (25-35) Mean Corpuscular Hemoglobin Concent 33 g/dL (31-37) Red Cell Distribution Width 17.0 % (11.5-14.5) Platelet Count 156 x10^3/uL (140-400) Neutrophils (%) (Auto) 79 % (31-73) Lymphocytes (%) (Auto) 12 % (24-48) Monocytes (%) (Auto) 6 % (0-9) Eosinophils (%) (Auto) 2 % (0-3) Basophils (%) (Auto) 0 % (0-3) Neutrophils # (Auto) 7.9 x10^3/uL (1.8-7.7) Lymphocytes # (Auto) 1.2 x10^3/uL (1.0-4.8) Monocytes # (Auto) 0.6 x10^3/uL (0.0-1.1) Eosinophils # (Auto) 0.2 x10^3/uL (0.0-0.7) Basophils # (Auto) 0.0 x10^3/uL (0.0-0.2) Prothrombin Time 18.1 SEC (11.7-14.0) Prothromb Time International Ratio 1.5 (0.8-1.1) Sodium Level 133 mmol/L (136-145) Potassium Level 4.7 mmol/L (3.5-5.1) Chloride Level 99 mmol/L (98-107) Carbon Dioxide Level 31 mmol/L (21-32) Anion Gap 3 (6-14) Blood Urea Nitrogen 14 mg/dL (7-20) Creatinine 0.8 mg/dL (0.6-1.0) Estimated GFR (Cockcroft-Gault) 71.8 Glucose Level 136 mg/dL (70-99) Calcium Level 8.8 mg/dL (8.5-10.1) Medications Current Medications Bisacodyl (Dulcolax Supp) 10 mg 1X PRN PRN [place] CONSTIPATION; Start 10/27/18 at 16:00; Stop 10/28/18 at 15:59 Ondansetron HCl (Zofran Odt) 4 mg PRN Q6HRS PRN PO Nausea/vomiting, 1st choice; Start 10/27/18 at 12:00 Ondansetron HCl (Zofran) 4 mg PRN Q6HRS PRN IV Nausea/vomiting, 1st choice; Start 10/27/18 at 12:00 Warfarin Sodium (Coumadin) 5 mg 1X WARF ONCE PO Last administered on 10/27/18at 16:01; Start 10/27/18 at 16:00; Stop 10/27/18 at 16:01; Status DC Vitals/I & O Vital Sign - Last 24 Hours 10/27/18 10/27/18 10/27/18 10/27/18 10:42 11:27 11:27 12:44 Temp 98.7 98.7 Pulse 75 Resp 18 16 16 16 B/P (MAP) 122/56 (78) Pulse Ox 92 O2 Delivery Nasal Cannula Nasal Cannula Nasal Cannula Nasal Cannula O2 Flow Rate 2.0 2.0 2.0 2.0 10/27/18 10/27/18 10/27/18 10/27/18 12:44 13:30 13:30 14:44 Temp 98.0 98.0 Pulse 73 Resp 16 18 18 18 B/P (MAP) 103/55 (71) Pulse Ox 87 O2 Delivery Nasal Cannula Nasal Cannula Nasal Cannula Nasal Cannula O2 Flow Rate 2.0 2.0 2.0 2.0 10/27/18 10/27/18 10/27/18 10/27/18 15:05 15:12 16:01 16:01 Resp 16 16 16 16 O2 Delivery Nasal Cannula Nasal Cannula Nasal Cannula Nasal Cannula O2 Flow Rate 2.0 2.0 2.0 2.0 10/27/18 10/27/18 10/27/18 10/27/18 16:08 17:39 19:15 20:00 Temp 98.1 98.1 Pulse 74 Resp 16 16 18 B/P (MAP) 110/57 (74) Pulse Ox 92 O2 Delivery Nasal Cannula Nasal Cannula Nasal Cannula Nasal Cannula O2 Flow Rate 2.0 2.0 2.0 2.0 10/27/18 10/28/18 10/28/18 10/28/18 23:28 02:55 07:00 09:06 Temp 98.7 99.4 98.0 98.7 99.4 98.0 Pulse 67 74 65 Resp 18 18 18 B/P (MAP) 119/52 (74) 106/64 (78) 116/64 (81) Pulse Ox 93 94 94 94 O2 Delivery Nasal Cannula Nasal Cannula Nasal Cannula Nasal Cannula O2 Flow Rate 3.0 3.0 2.0 2.0 10/28/18 10/28/18 09:22 09:22 Pulse 65 B/P (MAP) 116/64 Pulse Ox 94 O2 Delivery Nasal Cannula O2 Flow Rate 2.0 Intake and Output 10/27/18 10/27/1810/28/19 14:59 22:59 06:59 Intake Total 500 ml 590 ml Output Total 150 ml Balance 350 ml 590 ml ROBINSON BOLIVAR MD Oct 28, 2018 09:58
--- NOTE | 2018-10-28 10:33 | NUR ---
SS following for discharge planning. SS reviewed pt chart. Pt is from home and is currently requiring oxygen. PT/OT recommended [facility] unit at discharge. SS met with pt to discuss [facility] unit and discharge planning. Pt reported that she does not want to go to [facility] unit at discharge. Pt reported that when her mother was alive she placed her mother in m[facility] units and had terrible experiences. Pt reported that she would prefer to return to home with home healthcare and was agreeable to home healthcare. Pt reported that she feels she will progress and will be able to discharge to home with home healthcare.
[2018-10-28 11:00] VITALS: BP 139/72
--- NOTE | 2018-10-28 11:02 | NUR ---
Pharmacy Warfarin Dosing Note S: Pharmacy consulted to assist with anticoagulation therapy started 10/26/18 O: ALONSO BEAR is a 68 year old F with LYNN LABS: Last INR: 1.5 Last HGB: 10.7 Last HCT: 32.4 Last PLT: 156 Last dose of 5 mg given on 10/27/18 at 1601 Ongoing Drug Interactions: SERTRALINE, MELOXICAM A:INR of 1.5 is below desired range. Target range for this patient is: 1.6 - 2.5 P: Warfarin dose: 2 mg Today at 1600 Bridge Therapy: None Next INR due 10/29/18 AM Pharmacy anticoagulation service will continue to follow. CORETTA RAJPUT [facility], 10/28/18 [id number]
[2018-10-28] MEDS: ALBUTEROL SULFATE 2.5 MG/3 ML NEBU. NEB SCH ×3 (12:39→19:41)
[2018-10-28] MEDS: fentaNYL PF VIAL 100 MCG/2 ML VIAL IV PRN (12:56)
[2018-10-28] MEDS: IV NORMAL SALINE 1000ML BAG 1,000 ML IV SCH (13:04)
[2018-10-28 15:00] VITALS: BP 126/68
[2018-10-28] MEDS ORDERED: WARFARIN 2 MG TABLET. PO ONE (16:00)
[2018-10-28 19:00] VITALS: BP 116/58
[2018-10-28] MEDS: ZOLPIDEM 5 MG TABLET. PO PRN (21:21)
[2018-10-28 23:00] VITALS: BP 140/78
[2018-10-29 03:00] VITALS: BP 122/77
[2018-10-29] MEDS: ACETAMINOPHEN 500 MG TABLET PO SCH ×4 (03:00→21:00)
--- NOTE | 2018-10-29 03:04 | NUR ---
3am dose of Tylenol held. Patient over max dose for 24 hours. Will continue to monitor.
[2018-10-29] MEDS: MORPHINE SULFATE 2 MG/ML VIAL. IV PRN ×4 (03:46→19:58)
[2018-10-29 05:53] LABS: HEMATOCRIT 32.9 % (36.0-47.0); HEMOGLOBIN 10.8 g/dL (12.0-15.5)
[2018-10-29 06:47] LABS: PROTHROMBIN TIME PATIENT 17.5 SEC (11.7-14.0)
[2018-10-29 07:00] VITALS: BP 176/84
[2018-10-29] MEDS: ALBUTEROL SULFATE 2.5 MG/3 ML NEBU. NEB SCH ×4 (07:42→19:28)
[2018-10-29] MEDS: MELOXICAM 7.5 MG TABLET PO SCH (08:51)
[2018-10-29] MEDS: SENNOSIDES/DOCUSATE 8.6/50MG TABLET. PO SCH (08:53)
[2018-10-29] MEDS: rOPINIRole 1 MG TABLET. PO SCH (08:53)
[2018-10-29] MEDS: oxyCODONE IR 5 MG TABLET PO PRN (08:53)
[2018-10-29] MEDS: MULTIVITAMIN with MINERAL TABLET. PO SCH (08:53)
[2018-10-29] MEDS: CYANOCOBALAMIN (VITAMIN B-12) 1,000 MCG TABLET. PO SCH (08:53)
[2018-10-29] MEDS: PANTOPRAZOLE 40 MG TABLET.DR. PO SCH (08:53)
[2018-10-29] MEDS: LOSARTAN POTASSIUM 50 MG TABLET. PO SCH (08:53)
[2018-10-29] MEDS: FERROUS SULFATE 325 MG TABLET. PO SCH ×2 (08:53→17:17)
[2018-10-29] MEDS: GABAPENTIN 300 MG CAPSULE. PO SCH ×3 (08:54→21:22)
[2018-10-29] MEDS: SERTRALINE 50 MG TABLET. PO SCH (08:54)
[2018-10-29] MEDS: POTASSIUM CHLORIDE 20 MEQ TABLET.ER. PO SCH (08:54)
[2018-10-29] MEDS: SUCRALFATE 1 GM TABLET. PO SCH ×2 (08:54→17:17)
[2018-10-29] MEDS: NICOTINE 7MG PATCH. TD SCH (08:55)
--- NOTE | 2018-10-29 10:09 | PDOC ---
PROGRESS NOTES Subjective Subjective in pain today Objective Objective Vital Signs Date Time Temp Pulse Resp B/P (MAP) Pulse Ox O2 Delivery O2 Flow Rate FiO2 10/29/18 08:59 Nasal Cannula 2.5 10/29/18 08:59 73 176/84 10/29/18 07:45 98 10/29/18 07:00 98.2 16 98.2 Intake and Output 10/29/18 06:59 Intake Total 1320 ml Output Total 600 ml Balance 720 ml Intake Oral 360 ml IV Total 480 ml Other 480 ml Output Urine Total 600 ml # Voids 2 Physical Exam Abdomen: Normal bowel sounds, Soft Heart: Regular rate, Normal S1, Normal S2 Extremities: No clubbing General: Alert HEENT: Atraumatic MUSCULOSKELETAL: No deformity Neck: Supple Neuro: Normal speech Psych/Mental Status: Mental status NL Skin: No breakdown Assessment Assessment 1. Mechanical fall, right hip intertrochanteric fracture?. 2. 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 3. Chronic obstructive pulmonary disease. 4. History of hepatitis was treated in the past. 5. Anxiety. 6. Depression. 7. Osteoporosis. PLAN:POD#3. Surgery: 10/26/2018 Preoperative diagnosis: Degenerative joint disease right hip with avascular necrosis, sudden increase in pain status post recent fall Postoperative diagnosis: Same with flattening of femoral head no evidence of intertrochanteric fracture Operative procedure: Right total hip arthroplasty inc pain meds. d/c to rehab/snu d/c plans in 1-2 days. spoke with case manger Comment Review of Relevant I have reviewed the following items yaima (where applicable) has been applied. Labs Laboratory Tests Test 10/29/18 05:30 Hemoglobin 10.8 g/dL (12.0-15.5) Hematocrit 32.9 % (36.0-47.0) Mean Corpuscular Hemoglobin Concent 33 g/dL (31-37) Prothrombin Time 17.5 SEC (11.7-14.0) Prothromb Time International Ratio 1.5 (0.8-1.1) Medications Current Medications Warfarin Sodium (Coumadin) 2 mg 1X WARF ONCE PO Last administered on 10/28/18at 17:17; Start 10/28/18 at 16:00; Stop 10/28/18 at 16:01; Status DC Vitals/I & O Vital Sign - Last 24 Hours 10/28/18 10/28/18 10/28/18 10/28/18 11:00 11:25 12:40 12:57 Temp 98.0 98.0 Pulse 77 Resp 18 B/P (MAP) 139/72 (94) Pulse Ox 93 94 94 95 O2 Delivery Nasal Cannula Nasal Cannula Nasal Cannula Nasal Cannula O2 Flow Rate 2.0 2.0 2.0 2.0 10/28/18 10/28/18 10/28/18 10/28/18 15:00 15:11 16:06 17:20 Temp 98.2 98.2 Pulse 70 Resp 18 B/P (MAP) 126/68 (87) Pulse Ox 94 95 94 94 O2 Delivery Nasal Cannula Nasal Cannula Nasal Cannula Nasal Cannula O2 Flow Rate 2.0 2.0 2.0 2.0 10/28/18 10/28/18 10/28/18 10/28/18 19:00 19:12 19:43 20:05 Temp 98.8 98.8 Pulse 66 Resp 20 B/P (MAP) 116/58 (77) Pulse Ox 95 94 96 O2 Delivery Nasal Cannula Nasal Cannula Nasal Cannula O2 Flow Rate 2.0 2.0 2.0 10/28/18 10/28/18 10/28/18 10/28/18 20:23 21:22 22:43 22:44 Resp 20 20 20 20 O2 Delivery Nasal Cannula Nasal Cannula Nasal Cannula Nasal Cannula O2 Flow Rate 2.5 2.5 2.5 2.5 10/28/18 10/28/18 10/29/18 10/29/18 23:00 23:44 00:15 03:00 Temp 98.7 98.4 98.7 98.4 Pulse 74 69 Resp 16 20 20 18 B/P (MAP) 140/78 (98) 122/77 (92) Pulse Ox 92 96 O2 Delivery Nasal Cannula Nasal Cannula O2 Flow Rate 2.5 2.5 10/29/18 10/29/18 10/29/18 10/29/18 03:46 05:37 06:21 07:00 Temp 98.2 98.2 Pulse 73 Resp 20 20 20 16 B/P (MAP) 176/84 (114) Pulse Ox 94 O2 Delivery Nasal Cannula Nasal Cannula Nasal Cannula Room Air O2 Flow Rate 2.5 2.5 2.5 10/29/18 10/29/18 10/29/1817/19 07:45 08:40 08:59 08:59 Pulse 73 B/P (MAP) 176/84 Pulse Ox 98 O2 Delivery Nasal Cannula Nasal Cannula Nasal Cannula O2 Flow Rate 2.0 2.5 2.5 Intake and Output 10/28/18 10/28/18 10/29/18 14:59 22:59 06:59 Intake Total 360 ml 960 ml Output Total 600 ml Balance 360 ml 360 ml ROBINSON BOLIVAR MD Oct 29, 2018 10:09
--- NOTE | 2018-10-29 10:40 | PDOC ---
PROGRESS NOTES Subjective Subjective Problems overnight: He is doing much better walking but complains of pain and cramping sensation around the right hip even just resting and better particularly on starting up her activity. Says pain medicine is not adequate Objective Vital Signs Vital Signs Date Time Temp Pulse Resp B/P (MAP) Pulse Ox O2 Delivery O2 Flow Rate FiO2 10/29/18 08:59 Nasal Cannula 2.5 10/29/18 08:59 73 176/84 10/29/18 07:45 98 10/29/18 07:00 98.2 16 98.2 Physical Exam On examination her veena dressing looks excellent. Leg lengths appeared equal distal neurovascular status is intact she has excellent range of motion stability and appears to have some muscular spasm about the hip area no tenderness on palpation or weightbearing through an extended extremity Labs Laboratory Tests Test 10/28/18 04:20 10/29/18 05:30 White Blood Count 9.9 x10^3/uL (4.0-11.0) Red Blood Count 3.52 x10^6/uL (3.50-5.40) Hemoglobin 10.7 g/dL (12.0-15.5) 10.8 g/dL (12.0-15.5) Hematocrit 32.4 % (36.0-47.0) 32.9 % (36.0-47.0) Mean Corpuscular Volume 92 fL (79-100) Mean Corpuscular Hemoglobin 30 pg (25-35) Mean Corpuscular Hemoglobin Concent 33 g/dL (31-37) 33 g/dL (31-37) Red Cell Distribution Width 17.0 % (11.5-14.5) Platelet Count 156 x10^3/uL (140-400) Neutrophils (%) (Auto) 79 % (31-73) Lymphocytes (%) (Auto) 12 % (24-48) Monocytes (%) (Auto) 6 % (0-9) Eosinophils (%) (Auto) 2 % (0-3) Basophils (%) (Auto) 0 % (0-3) Neutrophils # (Auto) 7.9 x10^3/uL (1.8-7.7) Lymphocytes # (Auto) 1.2 x10^3/uL (1.0-4.8) Monocytes # (Auto) 0.6 x10^3/uL (0.0-1.1) Eosinophils # (Auto) 0.2 x10^3/uL (0.0-0.7) Basophils # (Auto) 0.0 x10^3/uL (0.0-0.2) Prothrombin Time 18.1 SEC (11.7-14.0) 17.5 SEC (11.7-14.0) Prothromb Time International Ratio 1.5 (0.8-1.1) 1.5 (0.8-1.1) Sodium Level 133 mmol/L (136-145) Potassium Level 4.7 mmol/L (3.5-5.1) Chloride Level 99 mmol/L (98-107) Carbon Dioxide Level 31 mmol/L (21-32) Anion Gap 3 (6-14) Blood Urea Nitrogen 14 mg/dL (7-20) Creatinine 0.8 mg/dL (0.6-1.0) Estimated GFR (Cockcroft-Gault) 71.8 Glucose Level 136 mg/dL (70-99) Calcium Level 8.8 mg/dL (8.5-10.1) Laboratory Tests Test 10/29/18 05:30 Hemoglobin 10.8 g/dL (12.0-15.5) Hematocrit 32.9 % (36.0-47.0) Mean Corpuscular Hemoglobin Concent 33 g/dL (31-37) Prothrombin Time 17.5 SEC (11.7-14.0) Prothromb Time International Ratio 1.5 (0.8-1.1) Imaging Postop x-rays show essentially equal leg lengths well placed total hip arthroplasty implant Assessment Assessment POD# total hip arthroplasty for avascular necrosis and hip contusion Plan Plan of Care Continue weightbearing as tolerated with standard total hip precautions I recommended that she undergo physical therapy with the joint center regimen status post her total hip I'm going to also start her on some muscle relaxant medicine as I think her main issues rather than pain exactly is due to muscle spasm Continue Coumadin anticoagulation LIVE ROSAS MD Oct 29, 2018 10:39
[2018-10-29 11:00] VITALS: BP 157/56
[2018-10-29] MEDS: DICLOFENAC SODIUM 1% TOPICAL GEL 100GM TUBE. TP SCH ×3 (13:00→21:34)
[2018-10-29] MEDS ORDERED: methylPREDNISolone ACETATE 40 MG/ML VIAL. IM ONE (13:00)
[2018-10-29] MEDS ORDERED: BUPIVACAINE MPF 0.25% 10 ML VIAL. IJ ONE (13:00)
--- NOTE | 2018-10-29 13:17 | NUR ---
SS following up with discharge planning. Pt now agreeable to half-way unit at discharge. SS met with pt to discuss half-way unit and discharge planning. Pt reported that she and her son live in [place] and would prefer to go to half-way unit in [place], [place]. SS provided pt with options in [place], [place]. Pt reported that [facility] was near her home and requested referral be phoned and faxed to [facility], ; fax [phone]. SS phoned and faxed referral to [facility]. SS will await acceptance decision and will proceed accordingly with discharge planning.
[2018-10-29] MEDS: oxyCODONE/APAP 10/325 1 TAB TABLET PO PRN ×2 (14:52→21:49)
[2018-10-29 15:00] VITALS: BP 203/100
[2018-10-29] MEDS ORDERED: WARFARIN 3 MG TABLET. PO ONE (15:00)
--- NOTE | 2018-10-29 15:32 | NUR ---
Dr. Hernandez paged re: BP 189/94, HR 86
--- NOTE | 2018-10-29 16:59 | NUR ---
Dr. Hernandez returned call, orders received.
[2018-10-29] MEDS ORDERED: cloNIDine HCL 0.1 MG TABLET PO PRN (17:15)
[2018-10-29] MEDS ORDERED: cloNIDine HCL 0.1 MG TABLET PO SCH (17:30)
[2018-10-29 19:00] VITALS: BP 163/81
[2018-10-29] MEDS: CYCLOBENZAPRINE 10 MG TABLET. PO PRN (19:53)
--- NOTE | 2018-10-29 21:00 | NUR ---
2100 dose of Tylenol held. Patient using more Percocet today.
[2018-10-29] MEDS: ZOLPIDEM 5 MG TABLET. PO PRN (21:22)
[2018-10-29 22:49] VITALS: BP 160/83
--- NOTE | 2018-10-29 22:54 | CONS ---
DATE OF CONSULTATION: 10/29/2018 ATTENDING PHYSICIAN: Kesha Hernandez MD REASON FOR CONSULTATION: The patient was seen at the request of Dr. Hernandez for rehab evaluation. HISTORY OF PRESENT ILLNESS: This is a 68-year-old female with aseptic necrosis of right femoral head. The patient had steroid injections in the past without any lasting help, had a fall on 10/23/2018 and since then having increasing pain in her right hip area. The patient was admitted on 10/25/2018 and she underwent right total hip arthroplasty. MRI scan showed possible intertrochanteric fracture, but no evidence of intertrochanteric fracture was noted at the time of surgery. The patient postop complains of pain in her right hip area. The patient is participating in physical therapy. She also admits some lower back pain, which is chronic. PAST MEDICAL HISTORY: Includes chronic obstructive pulmonary disease, hypertension, hyperlipidemia, depression, viral hepatitis. ALLERGIES: Known allergic TO DEMEROL, SULFA. PAST SURGICAL HISTORY: The patient had surgery to cervical spine for treatment of cervical spinal stenosis in the past. SOCIAL HISTORY: She still smokes 1 pack of cigarettes per day. Lives alone. No steps for her to manage. MEDICATIONS: The patient usually takes Percocet 10/325 mg for pain control. She takes ropinirole for restless leg syndrome. PHYSICAL EXAMINATION: GENERAL: Revealed a middle-aged female. She is alert, in no acute distress. MUSCULOSKELETAL: The patient had painful limited movements of her lumbar spine and right hip. Tenderness to palpation over right and left sacroiliac joint area and straight leg raising test is negative bilaterally. She had some petechial skin lesions over the inner aspect of right thigh. The patient had overall 4+/5 grade muscle strength and deep tendon reflexes are exaggerated more so on the left side. She had equal perception of touch and pinprick sensation bilaterally. She is somewhat tired right now, so I have not tested her transfers or ambulation skills, but she is independent, rolling from side to side. She had dressing to her right buttock area. ASSESSMENT: 1. A middle-aged female status post right total hip arthroplasty for treatment of painful degenerative joint disease of right hip with aseptic necrosis with increased pain since the fall last week. 2. The patient also with previous cervical spine surgery with residual hyperreflexia in her lower extremities and some ataxia. 3. Chronic obstructive pulmonary disease. 4. Hypertension. 5. Hyperlipidemia. 6. Depression. 7. History of viral hepatitis. 8. Degenerative joint disease of her knees, left side more than right side. She had crepitus on range of motion of her knee joint with mild left knee joint effusion. RECOMMENDATIONS: Agree with the plan for physical therapy and occupational therapy and transfer to residential care unit for continued care until she feels confident with her mobility and self-care skills as she lives alone. Dr. Hernandez, I appreciate asking me to participate in the care of this interesting patient. She would like to have injection to her back pain to proceed with trigger point injection to her right sacroiliac joint area if no contraindications before she go to residential care unit. I will be glad to see her for followup with you on as needed basis. GREG MITCHELL MD DR: KERMIT/nts JOB#: [id number] / [id number]
[2018-10-30 03:00] VITALS: BP 150/89
[2018-10-30] MEDS: ACETAMINOPHEN 500 MG TABLET PO SCH ×2 (03:19→08:51)
[2018-10-30] MEDS: MORPHINE SULFATE 2 MG/ML VIAL. IV PRN ×2 (03:23→08:53)
[2018-10-30 06:55] LABS: HEMATOCRIT 31.4 % (36.0-47.0); HEMOGLOBIN 10.5 g/dL (12.0-15.5)
[2018-10-30 07:00] VITALS: BP 169/88
[2018-10-30 07:22] LABS: PROTHROMBIN TIME PATIENT 16.8 SEC (11.7-14.0)
[2018-10-30] MEDS: CYANOCOBALAMIN (VITAMIN B-12) 1,000 MCG TABLET. PO SCH (08:51)
[2018-10-30] MEDS: FERROUS SULFATE 325 MG TABLET. PO SCH (08:51)
[2018-10-30] MEDS: MELOXICAM 7.5 MG TABLET PO SCH (08:51)
[2018-10-30] MEDS: SERTRALINE 50 MG TABLET. PO SCH (08:51)
[2018-10-30] MEDS: CYCLOBENZAPRINE 10 MG TABLET. PO PRN (08:51)
[2018-10-30] MEDS: rOPINIRole 1 MG TABLET. PO SCH (08:52)
[2018-10-30] MEDS: GABAPENTIN 300 MG CAPSULE. PO SCH (08:52)
[2018-10-30] MEDS: POTASSIUM CHLORIDE 20 MEQ TABLET.ER. PO SCH (08:52)
[2018-10-30] MEDS: MULTIVITAMIN with MINERAL TABLET. PO SCH (08:52)
[2018-10-30] MEDS: LOSARTAN POTASSIUM 50 MG TABLET. PO SCH (08:52)
[2018-10-30] MEDS: SUCRALFATE 1 GM TABLET. PO SCH (08:52)
[2018-10-30] MEDS: SENNOSIDES/DOCUSATE 8.6/50MG TABLET. PO SCH (08:52)
[2018-10-30] MEDS: NICOTINE 7MG PATCH. TD SCH (08:53)
[2018-10-30] MEDS: PANTOPRAZOLE 40 MG TABLET.DR. PO SCH (08:55)
[2018-10-30] MEDS: oxyCODONE IR 5 MG TABLET PO PRN ×2 (08:55→12:41)
[2018-10-30] MEDS: DICLOFENAC SODIUM 1% TOPICAL GEL 100GM TUBE. TP SCH ×2 (08:59→12:42)
[2018-10-30] MEDS: ALBUTEROL SULFATE 2.5 MG/3 ML NEBU. NEB SCH ×2 (09:08→12:13)
--- NOTE | 2018-10-30 10:19 | PDOC ---
PROGRESS NOTES Subjective Subjective feels better today Objective Objective Vital Signs Date Time Temp Pulse Resp B/P (MAP) Pulse Ox O2 Delivery O2 Flow Rate FiO2 10/30/18 09:11 92 Room Air 2.0 10/30/18 09:00 72 169/88 10/30/18 07:00 97.9 18 97.9 l Intake and Output 10/30/18 06:59 Intake Total 660 ml Output Total 200 ml Balance 460 ml Intake Oral 660 ml Output Urine Total 200 ml # Voids 3 Physical Exam Abdomen: Normal bowel sounds, Soft Heart: Regular rate, Normal S1, Normal S2 Extremities: No clubbing General: Alert HEENT: Atraumatic MUSCULOSKELETAL: No deformity Neck: Supple Neuro: Normal speech Psych/Mental Status: Mental status NL Skin: No breakdown Assessment Assessment 1. Mechanical fall, right hip intertrochanteric fracture?. 2. 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 3. Chronic obstructive pulmonary disease. 4. History of hepatitis was treated in the past. 5. Anxiety. 6. Depression. 7. Osteoporosis. PLAN:POD#4.continue coumadin Surgery: 10/26/2018 Preoperative diagnosis: Degenerative joint disease right hip with avascular necrosis, sudden increase in pain status post recent fall Postoperative diagnosis: Same with flattening of femoral head no evidence of intertrochanteric fracture Operative procedure: Right total hip arthroplasty inc pain meds. d/c to rehab/snu d/c plans for today spoke with case manger Comment Review of Relevant I have reviewed the following items yaima (where applicable) has been applied. Labs Laboratory Tests Test 10/30/18 06:00 Hemoglobin 10.5 g/dL (12.0-15.5) Hematocrit 31.4 % (36.0-47.0) Mean Corpuscular Hemoglobin Concent 33 g/dL (31-37) Prothrombin Time 16.8 SEC (11.7-14.0) Prothromb Time International Ratio 1.4 (0.8-1.1) Medications Current Medications Bupivacaine HCl (Sensorcaine-Mpf 0.25%) 10 ml 1X ONCE IJ ; Start 10/29/18 at 13:00; Stop 10/29/18 at 13:01; Status DC Clonidine HCl (Catapres) 0.1 mg PRN Q8HRS PRN PO HYPERTENSION Last administered on 10/29/18at 17:23; Start 10/29/18 at 17:15 Clonidine HCl (Catapres) 0.1 mg Q8HRS PO ; Start 10/29/18 at 17:30; Stop 10/29/18 at 17:17; Status DC Cyclobenzaprine HCl (Flexeril) 10 mg PRN Q6HRS PRN PO MUSCLE SPASMS Last administered on 10/30/18at 08:59; Start 10/29/18 at 10:45 Methylprednisolone Acetate (DEPO-Medrol 40MG VIAL) 40 mg 1X ONCE IM ; Start 10/29/18 at 13:00; Stop 10/29/18 at 13:01; Status DC Warfarin Sodium (Coumadin) 3 mg 1X WARF ONCE PO Last administered on 10/29/18at 14:55; Start 10/29/18 at 15:00; Stop 10/29/18 at 15:01; Status DC Vitals/I & O Vital Sign - Last 24 Hours 10/29/18 10/29/18 10/29/18 10/29/18 11:00 11:47 14:55 14:55 Temp 98.4 98.4 Pulse 80 Resp 18 B/P (MAP) 157/56 (89) Pulse Ox 92 O2 Delivery Room Air Nasal Cannula Room Air Room Air O2 Flow Rate 2.0 10/29/18 10/29/18 10/29/18 10/29/18 15:00 16:31 16:52 16:52 Temp 98.0 98.0 Pulse 79 Resp 16 B/P (MAP) 203/100 (134) Pulse Ox 92 O2 Delivery Room Air Nasal Cannula Room Air Room Air O2 Flow Rate 2.0 10/29/18 10/29/18 10/29/18 10/29/18 17:23 19:00 19:29 19:30 Temp 98.2 98.2 Pulse 79 77 Resp 16 B/P (MAP) 180/89 163/81 (108) Pulse Ox 92 88 92 O2 Delivery Room Air Room Air Nasal Cannula O2 Flow Rate 2.0 10/29/18 10/29/18 10/29/18 10/29/18 19:58 20:05 21:49 22:15 Resp 20 20 20 O2 Delivery Nasal Cannula Nasal Cannula Nasal Cannula Nasal Cannula O2 Flow Rate 2.0 2.0 2.0 10/29/18 10/30/18 10/30/1819 22:49 01:00 03:00 03:23 Temp 98.0 98.0 98.0 98.0 Pulse 72 68 Resp 16 20 16 20 B/P (MAP) 160/83 (108) 150/89 (109) Pulse Ox 97 96 O2 Delivery Room Air Nasal Cannula Room Air Room Air O2 Flow Rate 2.0 10/30/18 10/30/18 10/30/18 10/30/18 06:17 07:00 08:00 09:00 Temp 97.9 97.9 Pulse 72 72 Resp 20 18 B/P (MAP) 169/88 (115) 169/88 Pulse Ox 92 O2 Delivery Nasal Cannula Nasal Cannula Nasal Cannula O2 Flow Rate 2.0 2.0 2.0 10/30/18 10/30/18 10/30/18 09:00 09:00 09:11 Pulse Ox 92 O2 Delivery Nasal Cannula Nasal Cannula Room Air O2 Flow Rate 2.0 2.0 2.0 Intake and Output 10/29/18 10/29/18 10/30/18 14:59 22:59 06:59 Intake Total 180 ml 480 ml Output Total 200 ml Balance 180 ml -200 ml 480 ml ROBINSON BOLIVAR MD Oct 30, 2018 10:19
--- NOTE | 2018-10-30 10:25 | NUR ---
SS following up with discharge planning. planner scheduler, Dodie Cano, met with pt on 10/29/2018, and discussed half-way unit as [facility] that [facility] were full and had no beds. Pt requested referral be phoned and faxed to [facility], ; fax [phone]. Pt accepted at [facility]. SS will continue to follow for discharge planning.
--- NOTE | 2018-10-30 10:27 | NUR ---
Pharmacy Warfarin Dosing Note S:Pharmacy consulted to assist with anticoagulation therapy started 10/26/18 with target INR: 1.6 - 2.5 O:ALONSO BEAR is a 68 year old F with [facility] LABS: Last INR: 1.4 Last HGB: 10.5 Last HCT: 31.4 Last PLT: 156 Last dose of 3 mg given on 10/29/18 at 1445 Previous Regimen: Vitamin K given: Drug Interaction Changes: Same Interacting Drug Ongoing Drug Interactions: SERTRALINE, MELOXICAM A:INR of 1.4 is below desired range. Target range for this patient is: 1.6 - 2.5 P: Warfarin dose: 4 mg Today at 1600. Bridge Therapy: None - - Next INR due tomorrow. Pharmacy anticoagulation service will continue to follow. Sameer Talavera [facility], 10/30/18 [id number]
[2018-10-30] MEDS ORDERED: ZOLP5TAB PO (10:30)
[2018-10-30] MEDS ORDERED: POTA20TA4 PO (10:30)
[2018-10-30] MEDS ORDERED: Nicotine 7MG TD (10:30)
[2018-10-30] MEDS ORDERED: SENN-22 PO (10:30)
[2018-10-30] MEDS ORDERED: CYCL10TA2 PO (10:30)
[2018-10-30] MEDS ORDERED: WARF4TAB68 PO (10:30)
[2018-10-30] MEDS ORDERED: OXYC5TAB4 PO (10:30)
--- NOTE | 2018-10-30 10:33 | SNU/HH DC ---
DISCHARGE ORDERS DISCHARGE INFORMATION: DISCHARGE DATE: Oct 30, 2018 CONDITION ON DISCHARGE: Stable CODE STATUS: Code Status: Full SENIOR LIVING: SNF STAY <30 DAYS: Yes HOSPICE: HOSPICE: No HOSPICE EVAL & TREAT: No POST DISCHARGE ORDERS: ACTIVITY ORDERS: Activity as tolerated WEIGHT BEARING STATUS: As tolerated DIET AFTER DISCHARGE: Regular CHECKS AFTER DISCHARGE: CHECKS AFTER DISCHARGE: Check blood press - daily FOLLOW-UP: ANTICOAGULATION F/U NEEDED: coumadin for 21 days, check iNR,m,w,f TREATMENT/EQUIPMENT ORDERS: ADAPTIVE EQUIPMENT NEEDED: [facility] Physical Therapy For: Evalulation/Treatment Occupational Therapy For: Evaluation/Treatment DISCHARGE MEDICATIONS: Home Meds Active Scripts Cyclobenzaprine Hcl (CYCLOBENZAPRINE HCL) 10 Mg Tablet, 10 MG PO PRN Q6HRS PRN for MUSCLE SPASMS for 7 Days, TAB Prov:ROBINSON BOLIVAR MD 10/30/18 [Nicotine 7MG] 1 PATCH PATCH No Conflict Check, 1 PATCH TD DAILY for smoking for 30 Days Prov:ROBINSON BOLIVAR MD 10/30/18 Warfarin Sodium (COUMADIN) 4 Mg Tablet, 4 MG PO 1X WARF for dvt prevention for 21 Days, #21 TAB Prov:ROBINSON BOLIVAR MD 10/30/18 Oxycodone Hcl (OXYCODONE HCL IMMED.RELEASE ) 5 Mg Tablet, 10 MG PO PRN Q4HRS PRN for Pain score 4-6 for 7 Days, TAB Prov:ROBINSON BOLIVAR MD 10/30/18 Zolpidem Tartrate (AMBIEN) 5 Mg Tablet, 5 MG PO PRN QHS PRN for INSOMNIA for 10 Days, TAB Prov:ROBINSON BOLIVAR MD 10/30/18 Potassium Chloride (KLOR-CON M20) 20 Meq Tab.er.prt, 20 MEQ PO DAILYWBKFT for low pot for 30 Days, #30 TAB.SR Prov:ROBINSON BOLIVAR MD 10/30/18 Sennosides/Docusate Sodium (SENNA-TIME S TABLET) 1 Each Tablet, 1 TAB PO DAILY for constipation for 30 Days, #30 TAB Prov:ROBINSON BOLIVAR MD 10/30/18 Losartan Potassium (LOSARTAN POTASSIUM) 100 Mg Tablet, 100 MG PO DAILY for 30 Days, #30 TAB Prov:ROBINSON BOLIVAR MD 07/16/17 Albuterol Sulfate (VENTOLIN HFA INHALER) 18 Gm Hfa.aer.ad, 2 PUFF INH QID for FOR ASTHMA, #1 INHALER 0 Refills Prov:ROBINSON BOLIVAR MD 05/11/16 Reported Medications Sertraline Hcl (ZOLOFT) 100 Mg Tablet, 1 TAB PO DAILY for nerves, #30 TAB 5 Refills 01/23/18 Glycopyrrolate/Formoterol Fum (Bevespi Aerosphere Inhaler) 10.7 Gm Hfa.aer.ad, 10.7 GM IH BID for breathing, INHALER 01/23/18 Nystatin (NYSTATIN) 15 Gm Cream..g., 1 SPEEDY TP TID for rash, #30 GM 01/23/18 Diclofenac Sodium (VOLTAREN) 100 Gm Gel..gram., 1 GM TP QID for pain, #100 GM 2 Refills 01/23/18 Cyanocobalamin (Vitamin B-12) (VITAMIN B-12) 1,000 Mcg Tablet, 1 TAB PO DAILY for supplment, #30 TAB 2 Refills 01/23/18 Gabapentin (GABAPENTIN) 600 Mg Tablet, 600 MG PO TID, TAB 01/31/16 Ropinirole Hcl (ROPINIROLE HCL) 4 Mg Tablet, 4 MG PO DAILY, TAB 01/31/16 Omeprazole (OMEPRAZOLE) 40 Mg Capsule.dr, 1 CAP PO DAILY, #30 CAP 3 Refills 01/31/16 Alprazolam (ALPRAZOLAM) 0.25 Mg Tablet, 0.25 MG PO PRN Q6HRS PRN for ANXIETY / AGITATION, TAB 0 Refills 01/31/16 Discontinued Reported Medications Oxycodone/Apap 10-325 (PERCOCET 10-325 MG TABLET ) 1 Each Tablet, 1 TAB PO Q4- 6HRS, #40 TAB 01/31/16 ROBINSON BOLIVAR MD Oct 30, 2018 10:33
[2018-10-30 11:00] VITALS: BP 188/90
--- NOTE | 2018-10-30 11:01 | SNU/HH DC ---
DISCHARGE ORDERS DISCHARGE INFORMATION: DISCHARGE DATE: Oct 30, 2018 CONDITION ON DISCHARGE: Stable CODE STATUS: Code Status: Full POST DISCHARGE ORDERS: ACTIVITY ORDERS: Activity as tolerated WEIGHT BEARING STATUS: As tolerated DIET AFTER DISCHARGE: Regular CHECKS AFTER DISCHARGE: CHECKS AFTER DISCHARGE: Check blood press - daily FOLLOW-UP: LAB ORDERS FOR FOLLOW-UP: cbc,cmp weekly, inr m,w,f,keep inr between 2-3 ANTICOAGULATION F/U NEEDED: coumadin for 21 days only, check iNR,m,w,f TREATMENT/EQUIPMENT ORDERS: ADAPTIVE EQUIPMENT NEEDED: [facility] Physical Therapy For: Evalulation/Treatment Occupational Therapy For: Evaluation/Treatment DISCHARGE MEDICATIONS: Home Meds Active Scripts Cyclobenzaprine Hcl (CYCLOBENZAPRINE HCL) 10 Mg Tablet, 10 MG PO PRN Q6HRS PRN for MUSCLE SPASMS for 7 Days, TAB Prov:ROBINSON BOLIVAR MD 10/30/18 [Nicotine 7MG] 1 PATCH PATCH No Conflict Check, 1 PATCH TD DAILY for smoking for 30 Days Prov:ROBINSON BOLIVAR MD 10/30/18 Warfarin Sodium (COUMADIN) 4 Mg Tablet, 4 MG PO 1X WARF for dvt prevention for 21 Days, #21 TAB Prov:ROBINSON BOLIVAR MD 10/30/18 Oxycodone Hcl (OXYCODONE HCL IMMED.RELEASE ) 5 Mg Tablet, 10 MG PO PRN Q4HRS PRN for Pain score 4-6 for 7 Days, TAB Prov:ROBINSON BOLIVAR MD 10/30/18 Zolpidem Tartrate (AMBIEN) 5 Mg Tablet, 5 MG PO PRN QHS PRN for INSOMNIA for 10 Days, TAB Prov:ROBINSON BOLIVAR MD 10/30/18 Potassium Chloride (KLOR-CON M20) 20 Meq Tab.er.prt, 20 MEQ PO DAILYWBKFT for low pot for 30 Days, #30 TAB.SR Prov:ROBINSON BOLIVAR MD 10/30/18 Sennosides/Docusate Sodium (SENNA-TIME S TABLET) 1 Each Tablet, 1 TAB PO DAILY for constipation for 30 Days, #30 TAB Prov:ROBINSON BOLIVAR MD 10/30/18 Losartan Potassium (LOSARTAN POTASSIUM) 100 Mg Tablet, 100 MG PO DAILY for 30 Days, #30 TAB Prov:ROBINSON BOLIVAR MD 07/16/17 Albuterol Sulfate (VENTOLIN HFA INHALER) 18 Gm Hfa.aer.ad, 2 PUFF INH QID for FOR ASTHMA, #1 INHALER 0 Refills Prov:ROBINSON BOLIVAR MD 05/11/16 Reported Medications Sertraline Hcl (ZOLOFT) 100 Mg Tablet, 1 TAB PO DAILY for nerves, #30 TAB 5 Refills 01/23/18 Glycopyrrolate/Formoterol Fum (Bevespi Aerosphere Inhaler) 10.7 Gm Hfa.aer.ad, 10.7 GM IH BID for breathing, INHALER 01/23/18 Nystatin (NYSTATIN) 15 Gm Cream..g., 1 SPEEDY TP TID for rash, #30 GM 01/23/18 Diclofenac Sodium (VOLTAREN) 100 Gm Gel..gram., 1 GM TP QID for pain, #100 GM 2 Refills 01/23/18 Cyanocobalamin (Vitamin B-12) (VITAMIN B-12) 1,000 Mcg Tablet, 1 TAB PO DAILY for supplment, #30 TAB 2 Refills 01/23/18 Gabapentin (GABAPENTIN) 600 Mg Tablet, 600 MG PO TID, TAB 01/31/16 Ropinirole Hcl (ROPINIROLE HCL) 4 Mg Tablet, 4 MG PO DAILY, TAB 01/31/16 Omeprazole (OMEPRAZOLE) 40 Mg Capsule.dr, 1 CAP PO DAILY, #30 CAP 3 Refills 01/31/16 Alprazolam (ALPRAZOLAM) 0.25 Mg Tablet, 0.25 MG PO PRN Q6HRS PRN for ANXIETY / AGITATION, TAB 0 Refills 01/31/16 Discontinued Reported Medications Oxycodone/Apap 10-325 (PERCOCET 10-325 MG TABLET ) 1 Each Tablet, 1 TAB PO Q4- 6HRS, #40 TAB 01/31/16 ROBINSON BOLIVAR MD Oct 30, 2018 11:01
--- NOTE | 2018-10-30 13:11 | NUR ---
Pt discharging to [facility]. IV removed. Called and gave report to Dorothy. Pain meds administered. Assisted pt with dressing. All belongings were packed and sent with her. Assisted to wheelchair and was taken by transportation.
--- NOTE | 2018-10-30 15:07 | PATHOLOGY ---
[facility] Accession Number: [id number] . 01 Material submitted: . hip - RIGHT HIP BONES. Modifiers: right . 01 Clinical history: . Rt hip fx . 02 Diagnosis: "Right hip bones", removal: - Femoral head with focal hemorrhage and focal fibrosis of marrow space, findings consistent with fracture. (SKM:júnior; 10/30/2018) MBR 10/30/2018 1330 Local . 02 Electronically signed: . Hiram Moon MD, Pathologist NPI- [id number] . 01 Gross description: . Received in formalin labeled "Holland, Phyllis, right hip bones," is a femoral head with attached femoral neck measuring 4.7 x 4.4 x 4.2 cm in greatest dimensions. No further tissue is identified within the specimen container. The femoral head articular surface is flattened, granular and pale yellow-plata to dark brown and extensively eburnated in appearance. The femoral neck bone margin is flat and pale yellow-plata to light brown in appearance, grossly consistent with transection. Evidence of fracture at the femoral neck margin is not identified grossly. Sectioning through the specimen reveals a chalky, pale plata cut surfaces through the articular surface, with a layer of dusky chino-brown possible hemorrhagic bone underlying the articular surface. The remaining cut surfaces are cancellous and yellow-plata to hemorrhagic in appearance, with no cysts or lesions identified grossly. A full-thickness cross section of the articular surface is bisected and submitted entirely in cassette A1, following decalcification. A full-thickness cross section of the bone margin is bisected and submitted entirely in cassette A2, following decalcification. (DAC; 10/29/2018) XDC/XDC 10/29/2018 0717 Local . 02 Pathologist provided ICD-10: S72.001A . 02 CPT . 633673, 314372 Specimen Comment: A courtesy copy of this report has been sent to Specimen Comment: [phone], . Specimen Comment: Report sent to / DR BOLIVAR Performed at: [address], [place] [id number] MD Calin Alves MD Phone: [phone] Performed at: 02 [facility] [address] [place], [place] [id number] MD Jayden Luna MD Phone: [phone]
[2018-10-30] MEDS ORDERED: WARFARIN 4 MG TABLET. PO ONE (16:00)
== END 2018-10-30 13:13 | DRG 470 ==
LOC: 4 NORTH 10:47
PROVIDERS: ADMIT Internal Medicine; ATTEND Internal Medicine
PROC: 0SR906Z Replacement of Right Hip Joint with Oxidized Zirconium on Polyethylene Synthetic Substitute, Open Approach (ICD-10-PCS; principal; 2018-10-26 09:00)
DX: M16.11 Unilateral primary osteoarthritis, right hip (principal); M87.9 Osteonecrosis, unspecified; D62 Acute posthemorrhagic anemia; E78.5 Hyperlipidemia, unspecified; G89.29 Other chronic pain; I10 Essential (primary) hypertension; J44.9 Chronic obstructive pulmonary disease, unspecified; M54.16 Radiculopathy, lumbar region; M89.8X5 Other specified disorders of bone, thigh; M17.0 Bilateral primary osteoarthritis of knee; M81.0 Age-related osteoporosis without current pathological fracture; F32.9 Major depressive disorder, single episode, unspecified; F41.9 Anxiety disorder, unspecified; F17.210 Nicotine dependence, cigarettes, uncomplicated; Z88.2 Allergy status to sulfonamides; Z88.8 Allergy status to other drugs, medicaments and biological substances; Z71.6 Tobacco abuse counseling; W18.39XA Other fall on same level, initial encounter; Y93.89 Activity, other specified; Y92.89 Other specified places as the place of occurrence of the external cause; Y99.8 Other external cause status
CPT/HCPCS: 36415; 70450; 71250; 72192; 73502; 73721; 80048; 80053; 80076; 83735; 85014; 85018; 85025; 85610; 88305; 88311; 93005; 94640; 94760; 99406; A7015; C1713; G0238; J0171; J0690; J1100; J1644; J1885; J2001; J2250; J2270; J2405; J2704; J3010; J3490; J7030; J7120; J7613; Q0162; 97110; 97116; 97530; 97535; G0378